=== PATIENT | male | born 1935 | race Caucasian/White ===

== ENCOUNTER → 2016-06-11 | Outpatient (REF) | payer MEDICARE, OTHER ==
[2016-06-11 17:31] LABS: BASO % 0.3 % (0.0-1.0); EOS # 0.3 K/mm3 (0.0-0.50); EOS % 5.9 % (0.0-3.0); LARGE UNSTAINED CELL # 0.1 K/mm3 (0.0-0.4); LARGE UNSTAINED CELL % 2.1 % (0.0-4.0); LYMPH # 1.5 K/mm3 (1.5-4.5); LYMPH % 25.8 % (24.0-44.0); MEAN CORPUSCULAR HGB CONC 33.7 g/dl (32.0-36.5); MEAN CORPUSCULAR VOLUME 91.8 fl (80.0-96.0); MONO # 0.4 K/mm3 (0.0-0.8); MONO % 7.4 % (0.0-5.0); NEUTROPHILS # 3.3 K/mm3 (1.8-7.7); NEUTROPHILS % 58.5 % (36.0-66.0); PLATELET COUNT, AUTOMATED 204 k/mm3 (150-450); RED CELL DISTRIBUTION WIDTH 12.6 % (11.5-14.5); WHITE BLOOD COUNT 5.6 K/mm3 (4.0-10.0)
[2016-06-11 18:38] LABS: CALCIUM LEVEL 9.5 MG/DL (8.8-10.2); CREATININE FOR GFR 1.46 MG/DL (0.70-1.30); GLOMERULAR FILTRATION RATE 49.5 (>35); POTASSIUM SERUM 4.5 MEQ/L (3.5-5.1)
== END | disposition home or self-care (01) ==
LOC: M LABDRWCV 16:37
PROVIDERS: ATTEND Internal Medicine Interventional Cardiology
DX: I25.810 Atherosclerosis of coronary artery bypass graft(s) without angina pectoris (principal); R94.31 Abnormal electrocardiogram [ECG] [EKG]

== ENCOUNTER → 2016-06-20 | Outpatient (REF) | payer MEDICARE, OTHER ==
[2016-06-20 18:03] LABS: CREATININE FOR GFR 1.67 MG/DL (0.70-1.30); GLOMERULAR FILTRATION RATE 42.4 (>35)
== END ==
LOC: M LABDRWCV 16:09
PROVIDERS: ATTEND Internal Medicine Interventional Cardiology
DX: R79.89 Other specified abnormal findings of blood chemistry (principal); I10 Essential (primary) hypertension; E11.9 Type 2 diabetes mellitus without complications; J45.909 Unspecified asthma, uncomplicated; E78.00 Pure hypercholesterolemia, unspecified

== ENCOUNTER → 2016-07-10 | Outpatient (REF) | payer MEDICARE, OTHER ==
[2016-07-10 16:52] LABS: MEAN CORPUSCULAR HEMOGLOBIN 31.5 pg (27.0-33.0); MEAN CORPUSCULAR HGB CONC 33.9 g/dl (32.0-36.5); MEAN CORPUSCULAR VOLUME 93.1 fl (80.0-96.0); RED CELL DISTRIBUTION WIDTH 12.8 % (11.5-14.5); WHITE BLOOD COUNT 7.4 K/mm3 (4.0-10.0)
[2016-07-10 17:12] LABS: ALBUMIN 3.9 GM/DL (3.2-5.2); ALBUMIN/GLOBULIN RATIO 1.26 (1.00-1.93); BILIRUBIN,TOTAL 0.3 MG/DL (0.2-1.0); CALCIUM LEVEL 9.3 MG/DL (8.8-10.2); CREATININE FOR GFR 1.63 MG/DL (0.70-1.30); GLOMERULAR FILTRATION RATE 43.6 (>35); POTASSIUM SERUM 4.5 MEQ/L (3.5-5.1)
== END ==
LOC: M SFHCCAPE 07:00
PROVIDERS: ATTEND Internal Medicine
DX: D64.9 Anemia, unspecified (principal); E11.9 Type 2 diabetes mellitus without complications; E78.00 Pure hypercholesterolemia, unspecified
CPT/HCPCS: 36415; 80053; 80061; 82043; 83036; 85027; G0463

== ENCOUNTER 2016-07-19 13:46 | Outpatient (RCR) | payer MEDICARE, OTHER | END 2016-07-23 | LOC: M CR 13:46 | PROVIDERS: ATTEND Internal Medicine Cardiovascular Disease | DX: Z51.89 Encounter for other specified aftercare (principal); I25.10 Atherosclerotic heart disease of native coronary artery without angina pectoris ==

== ENCOUNTER → 2016-08-23 | Outpatient (RCR) | payer MEDICARE, OTHER | LOC: M CR 07-24 10:02 | PROVIDERS: ATTEND Internal Medicine Cardiovascular Disease | DX: Z51.89 Encounter for other specified aftercare (principal); I25.10 Atherosclerotic heart disease of native coronary artery without angina pectoris ==

== ENCOUNTER 2016-09-17 21:03 | Emergency (ER) | payer MEDICARE, OTHER ==
[~2016-09-17] VITALS: Ht 182.9 cm; Wt 104.3 kg
[2016-09-17] MEDS ORDERED: CARV6.25 PO (21:14)
[2016-09-17] MEDS ORDERED: BRIM1OPD OU (21:14)
[2016-09-17] MEDS ORDERED: GLIM4TAB PO (21:14)
[2016-09-17] MEDS ORDERED: AMLO5TAB2 PO (21:14)
[2016-09-17] MEDS ORDERED: METF500T4 PO (21:14)
[2016-09-17] MEDS ORDERED: LATA5OPD OU (21:14)
[2016-09-17] MEDS ORDERED: LOSARTAN-HCTZ PO (21:14)
[2016-09-17] MEDS ORDERED: BYDU1INJ INJ (21:14)
[2016-09-17] MEDS ORDERED: ROSU20TA PO (21:14)
[2016-09-17] MEDS ORDERED: LIDOCAINE 1% MDV 20ML VIAL SC ONE (21:45)
[2016-09-17] MEDS ORDERED: TETANUS/DIPHTHERIA TOX ADSORB ADULT 0.5ML SYR/VIAL (90714) IM ONE (22:00)
[2016-09-17 22:14] VITALS: BP 144/90
== END 2016-09-17 22:40 | disposition home or self-care (01) ==
LOC: M ED 22:01
DX: S61.211A Laceration without foreign body of left index finger without damage to nail, initial encounter (principal); W31.2XXA Contact with powered woodworking and forming machines, initial encounter; Y92.099 Unspecified place in other non-institutional residence as the place of occurrence of the external cause; Y93.89 Activity, other specified; Y99.8 Other external cause status; E11.22 Type 2 diabetes mellitus with diabetic chronic kidney disease; I12.9 Hypertensive chronic kidney disease with stage 1 through stage 4 chronic kidney disease, or unspecified chronic kidney disease; J45.909 Unspecified asthma, uncomplicated; E78.9 Disorder of lipoprotein metabolism, unspecified; N18.9 Chronic kidney disease, unspecified; Z91.018 Allergy to other foods; Z79.899 Other long term (current) drug therapy; Z79.84 Long term (current) use of oral hypoglycemic drugs

== ENCOUNTER 2016-09-20 12:55 | Outpatient (RCR) | payer MEDICARE, OTHER ==
[~2016-09-20 12:55] MED LIST: AMLO5TAB2 PO; BRIM1OPD OU; BYDU1INJ INJ; CARV6.25 PO; GLIM4TAB PO; LATA5OPD OU; LOSARTAN-HCTZ PO; METF500T4 PO; ROSU20TA PO
== END 2016-09-22 ==
LOC: M CR 12:55
PROVIDERS: ATTEND Internal Medicine Cardiovascular Disease
DX: Z51.89 Encounter for other specified aftercare (principal); I25.10 Atherosclerotic heart disease of native coronary artery without angina pectoris

== ENCOUNTER 2016-10-02 10:00 | Outpatient (RCR) | payer MEDICARE, OTHER | END 2016-10-23 | LOC: M CR 10:00 | PROVIDERS: ATTEND Internal Medicine Cardiovascular Disease | DX: Z51.89 Encounter for other specified aftercare (principal); I25.10 Atherosclerotic heart disease of native coronary artery without angina pectoris ==

== ENCOUNTER → 2016-11-06 | Outpatient (REF) | payer MEDICARE, OTHER ==
[2016-11-06 19:07] LABS: ALBUMIN 3.8 GM/DL (3.2-5.2); ALBUMIN/GLOBULIN RATIO 1.19 (1.00-1.93); BILIRUBIN,TOTAL 0.3 MG/DL (0.2-1.0); CALCIUM LEVEL 9.1 MG/DL (8.8-10.2); CREATININE FOR GFR 1.52 MG/DL (0.70-1.30); GLOMERULAR FILTRATION RATE 47.2 (>35); POTASSIUM SERUM 4.3 MEQ/L (3.5-5.1)
[2016-11-06 19:47] LABS: MEAN CORPUSCULAR HEMOGLOBIN 31.1 pg (27.0-33.0); MEAN CORPUSCULAR HGB CONC 33.2 g/dl (32.0-36.5); MEAN CORPUSCULAR VOLUME 93.5 fl (80.0-96.0); RED CELL DISTRIBUTION WIDTH 13.1 % (11.5-14.5); WHITE BLOOD COUNT 6.2 K/mm3 (4.0-10.0)
== END ==
LOC: M SFHCCAPE 07:20
PROVIDERS: ATTEND Internal Medicine
DX: E11.9 Type 2 diabetes mellitus without complications (principal); N18.3 Chronic kidney disease, stage 3 (moderate); D64.9 Anemia, unspecified

== ENCOUNTER → 2017-01-01 | Outpatient (REF) | payer MEDICARE, OTHER ==
[2017-01-01 20:34] LABS: CREATININE FOR GFR 1.53 MG/DL (0.70-1.30); GLOMERULAR FILTRATION RATE 46.9 (>35)
== END ==
LOC: M LABDRWCV 17:57
PROVIDERS: ATTEND Otolaryngology
DX: H90.3 Sensorineural hearing loss, bilateral (principal)

== ENCOUNTER → 2017-12-30 | Outpatient (REF) | payer MEDICARE, OTHER ==
[2017-12-30 12:21] LABS: HEMATOCRIT 31.2 % (42.0-52.0); HEMOGLOBIN 10.4 g/dl (13.5-17.5); MEAN CORPUSCULAR HEMOGLOBIN 30.7 pg (27.0-33.0); MEAN CORPUSCULAR HGB CONC 33.3 g/dl (32.0-36.5); PLATELET COUNT, AUTOMATED 188 10^3/uL (150-450); RED BLOOD COUNT 3.39 10^6/uL (4.30-6.10); RED CELL DISTRIBUTION WIDTH 12.9 % (11.5-14.5); WHITE BLOOD COUNT 5.7 10^3/uL (4.0-10.0)
[2017-12-30 12:47] LABS: PTH INTACT 111.1 PG/ML (18.5-88.0)
[2017-12-30 12:58] LABS: ALBUMIN/GLOBULIN RATIO 1.14 (1.00-1.93); ALKALINE PHOSPHATASE 67 U/L (45-117); ALT/SGPT 24 U/L (12-78); ANION GAP 8 MEQ/L (8-16); AST/SGOT 21 U/L (7-37); BILIRUBIN,TOTAL 0.4 MG/DL (0.2-1.0); BLOOD UREA NITROGEN 25 MG/DL (7-18); CALCIUM LEVEL 8.9 MG/DL (8.8-10.2); CARBON DIOXIDE LEVEL 27 MEQ/L (21-32); CHLORIDE LEVEL 107 MEQ/L (98-107); CHOLESTEROL LEVEL 194 MG/DL (<200); CHOLESTEROL RISK RATIO 4.311 (<5); GLOMERULAR FILTRATION RATE 38.7 (>35); GLUCOSE, FASTING 151 MG/DL (70-100); HDL CHOLESTEROL 45 MG/DL (>40); LDL CHOLESTEROL 109.4 MG/DL (<100); MAGNESIUM LEVEL 2.4 MG/DL (1.8-2.4); NON-HDL-C 149 MG/DL; POTASSIUM SERUM 4.8 MEQ/L (3.5-5.1); SODIUM LEVEL 142 MEQ/L (136-145); TOTAL PROTEIN 7.5 GM/DL (6.4-8.2); TRIGLYCERIDES LEVEL 198 MG/DL (<150)
[2017-12-30 14:08] LABS: ESTIMATED AVERAGE GLUCOSE 180 MG/DL (60-110); HEMOGLOBIN A1c 7.9 %
[2017-12-31 22:53] LABS: MAU/CREAT RATIO 119.6 MCG/MG (0.0-30.0)
== END ==
LOC: M SFHCPLAZ 11:24
DX: I12.9 Hypertensive chronic kidney disease with stage 1 through stage 4 chronic kidney disease, or unspecified chronic kidney disease (principal); E11.22 Type 2 diabetes mellitus with diabetic chronic kidney disease; D64.9 Anemia, unspecified; N18.3 Chronic kidney disease, stage 3 (moderate); E78.00 Pure hypercholesterolemia, unspecified
CPT/HCPCS: 83735

== ENCOUNTER → 2018-06-01 | Outpatient (REF) | payer MEDICARE, OTHER ==
[~2018-06-01] MED LIST changes: -AMLO5TAB2 PO; +AMLO5TAB6 PO; -ROSU20TA PO; +ROSU20TA4 PO
[2018-06-01 16:57] LABS: HEMATOCRIT 31.8 % (42.0-52.0); HEMOGLOBIN 10.2 g/dl (13.5-17.5); MEAN CORPUSCULAR HEMOGLOBIN 30.1 pg (27.0-33.0); MEAN CORPUSCULAR HGB CONC 32.1 g/dl (32.0-36.5); MEAN CORPUSCULAR VOLUME 93.8 fl (80.0-96.0); PLATELET COUNT, AUTOMATED 206 10^3/uL (150-450); RED BLOOD COUNT 3.39 10^6/uL (4.30-6.10); WHITE BLOOD COUNT 7.6 10^3/uL (4.0-10.0)
[2018-06-01 17:05] LABS: BILIRUBIN,TOTAL 0.3 MG/DL (0.2-1.0); CALCIUM LEVEL 8.7 MG/DL (8.8-10.2); CHOLESTEROL RISK RATIO 4.173 (<5); CREATININE FOR GFR 1.62 MG/DL (0.70-1.30); GLOMERULAR FILTRATION RATE 43.6 (>35); MAGNESIUM LEVEL 2.2 MG/DL (1.8-2.4); POTASSIUM SERUM 4.5 MEQ/L (3.5-5.1); PTH INTACT 87.1 PG/ML (18.5-88.0); TOTAL PROTEIN 7.2 GM/DL (6.4-8.2)
[2018-06-01 17:56] LABS: HEMOGLOBIN A1c 8.1 %
[2018-06-01 17:59] LABS: MAU/CREAT RATIO 244.6 MCG/MG (0.0-30.0)
== END ==
LOC: M SFHCCAPE 10:40
PROVIDERS: ATTEND Physician Assistant
DX: D64.9 Anemia, unspecified (principal); I12.9 Hypertensive chronic kidney disease with stage 1 through stage 4 chronic kidney disease, or unspecified chronic kidney disease; E11.9 Type 2 diabetes mellitus without complications; E78.00 Pure hypercholesterolemia, unspecified; N18.3 Chronic kidney disease, stage 3 (moderate)

== ENCOUNTER → 2018-10-13 | Outpatient (REF) | payer MEDICARE, OTHER ==
[~2018-10-13] MED LIST changes: +LATA0.0013 OU; -LATA5OPD OU
[2018-10-13 17:18] LABS: ALBUMIN 3.8 GM/DL (3.2-5.2); BILIRUBIN,TOTAL 0.3 MG/DL (0.2-1.0); CALCIUM LEVEL 9.1 MG/DL (8.8-10.2); CHOLESTEROL RISK RATIO 4.333 (<5); CREATININE FOR GFR 1.59 MG/DL (0.70-1.30); GLOMERULAR FILTRATION RATE 44.6 (>35); POTASSIUM SERUM 4.3 MEQ/L (3.5-5.1); TOTAL PROTEIN 6.7 GM/DL (6.4-8.2)
[2018-10-13 17:24] LABS: PTH INTACT 74.9 PG/ML (18.5-88.0)
[2018-10-13 19:36] LABS: HEMOGLOBIN A1c 8.1 %
== END ==
LOC: M SFHCCAPE 07:47
PROVIDERS: ATTEND Internal Medicine
DX: E11.9 Type 2 diabetes mellitus without complications (principal); E78.00 Pure hypercholesterolemia, unspecified; N18.3 Chronic kidney disease, stage 3 (moderate)

== ENCOUNTER → 2019-03-11 | Outpatient (REF) | payer MEDICARE, OTHER ==
[~2019-03-11] MED LIST changes: -GLIM4TAB PO; +GLIM4TAB3 PO; +METF-791 PO; -METF500T4 PO; -ROSU20TA4 PO; +ROSU20TA5 PO
[2019-03-11 16:32] LABS: HEMATOCRIT 29.1 % (42.0-52.0); HEMOGLOBIN 9.6 g/dl (13.5-17.5); PLATELET COUNT, AUTOMATED 178 10^3/uL (150-450); WHITE BLOOD COUNT 5.9 10^3/uL (4.0-10.0)
[2019-03-11 16:43] LABS: ALBUMIN 3.6 GM/DL (3.2-5.2); BILIRUBIN,TOTAL 0.4 MG/DL (0.2-1.0); CALCIUM LEVEL 8.8 MG/DL (8.8-10.2); CHOLESTEROL RISK RATIO 3.541 (<5); CREATININE FOR GFR 1.63 MG/DL (0.70-1.30); GLOMERULAR FILTRATION RATE 43.3 (>35); POTASSIUM SERUM 4.2 MEQ/L (3.5-5.1); TOTAL PROTEIN 6.7 GM/DL (6.4-8.2)
[2019-03-11 16:51] LABS: HEMOGLOBIN A1c 8.3 %
[2019-03-11 17:21] LABS: MAU/CREAT RATIO 412.1 MCG/MG (0.0-30.0)
== END ==
LOC: M SFHCCAPE 07:29
PROVIDERS: ATTEND Internal Medicine
DX: D64.9 Anemia, unspecified (principal); E11.9 Type 2 diabetes mellitus without complications; N18.3 Chronic kidney disease, stage 3 (moderate); E78.00 Pure hypercholesterolemia, unspecified

== ENCOUNTER → 2019-07-26 | Outpatient (REF) | payer MEDICARE, OTHER ==
[~2019-07-26] MED LIST changes: -GLIM4TAB3 PO; +GLIM4TAB5 PO
[2019-07-26 18:14] LABS: HEMOGLOBIN 9.7 g/dl (13.5-17.5); MEAN CORPUSCULAR HEMOGLOBIN 30.3 pg (27.0-33.0); MEAN CORPUSCULAR HGB CONC 32.3 g/dl (32.0-36.5); MEAN CORPUSCULAR VOLUME 93.8 fl (80.0-96.0); PLATELET COUNT, AUTOMATED 159 10^3/uL (150-450); WHITE BLOOD COUNT 5.4 10^3/uL (4.0-10.0)
[2019-07-26 18:45] LABS: ALBUMIN 3.9 GM/DL (3.2-5.2); BILIRUBIN,TOTAL 0.7 MG/DL (0.2-1.0); CALCIUM LEVEL 9.2 MG/DL (8.8-10.2); CHOLESTEROL RISK RATIO 4.461 (<5); CREATININE FOR GFR 1.71 MG/DL (0.70-1.30); FOLATE 7.5 NG/ML; GLOMERULAR FILTRATION RATE 40.9 (>35); MAGNESIUM LEVEL 2.1 MG/DL (1.8-2.4); POTASSIUM SERUM 4.3 MEQ/L (3.5-5.1); PTH INTACT 89.4 PG/ML (18.5-88.0)
[2019-07-26 19:24] LABS: MAU/CREAT RATIO 418.3 MCG/MG (0.0-30.0)
[2019-07-26 19:27] LABS: HEMOGLOBIN A1c 8.5 %
== END ==
LOC: M SFHCCAPE 07:15
PROVIDERS: ATTEND Internal Medicine
DX: D64.9 Anemia, unspecified (principal); N18.3 Chronic kidney disease, stage 3 (moderate); E11.9 Type 2 diabetes mellitus without complications; E78.00 Pure hypercholesterolemia, unspecified; I12.9 Hypertensive chronic kidney disease with stage 1 through stage 4 chronic kidney disease, or unspecified chronic kidney disease

== ENCOUNTER → 2020-01-05 | Outpatient (REF) | payer MEDICARE, OTHER ==
[~2020-01-05] MED LIST changes: +AMLO1TAB24 PO; -AMLO5TAB6 PO; -METF-791 PO; +METF-838 PO
[2020-02-05 10:27] LABS: HEMATOCRIT 30.2 % (42.0-52.0); HEMOGLOBIN 9.7 g/dl (13.5-17.5); MEAN CORPUSCULAR HEMOGLOBIN 31.7 pg (27.0-33.0); MEAN CORPUSCULAR HGB CONC 32.1 g/dl (32.0-36.5); MEAN CORPUSCULAR VOLUME 98.7 fl (80.0-96.0); PLATELET COUNT, AUTOMATED 152 10^3/uL (150-450); RED BLOOD COUNT 3.06 10^6/uL (4.30-6.10); WHITE BLOOD COUNT 7.1 10^3/uL (4.0-10.0)
[2020-02-18 21:54] LABS: BILIRUBIN,TOTAL 0.3 MG/DL (0.2-1.0); CHOLESTEROL RISK RATIO 4.179 (<5); CREATININE FOR GFR 1.78 MG/DL (0.70-1.30); GLOMERULAR FILTRATION RATE 39.1 (>35); HEMOGLOBIN A1c 7.2 %; POTASSIUM SERUM 4.8 MEQ/L (3.5-5.1); TOTAL PROTEIN 6.9 GM/DL (6.4-8.2)
== END ==
LOC: M LABDRAWC 15:20
PROVIDERS: ATTEND Internal Medicine
DX: D64.9 Anemia, unspecified (principal); G47.30 Sleep apnea, unspecified; N18.3 Chronic kidney disease, stage 3 (moderate); E78.00 Pure hypercholesterolemia, unspecified; I25.10 Atherosclerotic heart disease of native coronary artery without angina pectoris; E11.21 Type 2 diabetes mellitus with diabetic nephropathy

== ENCOUNTER → 2020-08-24 | Outpatient (REF) | payer MEDICARE, OTHER ==
[2020-08-24 18:02] LABS: CALCIUM LEVEL 9.6 MG/DL (8.8-10.2); CREATININE FOR GFR 1.59 MG/DL (0.70-1.30); GLOMERULAR FILTRATION RATE 44.4 (>35); POTASSIUM SERUM 4.6 MEQ/L (3.5-5.1)
[2020-08-24 18:20] LABS: BASO % 0.5 % (0.0-1.0); EOS # 0.9 10^3/uL (0.0-0.5); EOS % 11.4 % (0.0-3.0); HEMATOCRIT 31.7 % (42.0-52.0); LYMPH # 1.6 10^3/uL (1.5-5.0); LYMPH % 20.7 % (24.0-44.0); MEAN CORPUSCULAR HEMOGLOBIN 30.4 pg (27.0-33.0); MEAN CORPUSCULAR HGB CONC 31.5 g/dl (32.0-36.5); MEAN CORPUSCULAR VOLUME 96.4 fl (80.0-96.0); MONO # 0.6 10^3/uL (0.0-0.8); MONO % 8.1 % (2.0-8.0); NEUTROPHILS # 4.6 10^3/uL (1.5-8.5); NEUTROPHILS % 58.9 % (36.0-66.0); PLATELET COUNT, AUTOMATED 183 10^3/uL (150-450); RED BLOOD COUNT 3.29 10^6/uL (4.30-6.10); WHITE BLOOD COUNT 7.8 10^3/uL (4.0-10.0)
== END ==
LOC: M LABDRWCV 16:07
PROVIDERS: ATTEND Internal Medicine Cardiovascular Disease
DX: I25.10 Atherosclerotic heart disease of native coronary artery without angina pectoris (principal); R94.39 Abnormal result of other cardiovascular function study

== ENCOUNTER → 2020-09-06 | Outpatient (REF) | payer MEDICARE, OTHER ==
[2020-09-07 01:47] LABS: HEMOGLOBIN A1c 7.4 %
== END ==
LOC: M SFHCPLAZ 14:32
PROVIDERS: ATTEND Internal Medicine
DX: E11.21 Type 2 diabetes mellitus with diabetic nephropathy (principal)
CPT/HCPCS: 36415; 83036; G0463

== ENCOUNTER → 2021-01-01 | Outpatient (REF) | payer MEDICARE, OTHER ==
[2021-01-01 15:22] LABS: BASO % 0.3 % (0.0-1.0); EOS # 0.5 10^3/uL (0.0-0.5); HEMATOCRIT 29.1 % (42.0-52.0); HEMOGLOBIN 9.4 g/dl (13.5-17.5); LYMPH # 1.5 10^3/uL (1.5-5.0); LYMPH % 23.1 % (24.0-44.0); MEAN CORPUSCULAR HEMOGLOBIN 30.9 pg (27.0-33.0); MEAN CORPUSCULAR HGB CONC 32.3 g/dl (32.0-36.5); MEAN CORPUSCULAR VOLUME 95.7 fl (80.0-96.0); MONO # 0.6 10^3/uL (0.0-0.8); MONO % 8.8 % (2.0-8.0); NEUTROPHILS % 60.5 % (36.0-66.0); PLATELET COUNT, AUTOMATED 181 10^3/uL (150-450); RED BLOOD COUNT 3.04 10^6/uL (4.30-6.10); WHITE BLOOD COUNT 6.6 10^3/uL (4.0-10.0)
[2021-01-01 15:43] LABS: HEMOGLOBIN A1c 7.3 %
[2021-01-01 15:56] LABS: ALBUMIN 3.9 GM/DL (3.2-5.2); BILIRUBIN,TOTAL 0.3 MG/DL (0.2-1.0); CALCIUM LEVEL 8.9 MG/DL (8.8-10.2); CHOLESTEROL RISK RATIO 3.953 (<5); CREATININE FOR GFR 1.77 MG/DL (0.70-1.30); GLOMERULAR FILTRATION RATE 39.2 (>35); POTASSIUM SERUM 4.6 MEQ/L (3.5-5.1); TOTAL PROTEIN 6.8 GM/DL (6.4-8.2)
[2021-01-01 16:02] LABS: PTH INTACT 89.9 PG/ML (18.5-88.0)
== END ==
LOC: M SFHCCAPE 08:40
PROVIDERS: ATTEND Internal Medicine
DX: D64.9 Anemia, unspecified (principal); N18.30 Chronic kidney disease, stage 3 unspecified; E11.21 Type 2 diabetes mellitus with diabetic nephropathy; I25.10 Atherosclerotic heart disease of native coronary artery without angina pectoris
CPT/HCPCS: 80053; 80061; 82043; 83036; 83735; 83970; 85025; G0463

== ENCOUNTER → 2021-02-06 | Outpatient (REF) | payer MEDICARE, OTHER ==
[2021-02-06 15:46] LABS: BASO % 0.3 % (0.0-1.0); EOS # 0.3 10^3/uL (0.0-0.5); EOS % 4.1 % (0.0-3.0); HEMATOCRIT 28.9 % (42.0-52.0); HEMOGLOBIN 9.5 g/dl (13.5-17.5); LYMPH # 1.3 10^3/uL (1.5-5.0); LYMPH % 21.1 % (24.0-44.0); MEAN CORPUSCULAR HEMOGLOBIN 31.7 pg (27.0-33.0); MEAN CORPUSCULAR HGB CONC 32.9 g/dl (32.0-36.5); MEAN CORPUSCULAR VOLUME 96.3 fl (80.0-96.0); MONO # 0.6 10^3/uL (0.0-0.8); NEUTROPHILS # 3.9 10^3/uL (1.5-8.5); NEUTROPHILS % 64.7 % (36.0-66.0); PLATELET COUNT, AUTOMATED 174 10^3/uL (150-450); WHITE BLOOD COUNT 6.1 10^3/uL (4.0-10.0)
[2021-02-06 16:16] LABS: ALBUMIN 3.6 GM/DL (3.2-5.2); BILIRUBIN,TOTAL 0.4 MG/DL (0.2-1.0); CREATININE FOR GFR 1.59 MG/DL (0.70-1.30); GLOMERULAR FILTRATION RATE 44.4 (>35); POTASSIUM SERUM 4.7 MEQ/L (3.5-5.1); TOTAL PROTEIN 6.8 GM/DL (6.4-8.2); URIC ACID 6.7 MG/DL (3.5-7.2)
[2021-02-08 16:09] LABS: Lyme Disease IgG/IgM Antibodie <0.91 ISR (0.00-0.90); Lyme Disease IgM Ab Quantitati <0.80 index (0.00-0.79)
== END ==
LOC: M SFHCCAPE 12:04
PROVIDERS: ATTEND Physician Assistant
DX: M25.472 Effusion, left ankle (principal); M25.572 Pain in left ankle and joints of left foot
CPT/HCPCS: 36415; 80053; 84550; 85025; 86617; G0463

== ENCOUNTER → 2021-02-12 | Outpatient (CLI) | payer MEDICARE, OTHER | LOC: M CLY 14:14 | PROVIDERS: ATTEND Physician Assistant | DX: M25.472 Effusion, left ankle (principal) ==

== ENCOUNTER → 2021-02-22 | Outpatient (REF) | payer MEDICARE, OTHER | LOC: M SFHCCAPE 13:07 | PROVIDERS: ATTEND Physician Assistant | DX: R19.7 Diarrhea, unspecified (principal) ==

== ENCOUNTER → 2021-02-23 | Outpatient (CLI) | payer MEDICARE, OTHER | LOC: M LABSMTC 10:11 | PROVIDERS: ATTEND Pediatrics | DX: Z20.822 Contact with and (suspected) exposure to COVID-19 (principal) | CPT/HCPCS: C9803; U0003 ==

== ENCOUNTER → 2021-08-09 | Outpatient (REF) | payer MEDICARE, OTHER ==
[2021-08-09 17:02] LABS: BASO % 0.4 % (0.0-1.0); EOS # 0.3 10^3/uL (0.0-0.5); EOS % 3.7 % (0.0-3.0); HEMATOCRIT 24.9 % (42.0-52.0); HEMOGLOBIN 7.6 g/dl (13.5-17.5); LYMPH # 0.9 10^3/uL (1.5-5.0); LYMPH % 11.5 % (24.0-44.0); MEAN CORPUSCULAR HGB CONC 30.5 g/dl (32.0-36.5); MEAN CORPUSCULAR VOLUME 98.4 fl (80.0-96.0); MONO # 0.7 10^3/uL (0.0-0.8); MONO % 9.5 % (2.0-8.0); NEUTROPHILS # 5.6 10^3/uL (1.5-8.5); NEUTROPHILS % 74.5 % (36.0-66.0); PLATELET COUNT, AUTOMATED 170 10^3/uL (150-450); RED BLOOD COUNT 2.53 10^6/uL (4.30-6.10); WHITE BLOOD COUNT 7.5 10^3/uL (4.0-10.0)
[2021-08-09 17:29] LABS: CREATININE FOR GFR 1.81 MG/DL (0.70-1.30); GLOMERULAR FILTRATION RATE 38.1 (>35); PERCENT SATURATION 9.6 % (19.7-50.0); POTASSIUM SERUM 4.5 MEQ/L (3.5-5.1)
[2021-08-09 18:41] LABS: HEMOGLOBIN A1c 6.3 %
== END ==
LOC: M SFHCCAPE 08:37
PROVIDERS: ATTEND Internal Medicine
DX: I12.9 Hypertensive chronic kidney disease with stage 1 through stage 4 chronic kidney disease, or unspecified chronic kidney disease (principal); D64.9 Anemia, unspecified; E11.21 Type 2 diabetes mellitus with diabetic nephropathy

== ENCOUNTER 2021-08-16 12:24 | Inpatient (IN) | payer MEDICARE, OTHER ==
[~2021-08-16] VITALS: Ht 182.9 cm; Wt 93.0 kg
[2021-08-16] VITALS (7 sets, daily range): BP systolic 112–181; BP diastolic 53–100; O2SAT 97
[2021-08-16] MEDS ORDERED: COMBIVENT RESPIMAT 100-20MCG INHALER 4GM INH STA (12:44)
[2021-08-16] MEDS ORDERED: methylPREDNISolone 125MG 2ML VIAL IV ONE (12:45)
[2021-08-16 13:05] LABS: VENOUS BASE EXCESS -5.5 (-2.0-2.0); VENOUS HCO3 22.3 MEQ/L (23.0-27.0); VENOUS PARTIAL PRESSURE CO2 55.1 mmHg (38.0-50.0); VENOUS PARTIAL PRESSURE O2 40.1 mmHg (30.0-50.0); VENOUS PH 7.225 UNITS (7.330-7.430); VENOUS STANDARD HCO3 19.4 MEQ/L
[2021-08-16 13:05] LABS: BASO % 0.3 % (0.0-1.0); EOS # 0.2 10^3/uL (0.0-0.5); EOS % 1.3 % (0.0-3.0); HEMATOCRIT 29.3 % (42.0-52.0); LYMPH # 2.7 10^3/uL (1.5-5.0); LYMPH % 20.8 % (24.0-44.0); MEAN CORPUSCULAR HEMOGLOBIN 29.4 pg (27.0-33.0); MEAN CORPUSCULAR HGB CONC 30.7 g/dl (32.0-36.5); MEAN CORPUSCULAR VOLUME 95.8 fl (80.0-96.0); MONO % 7.9 % (2.0-8.0); NEUTROPHILS # 8.9 10^3/uL (1.5-8.5); NEUTROPHILS % 69.2 % (36.0-66.0); PLATELET COUNT, AUTOMATED 263 10^3/uL (150-450); RED BLOOD COUNT 3.06 10^6/uL (4.30-6.10); WHITE BLOOD COUNT 12.8 10^3/uL (4.0-10.0)
[2021-08-16 13:33] LABS: ALBUMIN 4.1 GM/DL (3.2-5.2); BILIRUBIN,DIRECT 0.2 MG/DL (0.0-0.2); BILIRUBIN,TOTAL 0.6 MG/DL (0.2-1.0); CALCIUM LEVEL 9.3 MG/DL (8.8-10.2); CREATININE FOR GFR 2.24 MG/DL (0.70-1.30); GLOMERULAR FILTRATION RATE 29.8 (>35); POTASSIUM SERUM 4.7 MEQ/L (3.5-5.1); THYROID STIMULATING HORMONE 2.01 uIU/ML (0.358-3.740); THYROXINE (T4) 7.8 UG/DL (4.5-12.0); TOTAL PROTEIN 7.5 GM/DL (6.4-8.2)
[2021-08-16] MEDS ORDERED: FUROSEMIDE 40MG/4ML VIAL (J1940) IV ONE (13:45)
[2021-08-16] MEDS ORDERED: NS 1,000 ML IV SCH (14:45)
[2021-08-16] MEDS ORDERED: METF-723 PO (15:08)
[2021-08-16] MEDS ORDERED: GLIM2TAB29 PO (15:08)
[2021-08-16] MEDS ORDERED: ASPI81TA26 PO (15:19)
[2021-08-16] MEDS ORDERED: VITA100018 PO (15:19)
[2021-08-16] MEDS ORDERED: VASC1CAP2 PO (15:19)
[2021-08-16] MEDS ORDERED: CEFU50TA PO (15:19)
[2021-08-16] MEDS ORDERED: HYDR12.55 PO (15:19)
[2021-08-16] MEDS ORDERED: FERR325T3 PO (15:19)
[2021-08-16] MEDS ORDERED: VENTAER INH (15:19)
[2021-08-16] MEDS ORDERED: PRED10TA2 PO (15:19)
[2021-08-16] MEDS ORDERED: XALA0.007 OU (15:19)
[2021-08-16] MEDS ORDERED: NITR0.4S14 SL (15:19)
[2021-08-16] MEDS ORDERED: HOME MED LIST COMPLETE! XX SCH (15:20)
[2021-08-16] MEDS ORDERED: GLUCAGON INJ 1MG VIAL SC PRN (15:30)
[2021-08-16] MEDS ORDERED: GLUCOSE 4GM CHEW TABLET PO PRN (15:30)
[2021-08-16] MEDS ORDERED: DEXTROSE 50% 50 ML SYRINGE IV PRN (15:30)
[2021-08-16] MEDS ORDERED: NITROGLYCERIN 2% OINT 1 GM *U/D* PKT TOP ONE (16:45)
[2021-08-16] MEDS ORDERED: FUROSEMIDE 100MG/10ML VIAL (J1940) IV SCH (17:00)
[2021-08-16] MEDS: HumaLOG INSULIN (NovoLOG) PER UNIT SC SCH ×2 (17:59→21:00)
[2021-08-16] MEDS: **hydrALAZINE HCL** 25 MG TAB PO SCH (18:00)
[2021-08-16 20:28] LABS: CK-MB VALUE MASS 5.1 NG/ML (<3.6); MB/CK RELATIVE INDEX 2.76 (< OR =4)
[2021-08-16] MEDS: LEVALBUTEROL 1.25 MG/0.5 ML CONCENTRATE NEB INH SCH (20:30)
[2021-08-16] MEDS: ROSUVASTATIN 10 MG TAB (CRESTOR) PO SCH (21:30)
[2021-08-16] MEDS: ASPIRIN 81MG ENTERIC TABLET PO SCH (21:30)
[2021-08-16] MEDS: BRIMONIDINE 0.1% OPHTH SOLN 5 ML OU SCH (21:31)
[2021-08-16] MEDS: CARVedilol 6.25 MG TAB PO SCH (21:31)
[2021-08-17] VITALS (19 sets, daily range): BP systolic 125–174; BP diastolic 60–79
[2021-08-17] MEDS: LEVALBUTEROL 1.25 MG/0.5 ML CONCENTRATE NEB INH SCH ×4 (01:40→19:49)
[2021-08-17 05:37] LABS: HEMATOCRIT 23.6 % (42.0-52.0); HEMOGLOBIN 7.5 g/dl (13.5-17.5); LYMPH # 0.6 10^3/uL (1.5-5.0); LYMPH % 10.1 % (24.0-44.0); MEAN CORPUSCULAR HEMOGLOBIN 29.6 pg (27.0-33.0); MEAN CORPUSCULAR HGB CONC 31.8 g/dl (32.0-36.5); MEAN CORPUSCULAR VOLUME 93.3 fl (80.0-96.0); MONO # 0.2 10^3/uL (0.0-0.8); MONO % 3.3 % (2.0-8.0); NEUTROPHILS # 5.3 10^3/uL (1.5-8.5); NEUTROPHILS % 86.3 % (36.0-66.0); PLATELET COUNT, AUTOMATED 207 10^3/uL (150-450); RED BLOOD COUNT 2.53 10^6/uL (4.30-6.10); WHITE BLOOD COUNT 6.1 10^3/uL (4.0-10.0)
[2021-08-17 05:54] LABS: CALCIUM LEVEL 9.1 MG/DL (8.8-10.2); CREATININE FOR GFR 2.24 MG/DL (0.70-1.30); GLOMERULAR FILTRATION RATE 29.8 (>35); MAGNESIUM LEVEL 1.8 MG/DL (1.8-2.4); POTASSIUM SERUM 4.6 MEQ/L (3.5-5.1)
[2021-08-17 05:59] LABS: CK-MB VALUE MASS 4.7 NG/ML (<3.6); MB/CK RELATIVE INDEX 2.96 (< OR =4)
[2021-08-17] MEDS: **hydrALAZINE HCL** 25 MG TAB PO SCH ×4 (06:00→17:58)
[2021-08-17] MEDS: GLIMEPIRIDE 2 MG TAB PO SCH (08:18)
[2021-08-17] MEDS: CARVedilol 6.25 MG TAB PO SCH ×2 (08:19→20:41)
[2021-08-17] MEDS: HumaLOG INSULIN (NovoLOG) PER UNIT SC SCH ×4 (08:20→20:47)
[2021-08-17] MEDS: BRIMONIDINE 0.1% OPHTH SOLN 5 ML OU SCH ×2 (08:21→22:10)
[2021-08-17] MEDS ORDERED: predniSONE 10 MG TAB PO SCH (09:00)
[2021-08-17] MEDS: LATANOPROST 0.005% OPHTH SOLN 2.5 ML OU SCH (10:34)
[2021-08-17] MEDS ORDERED: ACETAMINOPHEN TAB 650MG DOSE (2X325MG) PO ONE (20:30)
[2021-08-17] MEDS: ASPIRIN 81MG ENTERIC TABLET PO SCH (20:42)
[2021-08-17] MEDS: ROSUVASTATIN 10 MG TAB (CRESTOR) PO SCH (20:42)
[2021-08-18] VITALS (11 sets, daily range): BP systolic 114–150; BP diastolic 56–77
[2021-08-18] MEDS: diphenhydrAMINE 25MG CAP PO ONE ×2 (00:14→01:00)
[2021-08-18] MEDS: LEVALBUTEROL 1.25 MG/0.5 ML CONCENTRATE NEB INH SCH ×4 (00:38→20:33)
[2021-08-18] MEDS: **hydrALAZINE HCL** 25 MG TAB PO SCH ×5 (05:23→23:58)
[2021-08-18 06:20] LABS: BASO % 0.1 % (0.0-1.0); EOS # 0.1 10^3/uL (0.0-0.5); EOS % 0.9 % (0.0-3.0); HEMATOCRIT 24.6 % (42.0-52.0); HEMOGLOBIN 7.8 g/dl (13.5-17.5); LYMPH # 1.6 10^3/uL (1.5-5.0); LYMPH % 18.9 % (24.0-44.0); MEAN CORPUSCULAR HEMOGLOBIN 29.5 pg (27.0-33.0); MEAN CORPUSCULAR HGB CONC 31.7 g/dl (32.0-36.5); MEAN CORPUSCULAR VOLUME 93.2 fl (80.0-96.0); MONO # 0.9 10^3/uL (0.0-0.8); MONO % 10.4 % (2.0-8.0); NEUTROPHILS # 5.9 10^3/uL (1.5-8.5); NEUTROPHILS % 69.2 % (36.0-66.0); PLATELET COUNT, AUTOMATED 221 10^3/uL (150-450); RED BLOOD COUNT 2.64 10^6/uL (4.30-6.10); WHITE BLOOD COUNT 8.5 10^3/uL (4.0-10.0)
[2021-08-18 06:45] LABS: CALCIUM LEVEL 9.2 MG/DL (8.8-10.2); CREATININE FOR GFR 1.79 MG/DL (0.70-1.30); GLOMERULAR FILTRATION RATE 38.6 (>35); MAGNESIUM LEVEL 1.9 MG/DL (1.8-2.4)
[2021-08-18] MEDS: HumaLOG INSULIN (NovoLOG) PER UNIT SC SCH ×4 (07:30→20:16)
[2021-08-18] MEDS: LATANOPROST 0.005% OPHTH SOLN 2.5 ML OU SCH (09:03)
[2021-08-18] MEDS: CARVedilol 6.25 MG TAB PO SCH ×2 (09:03→20:16)
[2021-08-18] MEDS: FUROSEMIDE 40MG/4ML VIAL (J1940) IV SCH ×2 (09:03→18:06)
[2021-08-18] MEDS: GLIMEPIRIDE 2 MG TAB PO SCH (09:03)
[2021-08-18] MEDS: BRIMONIDINE 0.1% OPHTH SOLN 5 ML OU SCH ×2 (10:05→20:57)
[2021-08-18] MEDS ORDERED: BISACODYL 10 MG SUPP PR ONE (12:00)
[2021-08-18] MEDS: ASPIRIN 81MG ENTERIC TABLET PO SCH (20:16)
[2021-08-18] MEDS: ROSUVASTATIN 10 MG TAB (CRESTOR) PO SCH (20:16)
[2021-08-19] VITALS (9 sets, daily range): BP systolic 116–154; BP diastolic 55–80
[2021-08-19] MEDS: LEVALBUTEROL 1.25 MG/0.5 ML CONCENTRATE NEB INH SCH ×3 (00:53→15:10)
[2021-08-19] MEDS: **hydrALAZINE HCL** 25 MG TAB PO SCH ×2 (05:22→12:00)
[2021-08-19 05:33] LABS: BASO % 0.3 % (0.0-1.0); EOS # 0.3 10^3/uL (0.0-0.5); EOS % 3.8 % (0.0-3.0); HEMATOCRIT 27.7 % (42.0-52.0); HEMOGLOBIN 8.7 g/dl (13.5-17.5); LYMPH # 1.5 10^3/uL (1.5-5.0); LYMPH % 20.7 % (24.0-44.0); MEAN CORPUSCULAR HEMOGLOBIN 29.2 pg (27.0-33.0); MEAN CORPUSCULAR HGB CONC 31.4 g/dl (32.0-36.5); MONO # 0.9 10^3/uL (0.0-0.8); MONO % 12.3 % (2.0-8.0); NEUTROPHILS # 4.5 10^3/uL (1.5-8.5); NEUTROPHILS % 62.5 % (36.0-66.0); PLATELET COUNT, AUTOMATED 225 10^3/uL (150-450); RED BLOOD COUNT 2.98 10^6/uL (4.30-6.10); WHITE BLOOD COUNT 7.1 10^3/uL (4.0-10.0)
[2021-08-19 05:52] LABS: CALCIUM LEVEL 8.8 MG/DL (8.8-10.2); CREATININE FOR GFR 1.71 MG/DL (0.70-1.30); GLOMERULAR FILTRATION RATE 40.7 (>35); MAGNESIUM LEVEL 1.8 MG/DL (1.8-2.4); POTASSIUM SERUM 3.7 MEQ/L (3.5-5.1)
[2021-08-19] MEDS: HumaLOG INSULIN (NovoLOG) PER UNIT SC SCH ×2 (07:30→12:24)
[2021-08-19] MEDS: GLIMEPIRIDE 2 MG TAB PO SCH (08:30)
[2021-08-19] MEDS: BRIMONIDINE 0.1% OPHTH SOLN 5 ML OU SCH (08:31)
[2021-08-19] MEDS: CARVedilol 6.25 MG TAB PO SCH (08:31)
[2021-08-19] MEDS ORDERED: LASI40TA9 PO (08:31)
[2021-08-19] MEDS ORDERED: LATANOPROST 0.005% OPHTH SOLN 2.5 ML OU SCH (21:00)
== END 2021-08-19 16:01 | disposition home or self-care (01) | DRG 291 ==
LOC: EDBD 12:24 → M ED 12:24 → M ED INP 15:28 → ENRESERV 16:10 → M ICU 17:41 → M PCU 08-17 17:38
PROVIDERS: ADMIT Internal Medicine Nephrology; ATTEND Internal Medicine Nephrology
PROC: 30233N1 Transfusion of Nonautologous Red Blood Cells into Peripheral Vein, Percutaneous Approach (ICD-10-PCS; principal; 2021-08-18)
DX: I13.0 Hypertensive heart and chronic kidney disease with heart failure and stage 1 through stage 4 chronic kidney disease, or unspecified chronic kidney disease (principal); I50.23 Acute on chronic systolic (congestive) heart failure; J81.0 Acute pulmonary edema; J96.01 Acute respiratory failure with hypoxia; J96.02 Acute respiratory failure with hypercapnia; N18.32 Chronic kidney disease, stage 3b; I25.119 Atherosclerotic heart disease of native coronary artery with unspecified angina pectoris; I16.0 Hypertensive urgency; E11.22 Type 2 diabetes mellitus with diabetic chronic kidney disease; D50.9 Iron deficiency anemia, unspecified; J45.909 Unspecified asthma, uncomplicated; G47.33 Obstructive sleep apnea (adult) (pediatric); H40.9 Unspecified glaucoma; E78.00 Pure hypercholesterolemia, unspecified; G43.909 Migraine, unspecified, not intractable, without status migrainosus; I65.23 Occlusion and stenosis of bilateral carotid arteries; I25.2 Old myocardial infarction; Z95.5 Presence of coronary angioplasty implant and graft; Z85.820 Personal history of malignant melanoma of skin; Z85.828 Personal history of other malignant neoplasm of skin; Z87.891 Personal history of nicotine dependence; Z79.82 Long term (current) use of aspirin; Z79.84 Long term (current) use of oral hypoglycemic drugs; Z79.899 Other long term (current) drug therapy

== ENCOUNTER → 2021-10-03 | Outpatient (REF) | payer MEDICARE, OTHER ==
[~2021-10-03] MED LIST changes: +ASPI81TA26 PO; +CEFU50TA PO; +FERR325T3 PO; +GLIM2TAB29 PO; +HYDR12.55 PO; +LASI40TA9 PO; +METF-723 PO; +NITR0.4S14 SL; +PRED10TA2 PO; +VASC1CAP2 PO; +VENTAER INH; +VITA100018 PO; +XALA0.007 OU
[2021-10-03 17:30] LABS: BASO % 0.5 % (0.0-1.0); EOS # 0.3 10^3/uL (0.0-0.5); EOS % 5.4 % (0.0-3.0); HEMATOCRIT 29.5 % (42.0-52.0); HEMOGLOBIN 9.6 g/dl (13.5-17.5); LYMPH # 1.5 10^3/uL (1.5-5.0); LYMPH % 25.8 % (24.0-44.0); MEAN CORPUSCULAR HEMOGLOBIN 30.3 pg (27.0-33.0); MEAN CORPUSCULAR HGB CONC 32.5 g/dl (32.0-36.5); MEAN CORPUSCULAR VOLUME 93.1 fl (80.0-96.0); MONO # 0.6 10^3/uL (0.0-0.8); MONO % 10.8 % (2.0-8.0); NEUTROPHILS # 3.3 10^3/uL (1.5-8.5); NEUTROPHILS % 57.2 % (36.0-66.0); PLATELET COUNT, AUTOMATED 164 10^3/uL (150-450); RED BLOOD COUNT 3.17 10^6/uL (4.30-6.10); WHITE BLOOD COUNT 5.7 10^3/uL (4.0-10.0)
[2021-10-03 17:53] LABS: CALCIUM LEVEL 9.1 MG/DL (8.8-10.2); CREATININE FOR GFR 2.03 MG/DL (0.70-1.30); GLOMERULAR FILTRATION RATE 33.4 (>35); POTASSIUM SERUM 4.6 MEQ/L (3.5-5.1)
== END ==
LOC: M LABDRWCV 16:03
PROVIDERS: ATTEND Nurse Practitioner Adult Health
DX: I25.10 Atherosclerotic heart disease of native coronary artery without angina pectoris (principal); E78.00 Pure hypercholesterolemia, unspecified; I11.0 Hypertensive heart disease with heart failure; I50.32 Chronic diastolic (congestive) heart failure

== ENCOUNTER → 2021-10-03 | Outpatient (REF) | payer MEDICARE, OTHER ==
[2021-10-03 17:21] LABS: BASO % 0.5 % (0.0-1.0); EOS # 0.3 10^3/uL (0.0-0.5); EOS % 5.7 % (0.0-3.0); HEMATOCRIT 29.9 % (42.0-52.0); HEMOGLOBIN 9.7 g/dl (13.5-17.5); LYMPH # 1.5 10^3/uL (1.5-5.0); LYMPH % 26.9 % (24.0-44.0); MEAN CORPUSCULAR HEMOGLOBIN 30.4 pg (27.0-33.0); MEAN CORPUSCULAR HGB CONC 32.4 g/dl (32.0-36.5); MEAN CORPUSCULAR VOLUME 93.7 fl (80.0-96.0); MONO # 0.5 10^3/uL (0.0-0.8); MONO % 9.5 % (2.0-8.0); NEUTROPHILS # 3.2 10^3/uL (1.5-8.5); NEUTROPHILS % 57.2 % (36.0-66.0); PLATELET COUNT, AUTOMATED 162 10^3/uL (150-450); RED BLOOD COUNT 3.19 10^6/uL (4.30-6.10); WHITE BLOOD COUNT 5.7 10^3/uL (4.0-10.0)
== END ==
LOC: M SFHCCAPE 08:24
PROVIDERS: ATTEND Internal Medicine
DX: D64.9 Anemia, unspecified (principal); I12.9 Hypertensive chronic kidney disease with stage 1 through stage 4 chronic kidney disease, or unspecified chronic kidney disease; N18.30 Chronic kidney disease, stage 3 unspecified

== ENCOUNTER → 2021-10-31 | Outpatient (REF) | payer MEDICARE, OTHER ==
[2021-10-31 16:37] LABS: CALCIUM LEVEL 8.9 MG/DL (8.8-10.2); CREATININE FOR GFR 1.77 MG/DL (0.70-1.30); GLOMERULAR FILTRATION RATE 39.1 (>35); MAGNESIUM LEVEL 1.8 MG/DL (1.8-2.4); POTASSIUM SERUM 4.3 MEQ/L (3.5-5.1)
[2021-10-31 16:54] LABS: PTH INTACT 100.5 PG/ML (18.5-88.0)
== END ==
LOC: M SFHCCAPE 09:04
PROVIDERS: ATTEND Internal Medicine
DX: D64.9 Anemia, unspecified (principal); N18.32 Chronic kidney disease, stage 3b

== ENCOUNTER → 2021-11-05 | Outpatient (REF) | payer MEDICARE, OTHER ==
[2021-11-05 16:31] LABS: BASO % 0.3 % (0.0-1.0); EOS # 0.4 10^3/uL (0.0-0.5); EOS % 5.8 % (0.0-3.0); HEMATOCRIT 27.3 % (42.0-52.0); HEMOGLOBIN 8.6 g/dl (13.5-17.5); LYMPH # 1.7 10^3/uL (1.5-5.0); LYMPH % 26.6 % (24.0-44.0); MEAN CORPUSCULAR HEMOGLOBIN 30.5 pg (27.0-33.0); MEAN CORPUSCULAR HGB CONC 31.5 g/dl (32.0-36.5); MEAN CORPUSCULAR VOLUME 96.8 fl (80.0-96.0); MONO # 0.6 10^3/uL (0.0-0.8); NEUTROPHILS # 3.6 10^3/uL (1.5-8.5); PLATELET COUNT, AUTOMATED 155 10^3/uL (150-450); RED BLOOD COUNT 2.82 10^6/uL (4.30-6.10); WHITE BLOOD COUNT 6.2 10^3/uL (4.0-10.0)
== END ==
LOC: M SFHCCAPE 08:32
PROVIDERS: ATTEND Internal Medicine
DX: D64.9 Anemia, unspecified (principal)

== ENCOUNTER → 2022-01-07 | Outpatient (CLI) | payer MEDICARE, OTHER | LOC: M PLAIMG 15:48 | PROVIDERS: ATTEND Orthopaedic Surgery | DX: M43.12 Spondylolisthesis, cervical region (principal) ==

== ENCOUNTER → 2022-01-18 | Outpatient (CLI) | payer MEDICARE, OTHER ==
[2022-01-18 13:00] LABS: HEMATOCRIT 27.5 % (42.0-52.0); MEAN CORPUSCULAR HEMOGLOBIN 32.4 pg (27.0-33.0); MEAN CORPUSCULAR HGB CONC 32.7 g/dl (32.0-36.5); MEAN CORPUSCULAR VOLUME 98.9 fl (80.0-96.0); PLATELET COUNT, AUTOMATED 163 10^3/uL (150-450); RED BLOOD COUNT 2.78 10^6/uL (4.30-6.10); WHITE BLOOD COUNT 6.1 10^3/uL (4.0-10.0)
[2022-01-18 13:39] LABS: ALBUMIN 4.1 GM/DL (3.2-5.2); BILIRUBIN,TOTAL 0.4 MG/DL (0.2-1.0); CALCIUM LEVEL 9.8 MG/DL (8.8-10.2); CHOLESTEROL RISK RATIO 3.883 (<5); CREATININE FOR GFR 2.34 MG/DL (0.70-1.30); FREE T4 0.87 NG/DL (0.76-1.46); GLOMERULAR FILTRATION RATE 28.3 (>35); PERCENT SATURATION 16.9 % (19.7-50.0); POTASSIUM SERUM 4.4 MEQ/L (3.5-5.1); THYROID STIMULATING HORMONE 1.92 uIU/ML (0.358-3.740); TOTAL PROTEIN 7.3 GM/DL (6.4-8.2)
[2022-01-18 13:52] LABS: HEMOGLOBIN A1c 6.4 %
== END ==
LOC: M PLALAB 11:04
PROVIDERS: ATTEND Internal Medicine Hematology
DX: D64.9 Anemia, unspecified (principal); E11.21 Type 2 diabetes mellitus with diabetic nephropathy

== ENCOUNTER → 2022-01-30 | Outpatient (CLI) | payer MEDICARE, OTHER ==
[2022-01-30 14:13] LABS: ALBUMIN 3.9 GM/DL (3.2-5.2); CALCIUM LEVEL 9.2 MG/DL (8.8-10.2); CREATININE FOR GFR 2.05 MG/DL (0.70-1.30); PHOSPHORUS LEVEL 2.8 MG/DL (2.5-4.9); POTASSIUM SERUM 4.4 MEQ/L (3.5-5.1)
[2022-01-30 14:35] LABS: CREATININE, URINE 48.5 MG/DL; MAU/CREAT RATIO 315.4 MCG/MG (0.0-30.0)
== END ==
LOC: M PLALAB 11:30
PROVIDERS: ATTEND Internal Medicine Hematology
DX: N18.32 Chronic kidney disease, stage 3b (principal)

== ENCOUNTER → 2022-03-20 | Outpatient (CLI) | payer MEDICARE, OTHER | LOC: M RAD 09:07 | PROVIDERS: ATTEND Internal Medicine Nephrology | DX: N18.32 Chronic kidney disease, stage 3b (principal); I70.1 Atherosclerosis of renal artery ==

== ENCOUNTER → 2022-04-04 | Outpatient (REF) | payer MEDICARE, OTHER ==
[2022-04-04 18:11] LABS: BASO % 0.6 % (0.0-1.0); EOS # 0.4 10^3/uL (0.0-0.5); HEMATOCRIT 24.9 % (42.0-52.0); HEMOGLOBIN 7.8 g/dl (13.5-17.5); LYMPH # 1.1 10^3/uL (1.5-5.0); MEAN CORPUSCULAR HEMOGLOBIN 31.2 pg (27.0-33.0); MEAN CORPUSCULAR HGB CONC 31.3 g/dl (32.0-36.5); MEAN CORPUSCULAR VOLUME 99.6 fl (80.0-96.0); MONO # 0.5 10^3/uL (0.0-0.8); MONO % 7.6 % (2.0-8.0); NEUTROPHILS # 4.9 10^3/uL (1.5-8.5); NEUTROPHILS % 70.2 % (36.0-66.0); PLATELET COUNT, AUTOMATED 222 10^3/uL (150-450)
[2022-04-04 18:52] LABS: CALCIUM LEVEL 9.6 MG/DL (8.8-10.2); CREATININE FOR GFR 1.98 MG/DL (0.70-1.30); GLOMERULAR FILTRATION RATE 34.3 (>35); POTASSIUM SERUM 4.6 MEQ/L (3.5-5.1)
== END ==
LOC: M LABDRAWC 17:43 → M LABDRWCV 17:43
PROVIDERS: ATTEND Nurse Practitioner Adult Health
DX: D64.9 Anemia, unspecified (principal); I25.10 Atherosclerotic heart disease of native coronary artery without angina pectoris; R53.83 Other fatigue; I13.0 Hypertensive heart and chronic kidney disease with heart failure and stage 1 through stage 4 chronic kidney disease, or unspecified chronic kidney disease

== ENCOUNTER → 2022-04-10 | Outpatient (REF) | payer MEDICARE, OTHER ==
[2022-04-10 18:26] LABS: BASO % 0.3 % (0.0-1.0); EOS # 0.3 10^3/uL (0.0-0.5); EOS % 4.2 % (0.0-3.0); HEMATOCRIT 23.6 % (42.0-52.0); HEMOGLOBIN 7.3 g/dl (13.5-17.5); LYMPH # 1.2 10^3/uL (1.5-5.0); LYMPH % 16.7 % (24.0-44.0); MEAN CORPUSCULAR HEMOGLOBIN 30.9 pg (27.0-33.0); MEAN CORPUSCULAR HGB CONC 30.9 g/dl (32.0-36.5); MONO # 0.6 10^3/uL (0.0-0.8); NEUTROPHILS # 4.9 10^3/uL (1.5-8.5); NEUTROPHILS % 69.2 % (36.0-66.0); PLATELET COUNT, AUTOMATED 198 10^3/uL (150-450); RED BLOOD COUNT 2.36 10^6/uL (4.30-6.10); WHITE BLOOD COUNT 7.1 10^3/uL (4.0-10.0)
[2022-04-10 19:40] LABS: CALCIUM LEVEL 9.4 MG/DL (8.3-10.6); CREATININE FOR GFR 2.12 MG/DL (0.70-1.30); GLOMERULAR FILTRATION RATE 31.7 (>35); POTASSIUM SERUM 4.6 MMOL/L (3.5-5.1)
== END ==
LOC: M LAB REF 17:03 → M LABDRWCV 17:03
PROVIDERS: ATTEND Nurse Practitioner Adult Health
DX: D64.9 Anemia, unspecified (principal); I25.10 Atherosclerotic heart disease of native coronary artery without angina pectoris; R53.83 Other fatigue

== ENCOUNTER → 2022-04-23 | Outpatient (REF) | payer MEDICARE, OTHER ==
[2022-04-23 18:38] LABS: CREATININE, URINE 112.7 MG/DL; MAU/CREAT RATIO 241.3 MCG/MG (0.0-30.0)
[2022-04-23 18:47] LABS: BASO % 0.5 % (0.0-1.0); EOS # 0.4 10^3/uL (0.0-0.5); EOS % 6.9 % (0.0-3.0); HEMATOCRIT 25.2 % (42.0-52.0); HEMOGLOBIN 7.6 g/dl (13.5-17.5); LYMPH # 1.1 10^3/uL (1.5-5.0); LYMPH % 17.9 % (24.0-44.0); MEAN CORPUSCULAR HEMOGLOBIN 30.5 pg (27.0-33.0); MEAN CORPUSCULAR HGB CONC 30.2 g/dl (32.0-36.5); MEAN CORPUSCULAR VOLUME 101.2 fl (80.0-96.0); MONO # 0.5 10^3/uL (0.0-0.8); MONO % 7.6 % (2.0-8.0); NEUTROPHILS # 4.1 10^3/uL (1.5-8.5); NEUTROPHILS % 66.6 % (36.0-66.0); PLATELET COUNT, AUTOMATED 236 10^3/uL (150-450); RED BLOOD COUNT 2.49 10^6/uL (4.30-6.10); WHITE BLOOD COUNT 6.1 10^3/uL (4.0-10.0)
[2022-04-23 19:00] LABS: POTASSIUM SERUM 4.5 MMOL/L (3.5-5.1)
[2022-04-23 19:01] LABS: ALBUMIN 3.6 G/DL (3.2-5.2)
[2022-04-23 19:05] LABS: CALCIUM LEVEL 8.9 MG/DL (8.3-10.6)
[2022-04-23 19:07] LABS: BILIRUBIN,TOTAL 0.5 MG/DL (0.3-1.2); CREATININE FOR GFR 1.91 MG/DL (0.70-1.30); GLOMERULAR FILTRATION RATE 35.7 (>35); PERCENT SATURATION 13.8 % (19.7-50.0)
[2022-04-23 19:08] LABS: CHOLESTEROL RISK RATIO 4.45 (<5); HDL CHOLESTEROL 33.9 MG/DL (>40); LDL CHOLESTEROL 89.7 MG/DL (<100); TOTAL PROTEIN 6.6 G/DL (5.7-8.2)
[2022-04-23 19:14] LABS: THYROID STIMULATING HORMONE 1.391 uIU/ML (0.55-4.78)
== END ==
LOC: M SFHCPLAZ 11:26
PROVIDERS: ATTEND Internal Medicine Hematology
DX: E11.21 Type 2 diabetes mellitus with diabetic nephropathy (principal)

== ENCOUNTER → 2022-04-24 | Outpatient (CLI) | payer MEDICARE, OTHER | LOC: M LAB 13:02 | PROVIDERS: ATTEND Internal Medicine Hematology | DX: E11.22 Type 2 diabetes mellitus with diabetic chronic kidney disease (principal) ==

== ENCOUNTER 2022-04-25 11:15 | Outpatient (CLI) | payer MEDICARE, OTHER ==
[~2022-04-25] VITALS: Ht 180.3 cm; Wt 88.2 kg
[2022-04-25 11:20] VITALS: BP 144/63
[2022-04-25 12:45] VITALS: BP 133/64
[2022-04-25 13:05] VITALS: BP 112/57
[2022-04-25 14:00] VITALS: BP 113/58
[2022-04-25 14:45] VITALS: BP 142/72
== END 2022-04-25 14:45 | disposition home or self-care (01) ==
LOC: M INFU 11:15
PROVIDERS: ATTEND Internal Medicine Hematology
DX: D64.9 Anemia, unspecified (principal)
CPT/HCPCS: 36430; 36592; 86850; 86900; 86901; 86920; P9016

== ENCOUNTER 2022-04-30 11:30 | Outpatient (CLI) | payer MEDICARE, OTHER ==
[~2022-04-30] VITALS: Ht 180.3 cm; Wt 88.2 kg
[2022-04-30 11:30] VITALS: BP 141/62
[~2022-04-30 11:30] MED LIST changes: +ALBUTEROL SULFATE 2.5MG/0.5ML INH NEB SOLN INH PRN; +EPINEPHrine INJ 1 MG/ML 1ML AMP IM PRN; +FERRIC CARBOXYMALTOSE INJ 750 MG in NS 250 ML (>50kg) IV ONE; +NS 1,000 ML IV SCH; +diphenhydrAMINE 50MG/ML VIAL IV PRN; +methylPREDNISolone 125MG 2ML VIAL IV PRN
[2022-04-30] MEDS ORDERED: FERRIC CARBOXYMALTOSE INJ 750 MG in NS 250 ML (>50kg) IV ONE ×3 (11:50)
[2022-04-30 12:30] VITALS: BP 138/68
[2022-04-30 13:40] VITALS: BP 125/56
== END 2022-04-30 13:40 | disposition home or self-care (01) ==
LOC: M INFU 11:30
PROVIDERS: ATTEND Internal Medicine Hematology
DX: D64.9 Anemia, unspecified (principal)
CPT/HCPCS: 83550; 96365; J1439

== ENCOUNTER → 2022-04-30 | Outpatient (REF) | payer MEDICARE, OTHER ==
[2022-04-30 18:58] LABS: PERCENT SATURATION 131.9 % (19.7-50.0)
== END ==
LOC: M LAB REF 16:49
PROVIDERS: ATTEND Internal Medicine Nephrology
DX: D50.9 Iron deficiency anemia, unspecified (principal)

== ENCOUNTER 2022-05-07 14:58 | Outpatient (CLI) | payer MEDICARE, OTHER ==
[~2022-05-07] VITALS: Ht 182.9 cm; Wt 90.8 kg
[2022-05-07 14:15] VITALS: BP 134/61
[~2022-05-07 14:58] MED LIST changes: -FERRIC CARBOXYMALTOSE INJ 750 MG in NS 250 ML (>50kg) IV ONE; -NS 1,000 ML IV SCH
[2022-05-07] MEDS ORDERED: FERRIC CARBOXYMALTOSE INJ 750 MG in NS 250 ML (>50kg) IV ONE ×3 (15:15)
[2022-05-07] MEDS ORDERED: NS 1,000 ML IV SCH (15:15)
[2022-05-07 15:45] VITALS: BP 127/59
== END 2022-05-07 15:45 | disposition home or self-care (01) ==
LOC: M INFU 14:58
PROVIDERS: ATTEND Internal Medicine Hematology
DX: D64.9 Anemia, unspecified (principal)
CPT/HCPCS: 96365; G0463; J1439

== ENCOUNTER → 2022-06-10 | Outpatient (CLI) | payer MEDICARE, OTHER ==
[~2022-06-10] MED LIST changes: -ALBUTEROL SULFATE 2.5MG/0.5ML INH NEB SOLN INH PRN; -EPINEPHrine INJ 1 MG/ML 1ML AMP IM PRN; -diphenhydrAMINE 50MG/ML VIAL IV PRN; -methylPREDNISolone 125MG 2ML VIAL IV PRN
== END ==
LOC: M PLARAD 14:06
PROVIDERS: ATTEND Internal Medicine Hematology
DX: C43.72 Malignant melanoma of left lower limb, including hip (principal)
CPT/HCPCS: 78816; A9552

== ENCOUNTER → 2022-06-17 | Outpatient (CLI) | payer MEDICARE, OTHER ==
[2022-06-17 13:42] LABS: BASO % 0.5 % (0.0-1.0); EOS # 0.3 10^3/uL (0.0-0.5); EOS % 4.6 % (0.0-3.0); HEMATOCRIT 32.8 % (42.0-52.0); HEMOGLOBIN 10.4 g/dl (13.5-17.5); LYMPH # 1.8 10^3/uL (1.5-5.0); MEAN CORPUSCULAR HEMOGLOBIN 31.4 pg (27.0-33.0); MEAN CORPUSCULAR HGB CONC 31.7 g/dl (32.0-36.5); MEAN CORPUSCULAR VOLUME 99.1 fl (80.0-96.0); MONO # 0.6 10^3/uL (0.0-0.8); MONO % 9.7 % (2.0-8.0); NEUTROPHILS # 3.6 10^3/uL (1.5-8.5); PLATELET COUNT, AUTOMATED 168 10^3/uL (150-450); RED BLOOD COUNT 3.31 10^6/uL (4.30-6.10); WHITE BLOOD COUNT 6.3 10^3/uL (4.0-10.0)
[2022-06-17 13:54] LABS: INR 0.95; PROTHROMBIN TIME 12.9 SECONDS (12.5-14.5)
[2022-06-17 13:55] LABS: PARTIAL THROMBOPLASTIN TIME 28.9 SECONDS (24.8-34.2)
[2022-06-17 14:12] LABS: MAGNESIUM LEVEL 2.2 MG/DL (1.8-2.4)
[2022-06-17 14:13] LABS: ALBUMIN 3.9 G/DL (3.2-5.2); BILIRUBIN,TOTAL 0.3 MG/DL (0.3-1.2); CALCIUM LEVEL 9.6 MG/DL (8.3-10.6); CREATININE FOR GFR 1.71 MG/DL (0.70-1.30); GLOMERULAR FILTRATION RATE 40.6 (>35); POTASSIUM SERUM 4.9 MMOL/L (3.5-5.1); TOTAL PROTEIN 7.1 G/DL (5.7-8.2)
== END ==
LOC: M PLALAB 11:44
PROVIDERS: ATTEND Family Medicine
DX: N18.32 Chronic kidney disease, stage 3b (principal); D50.9 Iron deficiency anemia, unspecified

== ENCOUNTER → 2022-07-18 | Outpatient (CLI) | payer MEDICARE, OTHER ==
[~2022-07-18] MED LIST changes: +ALBU2.5V10 INH; +ALBU8.5H PO; +BUDE10.2 INH; +CIDA500T2 PO; +COQ-100C5 PO; +FLON1SPR; +ICOS1CAP PO; +JARD1TAB PO; +LOSA50TA5 PO; +NORV5TAB PO; +ROSU10TA6 PO; +TRUL0.5I SC
== END ==
LOC: M LABSMTC 11:27
PROVIDERS: ATTEND Anesthesiology
DX: Z01.812 Encounter for preprocedural laboratory examination (principal); Z11.52 Encounter for screening for COVID-19

== ENCOUNTER 2022-07-23 08:19 | Day surgery (SDC) | payer MEDICARE, OTHER ==
[~2022-07-23] VITALS: Ht 180.3 cm; Wt 83.9 kg
[~2022-07-23 08:19] MED LIST changes: +NS 1,000 ML IV ONE
[2022-07-23] MEDS ORDERED: GLYCOPYRROLATE INJ 0.2 MG/ML 2 ML VIAL As Ordered ONE (09:09)
[2022-07-23] MEDS ORDERED: propofoL 200 MG/20 ML VIAL As Ordered ONE ×2 (09:09→09:18)
[2022-07-23] MEDS ORDERED: LIDOCAINE 2% 100MG/5ML SDV (FOR ANES.) As Ordered ONE (09:09)
[2022-07-23 09:55] VITALS: BP 134/72
== END 2022-07-23 10:07 | disposition home or self-care (01) ==
LOC: M OPP 08:19
PROVIDERS: ATTEND Internal Medicine Gastroenterology
DX: K64.8 Other hemorrhoids (principal); K44.9 Diaphragmatic hernia without obstruction or gangrene; D50.9 Iron deficiency anemia, unspecified; Z80.0 Family history of malignant neoplasm of digestive organs; I25.2 Old myocardial infarction; E11.9 Type 2 diabetes mellitus without complications; G47.33 Obstructive sleep apnea (adult) (pediatric); I25.810 Atherosclerosis of coronary artery bypass graft(s) without angina pectoris; E78.00 Pure hypercholesterolemia, unspecified; G43.909 Migraine, unspecified, not intractable, without status migrainosus; I51.9 Heart disease, unspecified; Z79.02 Long term (current) use of antithrombotics/antiplatelets; Z79.51 Long term (current) use of inhaled steroids; Z79.82 Long term (current) use of aspirin; Z79.84 Long term (current) use of oral hypoglycemic drugs; Z79.899 Other long term (current) drug therapy; Z91.018 Allergy to other foods; Z99.89 Dependence on other enabling machines and devices; Z87.891 Personal history of nicotine dependence

== ENCOUNTER → 2022-07-29 | Outpatient (CLI) | payer MEDICARE, OTHER ==
[~2022-07-29] MED LIST changes: -NS 1,000 ML IV ONE
[2022-07-29 17:43] LABS: HEMATOCRIT 32.7 % (42.0-52.0); HEMOGLOBIN 10.4 g/dl (13.5-17.5); MEAN CORPUSCULAR HEMOGLOBIN 31.3 pg (27.0-33.0); MEAN CORPUSCULAR HGB CONC 31.8 g/dl (32.0-36.5); MEAN CORPUSCULAR VOLUME 98.5 fl (80.0-96.0); PLATELET COUNT, AUTOMATED 182 10^3/uL (150-450); RED BLOOD COUNT 3.32 10^6/uL (4.30-6.10); WHITE BLOOD COUNT 7.7 10^3/uL (4.0-10.0)
[2022-07-29 18:08] LABS: HEMOGLOBIN A1c 7.3 % (4.0-6.0)
[2022-07-29 18:11] LABS: ALBUMIN 3.6 G/DL (3.2-5.2); BILIRUBIN,TOTAL 0.4 MG/DL (0.3-1.2); CALCIUM LEVEL 9.3 MG/DL (8.3-10.6); CHOLESTEROL RISK RATIO 4.04 (<5); CREATININE FOR GFR 1.55 MG/DL (0.70-1.30); FERRITIN 568.7 NG/ML (10.5-307.3); GLOMERULAR FILTRATION RATE 45.5 (>35); HDL CHOLESTEROL 41.5 MG/DL (>40); LDL CHOLESTEROL 91.5 MG/DL (<100); PERCENT SATURATION 17.9 % (19.7-50.0); POTASSIUM SERUM 4.2 MMOL/L (3.5-5.1); THYROID STIMULATING HORMONE 1.467 uIU/ML (0.55-4.78); TOTAL 25(OH) VITAMIN D 15.3 NG/ML (20.0-100.0)
[2022-07-29 18:12] LABS: FOLATE 9.41 NG/ML (>5.4)
[2022-07-29 18:38] LABS: CREATININE, URINE 87.3 MG/DL
[2022-07-29 18:52] LABS: MAU/CREAT RATIO 487.9 MCG/MG (0.0-30.0)
== END ==
LOC: M PLALAB 14:47
PROVIDERS: ATTEND Internal Medicine Hematology
DX: N40.1 Benign prostatic hyperplasia with lower urinary tract symptoms (principal); E78.00 Pure hypercholesterolemia, unspecified; E11.21 Type 2 diabetes mellitus with diabetic nephropathy; Z79.899 Other long term (current) drug therapy

== ENCOUNTER 2022-08-08 09:10 | Outpatient (CLI) | payer MEDICARE, OTHER ==
[~2022-08-08] VITALS: Ht 182.9 cm; Wt 84.0 kg
[~2022-08-08 09:10] MED LIST changes: +ALBUTEROL SULFATE 2.5MG/0.5ML INH NEB SOLN INH PRN; +EPINEPHrine INJ 1 MG/ML 1ML AMP IM PRN; +diphenhydrAMINE 50MG/ML VIAL IV PRN; +methylPREDNISolone 125MG 2ML VIAL IV PRN
[2022-08-08 09:15] VITALS: BP 138/65
[2022-08-08] MEDS ORDERED: FERRIC CARBOXYMALTOSE INJ 750 MG in NS 250 ML (>50kg) IV ONE ×3 (09:30)
[2022-08-08] MEDS ORDERED: NS 1,000 ML IV SCH (09:30)
[2022-08-08 10:50] VITALS: BP 129/61
== END 2022-08-08 10:50 | disposition home or self-care (01) ==
LOC: M INFU 09:10
PROVIDERS: ATTEND Internal Medicine Hematology
DX: D50.9 Iron deficiency anemia, unspecified (principal); Z91.010 Allergy to peanuts
CPT/HCPCS: 96365; J1439

== ENCOUNTER → 2022-09-17 | Outpatient (CLI) | payer MEDICARE, OTHER ==
[~2022-09-17] MED LIST changes: -ALBUTEROL SULFATE 2.5MG/0.5ML INH NEB SOLN INH PRN; +E-Z-PAQUE 96% w/w SUSP 176GM BTL As Ordered ONE; -EPINEPHrine INJ 1 MG/ML 1ML AMP IM PRN; -diphenhydrAMINE 50MG/ML VIAL IV PRN; -methylPREDNISolone 125MG 2ML VIAL IV PRN
== END ==
LOC: M RAD 10:17
PROVIDERS: ATTEND Physician Assistant Medical
DX: D50.9 Iron deficiency anemia, unspecified (principal)

== ENCOUNTER → 2022-10-01 | Outpatient (CLI) | payer MEDICARE, OTHER ==
[~2022-10-01] MED LIST changes: -E-Z-PAQUE 96% w/w SUSP 176GM BTL As Ordered ONE
[2022-10-01 15:04] LABS: HEMATOCRIT 30.4 % (42.0-52.0); HEMOGLOBIN 9.6 g/dl (13.5-17.5); MEAN CORPUSCULAR HEMOGLOBIN 32.3 pg (27.0-33.0); MEAN CORPUSCULAR HGB CONC 31.6 g/dl (32.0-36.5); MEAN CORPUSCULAR VOLUME 102.4 fl (80.0-96.0); PLATELET COUNT, AUTOMATED 157 10^3/uL (150-450); RED BLOOD COUNT 2.97 10^6/uL (4.30-6.10); WHITE BLOOD COUNT 6.7 10^3/uL (4.0-10.0)
[2022-10-01 15:34] LABS: FERRITIN 613.8 NG/ML (10.5-307.3); PERCENT SATURATION 23.9 % (19.7-50.0)
== END ==
LOC: M PLALAB 10:49
PROVIDERS: ATTEND Internal Medicine Hematology
DX: D64.9 Anemia, unspecified (principal)

== ENCOUNTER → 2022-12-04 | Outpatient (REF) | payer MEDICARE, OTHER ==
[~2022-12-04] MED LIST changes: -ROSU20TA5 PO; +ROSU20TA61 PO
[2022-12-04 17:40] LABS: CREATININE FOR GFR 1.74 MG/DL (0.70-1.30); GLOMERULAR FILTRATION RATE 39.8 (>35); POTASSIUM SERUM 4.4 MMOL/L (3.5-5.1)
== END ==
LOC: M SFHCCAPE 07:24
PROVIDERS: ATTEND Physician Assistant
DX: Z87.898 Personal history of other specified conditions (principal); Z12.5 Encounter for screening for malignant neoplasm of prostate; E11.9 Type 2 diabetes mellitus without complications
CPT/HCPCS: 80048; 83036; G0103

== ENCOUNTER → 2023-02-04 | Outpatient (CLI) | payer MEDICARE, OTHER | LOC: M PLAIMG 13:10 | PROVIDERS: ATTEND Physician Assistant Medical | DX: R93.3 Abnormal findings on diagnostic imaging of other parts of digestive tract (principal) ==

== ENCOUNTER → 2023-04-14 | Outpatient (CLI) | payer MEDICARE, OTHER ==
[2023-04-14 14:42] LABS: HEMATOCRIT 32.7 % (42.0-52.0); HEMOGLOBIN 10.5 g/dl (13.5-17.5); MEAN CORPUSCULAR HEMOGLOBIN 32.1 pg (27.0-33.0); MEAN CORPUSCULAR HGB CONC 32.1 g/dl (32.0-36.5); PLATELET COUNT, AUTOMATED 170 10^3/uL (150-450); RED BLOOD COUNT 3.27 10^6/uL (4.30-6.10); WHITE BLOOD COUNT 6.7 10^3/uL (4.0-10.0)
[2023-04-14 14:57] LABS: HEMOGLOBIN A1c 6.2 % (4.0-6.0)
[2023-04-14 15:03] LABS: CREATININE, URINE 112.1 MG/DL
[2023-04-14 15:04] LABS: MAU/CREAT RATIO 160.5 MCG/MG (0.0-30.0)
[2023-04-14 15:05] LABS: C REACTIVE PROTEIN QUANTITATIV < 0.40 MG/DL (<1.0)
[2023-04-14 15:10] LABS: ALBUMIN 3.9 G/DL (3.2-5.2); ALKALINE PHOSPHATASE 67 U/L (46-116); ALT/SGPT 24 U/L (7.0-40); AST/SGOT 34 U/L (<34); BILIRUBIN,TOTAL 0.4 MG/DL (0.3-1.2); BLOOD UREA NITROGEN 31 MG/DL (9-23); CALCIUM LEVEL 9.1 MG/DL (8.3-10.6); CARBON DIOXIDE LEVEL 29 MMOL/L (20-31); CHLORIDE LEVEL 104 MMOL/L (98-107); CHOLESTEROL LEVEL 182 MG/DL (<200); CHOLESTEROL RISK RATIO 4.46 (<5); FREE T4 1.12 NG/DL (0.89-1.76); GLOMERULAR FILTRATION RATE 35.9 (>35); GLUCOSE, FASTING 123 MG/DL (74-106); HDL CHOLESTEROL 40.8 MG/DL (>40); NON-HDL-C 141.2 MG/DL; POTASSIUM SERUM 4.7 MMOL/L (3.5-5.1); SODIUM LEVEL 140 MMOL/L (136-145); THYROID STIMULATING HORMONE 1.572 uIU/ML (0.55-4.78); TOTAL 25(OH) VITAMIN D 57.9 NG/ML (20.0-100.0); TRIGLYCERIDES LEVEL 176 MG/DL (<150)
[2023-04-14 15:12] LABS: VITAMIN B12 LEVEL > 2000 PG/ML (211-911)
== END ==
LOC: M PLALAB 11:11
PROVIDERS: ATTEND Internal Medicine Hematology
DX: E11.21 Type 2 diabetes mellitus with diabetic nephropathy (principal); Z79.899 Other long term (current) drug therapy

== ENCOUNTER → 2023-04-14 | Outpatient (CLI) | payer MEDICARE, OTHER | LOC: M PLAIMG 10:02 | PROVIDERS: ATTEND Internal Medicine Pulmonary Disease | DX: R91.8 Other nonspecific abnormal finding of lung field (principal); J91.8 Pleural effusion in other conditions classified elsewhere ==

== ENCOUNTER → 2023-04-24 | Outpatient (REF) | payer MEDICARE, OTHER | LOC: M SFHCCAPE 07:53 | PROVIDERS: ATTEND Physician Assistant | DX: R97.20 Elevated prostate specific antigen [PSA] (principal) ==

== ENCOUNTER → 2023-07-17 | Outpatient (CLI) | payer MEDICARE, OTHER | LOC: M PLAIMG 14:40 | PROVIDERS: ATTEND Physician Assistant Medical | DX: R05.3 Chronic cough (principal) ==

== ENCOUNTER → 2023-07-21 | Outpatient (REF) | payer MEDICARE, OTHER | LOC: M SFHCCAPE 10:53 | PROVIDERS: ATTEND Physician Assistant Medical | DX: R30.0 Dysuria (principal) ==

== ENCOUNTER → 2023-07-29 | Outpatient (CLI) | payer MEDICARE, OTHER ==
[2023-07-29 17:50] LABS: ALBUMIN 3.6 G/DL (3.2-5.2); BILIRUBIN,TOTAL 0.6 MG/DL (0.3-1.2); CALCIUM LEVEL 9.4 MG/DL (8.3-10.6); CREATININE FOR GFR 2.37 MG/DL (0.70-1.30); GLOMERULAR FILTRATION RATE 27.8 (>35); POTASSIUM SERUM 4.6 MMOL/L (3.5-5.1); TOTAL PROTEIN 6.8 G/DL (5.7-8.2)
== END ==
LOC: M PLALAB 14:48
PROVIDERS: ATTEND Physician Assistant Medical
DX: R06.09 Other forms of dyspnea (principal); I50.42 Chronic combined systolic (congestive) and diastolic (congestive) heart failure

== ENCOUNTER → 2023-07-31 | Outpatient (REF) | payer MEDICARE, OTHER ==
[2023-07-31 18:43] LABS: CREATININE FOR GFR 2.28 MG/DL (0.70-1.30); GLOMERULAR FILTRATION RATE 29.1 (>35); POTASSIUM SERUM 4.7 MMOL/L (3.5-5.1)
== END ==
LOC: M SFHCCAPE 14:02
PROVIDERS: ATTEND Physician Assistant Medical
DX: B37.41 Candidal cystitis and urethritis (principal); R06.09 Other forms of dyspnea; I50.42 Chronic combined systolic (congestive) and diastolic (congestive) heart failure; Z79.899 Other long term (current) drug therapy

== ENCOUNTER → 2023-08-04 | Outpatient (REF) | payer MEDICARE, OTHER ==
[2023-08-04 18:27] LABS: ALBUMIN 3.3 G/DL (3.2-5.2); BILIRUBIN,TOTAL 0.3 MG/DL (0.3-1.2); CREATININE FOR GFR 2.27 MG/DL (0.70-1.30); GLOMERULAR FILTRATION RATE 29.2 (>35); POTASSIUM SERUM 4.4 MMOL/L (3.5-5.1); TOTAL PROTEIN 6.6 G/DL (5.7-8.2)
== END ==
LOC: M SFHCCAPE 13:41
PROVIDERS: ATTEND Physician Assistant Medical
DX: I50.42 Chronic combined systolic (congestive) and diastolic (congestive) heart failure (principal)

== ENCOUNTER → 2023-08-14 | Outpatient (CLI) | payer MEDICARE, OTHER ==
[2023-08-14 16:02] LABS: BASO % 0.3 % (0.0-1.0); EOS # 0.2 10^3/uL (0.0-0.5); EOS % 2.4 % (0.0-3.0); HEMATOCRIT 25.7 % (42.0-52.0); HEMOGLOBIN 8.1 g/dl (13.5-17.5); LYMPH % 12.2 % (24.0-44.0); MEAN CORPUSCULAR HEMOGLOBIN 31.4 pg (27.0-33.0); MEAN CORPUSCULAR HGB CONC 31.5 g/dl (32.0-36.5); MEAN CORPUSCULAR VOLUME 99.6 fl (80.0-96.0); MONO # 0.6 10^3/uL (0.0-0.8); MONO % 7.6 % (2.0-8.0); NEUTROPHILS # 6.1 10^3/uL (1.5-8.5); NEUTROPHILS % 77.1 % (36.0-66.0); PLATELET COUNT, AUTOMATED 221 10^3/uL (150-450); RED BLOOD COUNT 2.58 10^6/uL (4.30-6.10); WHITE BLOOD COUNT 7.9 10^3/uL (4.0-10.0)
[2023-08-14 16:26] LABS: C REACTIVE PROTEIN QUANTITATIV 8.6 MG/DL (<1.0)
== END ==
LOC: M PLALAB 13:33
PROVIDERS: ATTEND Internal Medicine Hematology
DX: J90 Pleural effusion, not elsewhere classified (principal); R91.8 Other nonspecific abnormal finding of lung field; I25.10 Atherosclerotic heart disease of native coronary artery without angina pectoris; J45.909 Unspecified asthma, uncomplicated; R06.02 Shortness of breath

== ENCOUNTER 2023-08-15 08:15 | Outpatient (CLI) | payer MEDICARE, OTHER ==
[~2023-08-15] VITALS: Ht 180.3 cm; Wt 84.1 kg
[2023-08-15 08:35] VITALS: BP 133/62; O2SAT 93
== END 2023-08-15 13:10 ==
LOC: M INFU 08:15
PROVIDERS: ATTEND Internal Medicine Hematology
DX: D64.9 Anemia, unspecified (principal)

== ENCOUNTER 2023-08-16 11:15 | Outpatient (CLI) | payer MEDICARE, OTHER ==
[~2023-08-16] VITALS: Ht 180.3 cm; Wt 83.6 kg
[2023-08-16 11:47] VITALS: BP 120/61; TEMP 98.1; O2SAT 98
[2023-08-16 12:45] VITALS: BP 120/61; TEMP 98.7; O2SAT 98
[2023-08-16 13:00] VITALS: BP 107/55; TEMP 98.6; O2SAT 93
[2023-08-16 13:45] VITALS: BP 107/54; TEMP 98.6; O2SAT 96
[2023-08-16 14:27] VITALS: BP 106/53; TEMP 98.6; O2SAT 92
[2023-08-16 15:23] VITALS: BP 107/52; TEMP 98.4; O2SAT 93
== END 2023-08-16 15:38 | disposition home or self-care (01) ==
LOC: M OPCLI4PV 11:15 → M MSPAV 11:20 → M OPCLI4PV 15:38
PROVIDERS: ATTEND Internal Medicine Hematology
DX: D64.9 Anemia, unspecified (principal)
CPT/HCPCS: 36430; P9016

== ENCOUNTER → 2023-08-20 | Outpatient (CLI) | payer MEDICARE, OTHER ==
[2023-08-20 15:25] LABS: BASO % 0.4 % (0.0-1.0); EOS # 0.7 10^3/uL (0.0-0.5); EOS % 8.8 % (0.0-3.0); HEMATOCRIT 28.3 % (42.0-52.0); HEMOGLOBIN 8.9 g/dl (13.5-17.5); LYMPH # 1.3 10^3/uL (1.5-5.0); LYMPH % 14.8 % (24.0-44.0); MEAN CORPUSCULAR HEMOGLOBIN 30.6 pg (27.0-33.0); MEAN CORPUSCULAR HGB CONC 31.4 g/dl (32.0-36.5); MEAN CORPUSCULAR VOLUME 97.3 fl (80.0-96.0); MONO # 0.7 10^3/uL (0.0-0.8); MONO % 8.5 % (2.0-8.0); NEUTROPHILS # 5.7 10^3/uL (1.5-8.5); NEUTROPHILS % 67.1 % (36.0-66.0); PLATELET COUNT, AUTOMATED 207 10^3/uL (150-450); RED BLOOD COUNT 2.91 10^6/uL (4.30-6.10); WHITE BLOOD COUNT 8.5 10^3/uL (4.0-10.0)
== END ==
LOC: M PLALAB 12:40
PROVIDERS: ATTEND Internal Medicine Hematology
DX: D64.9 Anemia, unspecified (principal)

== ENCOUNTER → 2023-08-27 | Outpatient (CLI) | payer MEDICARE, OTHER ==
[2023-08-27 14:22] LABS: BASO % 0.3 % (0.0-1.0); EOS # 0.5 10^3/uL (0.0-0.5); EOS % 6.7 % (0.0-3.0); HEMATOCRIT 26.7 % (42.0-52.0); HEMOGLOBIN 8.2 g/dl (13.5-17.5); LYMPH # 1.3 10^3/uL (1.5-5.0); LYMPH % 19.3 % (24.0-44.0); MEAN CORPUSCULAR HEMOGLOBIN 30.3 pg (27.0-33.0); MEAN CORPUSCULAR HGB CONC 30.7 g/dl (32.0-36.5); MEAN CORPUSCULAR VOLUME 98.5 fl (80.0-96.0); MONO # 0.6 10^3/uL (0.0-0.8); MONO % 8.8 % (2.0-8.0); NEUTROPHILS # 4.3 10^3/uL (1.5-8.5); NEUTROPHILS % 64.5 % (36.0-66.0); PLATELET COUNT, AUTOMATED 202 10^3/uL (150-450); RED BLOOD COUNT 2.71 10^6/uL (4.30-6.10); WHITE BLOOD COUNT 6.7 10^3/uL (4.0-10.0)
[2023-08-27 14:51] LABS: CALCIUM LEVEL 9.1 MG/DL (8.3-10.6); CREATININE FOR GFR 2.15 MG/DL (0.70-1.30); GLOMERULAR FILTRATION RATE 31.1 (>35); POTASSIUM SERUM 5.2 MMOL/L (3.5-5.1)
== END ==
LOC: M PLALAB 10:23
PROVIDERS: ATTEND Internal Medicine Hematology
DX: N18.32 Chronic kidney disease, stage 3b (principal)

== ENCOUNTER → 2023-09-03 | Outpatient (CLI) | payer MEDICARE, OTHER ==
[2023-09-03 17:56] LABS: BASO % 0.5 % (0.0-1.0); EOS # 0.6 10^3/uL (0.0-0.5); HEMATOCRIT 27.2 % (42.0-52.0); HEMOGLOBIN 8.5 g/dl (13.5-17.5); LYMPH # 1.8 10^3/uL (1.5-5.0); MEAN CORPUSCULAR HEMOGLOBIN 30.2 pg (27.0-33.0); MEAN CORPUSCULAR HGB CONC 31.3 g/dl (32.0-36.5); MEAN CORPUSCULAR VOLUME 96.8 fl (80.0-96.0); MONO # 0.6 10^3/uL (0.0-0.8); MONO % 9.4 % (2.0-8.0); NEUTROPHILS # 3.3 10^3/uL (1.5-8.5); NEUTROPHILS % 51.9 % (36.0-66.0); PLATELET COUNT, AUTOMATED 172 10^3/uL (150-450); RED BLOOD COUNT 2.81 10^6/uL (4.30-6.10); WHITE BLOOD COUNT 6.3 10^3/uL (4.0-10.0)
[2023-09-03 18:12] LABS: ALBUMIN 3.5 G/DL (3.2-5.2); CALCIUM LEVEL 9.6 MG/DL (8.3-10.6); CREATININE FOR GFR 1.85 MG/DL (0.70-1.30); PHOSPHORUS LEVEL 3.9 MG/DL (2.4-5.1); POTASSIUM SERUM 4.6 MMOL/L (3.5-5.1)
[2023-09-03 18:17] LABS: FERRITIN 513.8 NG/ML (10.5-307.3)
== END ==
LOC: M PLALAB 14:39
PROVIDERS: ATTEND Internal Medicine Hematology
DX: D64.9 Anemia, unspecified (principal)

== ENCOUNTER → 2023-09-10 | Outpatient (CLI) | payer MEDICARE, OTHER | LOC: M PLAIMG 10:33 | PROVIDERS: ATTEND Internal Medicine Hematology | DX: I25.10 Atherosclerotic heart disease of native coronary artery without angina pectoris (principal) ==

== ENCOUNTER 2023-09-19 12:57 | Outpatient (CLI) | payer MEDICARE, OTHER ==
[~2023-09-19 12:57] MED LIST changes: +ALBUTEROL SULFATE 2.5MG/0.5ML INH NEB SOLN INH PRN; +EPINEPHrine INJ 1 MG/ML 1ML AMP IM PRN; +NS 1,000 ML IV SCH; +diphenhydrAMINE 50MG/ML VIAL IV PRN; +methylPREDNISolone 125MG 2ML VIAL IV PRN
[2023-09-19 13:14] VITALS: BP 120/57; O2SAT 99
[2023-09-19] MEDS: IRON SUCROSE 200 MG in NS 100 ML IV ONE (13:24)
[2023-09-19 14:45] VITALS: BP 124/60; O2SAT 97
== END 2023-09-19 14:45 ==
LOC: M INFU 12:57
PROVIDERS: ATTEND Internal Medicine Hematology
DX: D64.9 Anemia, unspecified (principal)
CPT/HCPCS: 96365; J1756

== ENCOUNTER 2023-09-26 13:00 | Outpatient (CLI) | payer MEDICARE, OTHER ==
[~2023-09-26] VITALS: Ht 180.3 cm; Wt 83.9 kg
[~2023-09-26 13:00] MED LIST changes: -ROSU10TA6 PO; +ROSU10TA61 PO
[2023-09-26 13:15] VITALS: BP 122/57; O2SAT 96
[2023-09-26] MEDS: IRON SUCROSE 200 MG in NS 100 ML IV ONE (13:19)
[2023-09-26 14:10] VITALS: BP 99/55; O2SAT 94
== END 2023-09-26 14:30 ==
LOC: M INFU 13:00
PROVIDERS: ATTEND Internal Medicine Hematology
DX: D64.9 Anemia, unspecified (principal)
CPT/HCPCS: 96365; J1756

== ENCOUNTER → 2023-10-01 | Outpatient (REF) | payer MEDICARE, OTHER ==
[~2023-10-01] MED LIST changes: -ALBUTEROL SULFATE 2.5MG/0.5ML INH NEB SOLN INH PRN; -EPINEPHrine INJ 1 MG/ML 1ML AMP IM PRN; -NS 1,000 ML IV SCH; -diphenhydrAMINE 50MG/ML VIAL IV PRN; -methylPREDNISolone 125MG 2ML VIAL IV PRN
[2023-10-01 17:32] LABS: BASO % 0.4 % (0.0-1.0); EOS # 0.3 10^3/uL (0.0-0.5); EOS % 4.4 % (0.0-3.0); HEMOGLOBIN 8.1 g/dl (13.5-17.5); LYMPH # 1.2 10^3/uL (1.5-5.0); LYMPH % 17.1 % (24.0-44.0); MEAN CORPUSCULAR HEMOGLOBIN 30.5 pg (27.0-33.0); MEAN CORPUSCULAR HGB CONC 31.2 g/dl (32.0-36.5); MEAN CORPUSCULAR VOLUME 97.7 fl (80.0-96.0); MONO # 0.7 10^3/uL (0.0-0.8); NEUTROPHILS # 4.6 10^3/uL (1.5-8.5); NEUTROPHILS % 67.7 % (36.0-66.0); PLATELET COUNT, AUTOMATED 176 10^3/uL (150-450); RED BLOOD COUNT 2.66 10^6/uL (4.30-6.10); WHITE BLOOD COUNT 6.8 10^3/uL (4.0-10.0)
[2023-10-01 17:56] LABS: CREATININE FOR GFR 2.24 MG/DL (0.70-1.30); GLOMERULAR FILTRATION RATE 29.7 (>35); POTASSIUM SERUM 4.8 MMOL/L (3.5-5.1)
== END ==
LOC: M SFHCCLAY 14:10
PROVIDERS: ATTEND Physician Assistant Medical
DX: R05.3 Chronic cough (principal); D50.9 Iron deficiency anemia, unspecified

== ENCOUNTER → 2023-10-01 | Outpatient (CLI) | payer MEDICARE, OTHER | LOC: M CLY 14:22 | PROVIDERS: ATTEND Physician Assistant Medical | DX: J18.9 Pneumonia, unspecified organism (principal) ==

== ENCOUNTER 2023-10-03 13:05 | Outpatient (CLI) | payer MEDICARE, OTHER ==
[~2023-10-03] VITALS: Ht 180.3 cm; Wt 83.9 kg
[2023-10-03 13:05] VITALS: BP 115/56; O2SAT 94
[~2023-10-03 13:05] MED LIST changes: +ALBUTEROL SULFATE 2.5MG/0.5ML INH NEB SOLN INH PRN; +EPINEPHrine INJ 1 MG/ML 1ML AMP IM PRN; +NS 1,000 ML IV SCH; +diphenhydrAMINE 50MG/ML VIAL IV PRN; +methylPREDNISolone 125MG 2ML VIAL IV PRN
[2023-10-03] MEDS: IRON SUCROSE 200 MG in NS 100 ML IV ONE (14:14)
[2023-10-03 15:17] VITALS: BP 124/63; O2SAT 96
== END 2023-10-03 15:20 | disposition home or self-care (01) ==
LOC: M INFU 13:05
PROVIDERS: ATTEND Internal Medicine Hematology
DX: D64.9 Anemia, unspecified (principal); Z91.018 Allergy to other foods; I12.9 Hypertensive chronic kidney disease with stage 1 through stage 4 chronic kidney disease, or unspecified chronic kidney disease
CPT/HCPCS: 96365; J1756

== ENCOUNTER → 2023-10-09 | Outpatient (CLI) | payer MEDICARE, OTHER ==
[~2023-10-09] MED LIST changes: -ALBUTEROL SULFATE 2.5MG/0.5ML INH NEB SOLN INH PRN; -EPINEPHrine INJ 1 MG/ML 1ML AMP IM PRN; -NS 1,000 ML IV SCH; -diphenhydrAMINE 50MG/ML VIAL IV PRN; -methylPREDNISolone 125MG 2ML VIAL IV PRN
[2023-10-09 16:19] LABS: BASO % 0.4 % (0.0-1.0); EOS # 0.2 10^3/uL (0.0-0.5); HEMATOCRIT 26.6 % (42.0-52.0); LYMPH # 1.3 10^3/uL (1.5-5.0); LYMPH % 18.8 % (24.0-44.0); MEAN CORPUSCULAR HEMOGLOBIN 29.1 pg (27.0-33.0); MEAN CORPUSCULAR HGB CONC 30.1 g/dl (32.0-36.5); MEAN CORPUSCULAR VOLUME 96.7 fl (80.0-96.0); MONO # 0.7 10^3/uL (0.0-0.8); MONO % 9.2 % (2.0-8.0); NEUTROPHILS # 4.8 10^3/uL (1.5-8.5); NEUTROPHILS % 68.2 % (36.0-66.0); PLATELET COUNT, AUTOMATED 183 10^3/uL (150-450); RED BLOOD COUNT 2.75 10^6/uL (4.30-6.10); WHITE BLOOD COUNT 7.1 10^3/uL (4.0-10.0)
== END ==
LOC: M PLALAB 12:52
PROVIDERS: ATTEND Internal Medicine Hematology
DX: D64.9 Anemia, unspecified (principal)

== ENCOUNTER 2023-10-17 11:45 | Outpatient (CLI) | payer MEDICARE, OTHER ==
[~2023-10-17] VITALS: Ht 180.3 cm; Wt 84.5 kg
[2023-10-17 11:40] VITALS: BP 115/57; O2SAT 96
[~2023-10-17 11:45] MED LIST changes: +ALBUTEROL SULFATE 2.5MG/0.5ML INH NEB SOLN INH PRN; +EPINEPHrine INJ 1 MG/ML 1ML AMP IM PRN; +NS 1,000 ML IV SCH; +diphenhydrAMINE 50MG/ML VIAL IV PRN; +methylPREDNISolone 125MG 2ML VIAL IV PRN
[2023-10-17] MEDS: IRON SUCROSE 200 MG in NS 100 ML IV ONE (11:57)
[2023-10-17 13:00] VITALS: BP 118/64; O2SAT 96
== END 2023-10-17 13:00 | disposition home or self-care (01) ==
LOC: M INFU 11:45
PROVIDERS: ATTEND Internal Medicine Hematology
DX: D50.9 Iron deficiency anemia, unspecified (principal)
CPT/HCPCS: 96365; J1756

== ENCOUNTER 2023-10-24 15:30 | Outpatient (CLI) | payer MEDICARE, OTHER ==
[~2023-10-24] VITALS: Ht 180.3 cm; Wt 84.0 kg
[2023-10-24 15:30] VITALS: BP 123/58; O2SAT 95
[2023-10-24] MEDS: IRON SUCROSE 200 MG in NS 100 ML IV ONE (15:46)
[2023-10-24 17:00] VITALS: BP 122/58; O2SAT 97
== END 2023-10-24 17:00 | disposition home or self-care (01) ==
LOC: M INFU 15:30
PROVIDERS: ATTEND Internal Medicine Hematology
DX: D50.9 Iron deficiency anemia, unspecified (principal); Z91.018 Allergy to other foods
CPT/HCPCS: 96365; J1756

== ENCOUNTER → 2023-10-27 | Outpatient (CLI) | payer MEDICARE, OTHER ==
[~2023-10-27] MED LIST changes: -ALBUTEROL SULFATE 2.5MG/0.5ML INH NEB SOLN INH PRN; -EPINEPHrine INJ 1 MG/ML 1ML AMP IM PRN; -NS 1,000 ML IV SCH; -diphenhydrAMINE 50MG/ML VIAL IV PRN; -methylPREDNISolone 125MG 2ML VIAL IV PRN
[2023-10-27 16:01] LABS: PROSTATIC SPECIFIC AG MONITOR 7.11 NG/ML (< 4.00)
== END ==
LOC: M PLALAB 13:16
PROVIDERS: ATTEND Physician Assistant
DX: R97.20 Elevated prostate specific antigen [PSA] (principal); D64.9 Anemia, unspecified; R05.3 Chronic cough; I50.42 Chronic combined systolic (congestive) and diastolic (congestive) heart failure

== ENCOUNTER → 2023-10-27 | Outpatient (CLI) | payer MEDICARE, OTHER | LOC: M PLALAB 13:18 | PROVIDERS: ATTEND Physician Assistant Medical | DX: R05.3 Chronic cough (principal); I50.42 Chronic combined systolic (congestive) and diastolic (congestive) heart failure ==

== ENCOUNTER 2023-10-31 12:30 | Outpatient (CLI) | payer MEDICARE, OTHER ==
[~2023-10-31 12:30] MED LIST changes: +ALBUTEROL SULFATE 2.5MG/0.5ML INH NEB SOLN INH PRN; +EPINEPHrine INJ 1 MG/ML 1ML AMP IM PRN; +NS 1,000 ML IV SCH; +diphenhydrAMINE 50MG/ML VIAL IV PRN; +methylPREDNISolone 125MG 2ML VIAL IV PRN
[2023-10-31] MEDS: IRON SUCROSE 200 MG in NS 100 ML IV ONE (13:11)
== END 2023-10-31 13:00 ==
LOC: M INFU 12:30
PROVIDERS: ATTEND Internal Medicine Hematology
DX: Z53.9 Procedure and treatment not carried out, unspecified reason (principal)

== ENCOUNTER → 2023-11-24 | Outpatient (REF) | payer MEDICARE, OTHER ==
[~2023-11-24] MED LIST changes: -ALBUTEROL SULFATE 2.5MG/0.5ML INH NEB SOLN INH PRN; -EPINEPHrine INJ 1 MG/ML 1ML AMP IM PRN; -NS 1,000 ML IV SCH; -diphenhydrAMINE 50MG/ML VIAL IV PRN; -methylPREDNISolone 125MG 2ML VIAL IV PRN
[2023-11-24 19:19] LABS: PERCENT SATURATION 27.8 % (19.7-50.0)
== END ==
LOC: M LAB REF 17:14
PROVIDERS: ATTEND Internal Medicine Nephrology
DX: D50.9 Iron deficiency anemia, unspecified (principal)

== ENCOUNTER → 2023-12-01 | Outpatient (CLI) | payer MEDICARE, OTHER ==
[~2023-12-01] MED LIST changes: +SYMB16INH
[2023-12-01 17:36] LABS: ALBUMIN 3.7 G/DL (3.2-5.2); ALKALINE PHOSPHATASE 80 U/L (46-116); ALT/SGPT 35 U/L (7.0-40); AST/SGOT 32 U/L (<34); BILIRUBIN,TOTAL 0.7 MG/DL (0.3-1.2); BLOOD UREA NITROGEN 53 MG/DL (9-23); CALCIUM LEVEL 8.7 MG/DL (8.3-10.6); CARBON DIOXIDE LEVEL 26 MMOL/L (20-31); CHLORIDE LEVEL 104 MMOL/L (98-107); CHOLESTEROL LEVEL 153 MG/DL (<200); CHOLESTEROL RISK RATIO 3.91 (<5); CREATININE FOR GFR 2.46 MG/DL (0.70-1.30); GLOMERULAR FILTRATION RATE 26.6 (>35); GLUCOSE, FASTING 259 MG/DL (74-106); HDL CHOLESTEROL 39.1 MG/DL (>40); IRON (FE) 24 UG/DL (65-175); LDL CHOLESTEROL 91.9 MG/DL (<100); NON-HDL-C 113.9 MG/DL; POTASSIUM SERUM 5.4 MMOL/L (3.5-5.1); SODIUM LEVEL 134 MMOL/L (136-145); TOTAL PROTEIN 6.7 G/DL (5.7-8.2); TRIGLYCERIDES LEVEL 110 MG/DL (<150)
[2023-12-01 17:37] LABS: BASO % 0.5 % (0.0-1.0); EOS # 0.2 10^3/uL (0.0-0.5); EOS % 2.8 % (0.0-3.0); HEMATOCRIT 25.8 % (42.0-52.0); LYMPH # 1.3 10^3/uL (1.5-5.0); LYMPH % 19.7 % (24.0-44.0); MEAN CORPUSCULAR HEMOGLOBIN 30.9 pg (27.0-33.0); MEAN CORPUSCULAR VOLUME 99.6 fl (80.0-96.0); MONO # 0.7 10^3/uL (0.0-0.8); MONO % 11.1 % (2.0-8.0); NEUTROPHILS # 4.2 10^3/uL (1.5-8.5); NEUTROPHILS % 65.6 % (36.0-66.0); PLATELET COUNT, AUTOMATED 129 10^3/uL (150-450); RED BLOOD COUNT 2.59 10^6/uL (4.30-6.10); WHITE BLOOD COUNT 6.5 10^3/uL (4.0-10.0)
[2023-12-01 17:38] LABS: THYROID STIMULATING HORMONE 2.228 uIU/ML (0.55-4.78); TOTAL 25(OH) VITAMIN D 64.6 NG/ML (20.0-100.0)
[2023-12-01 17:40] LABS: VITAMIN B12 LEVEL > 2000 PG/ML (211-911)
[2023-12-01 17:46] LABS: HEMOGLOBIN A1c 6.8 % (4.0-6.0)
[2023-12-01 18:02] LABS: CREATININE, URINE 93.6 MG/DL; MAU/CREAT RATIO 134.6 MCG/MG (0.0-30.0)
== END ==
LOC: M PLALAB 14:25
PROVIDERS: ATTEND Internal Medicine Hematology
DX: D64.9 Anemia, unspecified (principal); E78.00 Pure hypercholesterolemia, unspecified

== ENCOUNTER 2023-12-02 21:32 | Inpatient (IN) | payer MEDICARE, OTHER ==
[~2023-12-02] VITALS: Ht 180.3 cm; Wt 82.9 kg
[~2023-12-02 21:32] MED LIST changes: -SYMB16INH
[2023-12-02 22:25] LABS: BASO % 0.1 % (0.0-1.0); EOS # 0.1 10^3/uL (0.0-0.5); EOS % 0.6 % (0.0-3.0); HEMATOCRIT 24.5 % (42.0-52.0); HEMOGLOBIN 7.8 g/dl (13.5-17.5); LYMPH # 0.7 10^3/uL (1.5-5.0); LYMPH % 9.5 % (24.0-44.0); MEAN CORPUSCULAR HEMOGLOBIN 31.3 pg (27.0-33.0); MEAN CORPUSCULAR HGB CONC 31.8 g/dl (32.0-36.5); MEAN CORPUSCULAR VOLUME 98.4 fl (80.0-96.0); MONO # 0.7 10^3/uL (0.0-0.8); MONO % 9.4 % (2.0-8.0); NEUTROPHILS # 6.2 10^3/uL (1.5-8.5); NEUTROPHILS % 80.1 % (36.0-66.0); PLATELET COUNT, AUTOMATED 124 10^3/uL (150-450); RED BLOOD COUNT 2.49 10^6/uL (4.30-6.10); WHITE BLOOD COUNT 7.8 10^3/uL (4.0-10.0)
[2023-12-02 22:35] LABS: VENOUS HCO3 21.6 MMOL/L (23.0-27.0); VENOUS O2 SATURATION 93.8 % (60.0-80.0); VENOUS PARTIAL PRESSURE CO2 36.9 mmHg (38.0-50.0); VENOUS PH 7.386 UNITS (7.330-7.430); VENOUS STANDARD HCO3 21.9 MMOL/L; VENOUS TOTAL CO2 22.8 MMOL/L (24.0-28.0)
[2023-12-02] MEDS: IPRATROPIUM 0.5MG/ALBUTEROL 2.5MG INH SOL UD 3ML (DUONEB) NEB ONE (22:46)
[2023-12-02 22:49] LABS: CK-MB VALUE MASS 3.4 NG/ML (<3.6)
[2023-12-02 22:51] LABS: ALBUMIN 3.5 G/DL (3.2-5.2); BILIRUBIN,DIRECT 0.2 MG/DL (<0.4); BILIRUBIN,TOTAL 0.7 MG/DL (0.3-1.2); CALCIUM LEVEL 9.4 MG/DL (8.3-10.6); CREATININE FOR GFR 2.27 MG/DL (0.70-1.30); GLOMERULAR FILTRATION RATE 29.2 (>35); MB/CK RELATIVE INDEX 3.4 (< OR =4); POTASSIUM SERUM 4.5 MMOL/L (3.5-5.1); TOTAL PROTEIN 6.7 G/DL (5.7-8.2)
[2023-12-02] MEDS: methylPREDNISolone 125MG 2ML VIAL IV ONE (23:17)
[2023-12-02] MEDS ORDERED: SYMB16INH (23:31)
[2023-12-03] VITALS (16 sets, daily range): BP systolic 111–140; BP diastolic 55–63; TEMP 97.2–99.1; O2SAT 89–100
[2023-12-03 00:11] LABS: CK-MB VALUE MASS 2.6 NG/ML (<3.6); MB/CK RELATIVE INDEX 2.76 (< OR =4)
[2023-12-03 01:23] LABS: CK-MB VALUE MASS 4.1 NG/ML (<3.6)
[2023-12-03 01:28] LABS: MB/CK RELATIVE INDEX 4.27 (< OR =4)
[2023-12-03] MEDS ORDERED: GLUCOSE 4 GM CHEW PO PRN (03:40)
[2023-12-03] MEDS ORDERED: ALBUTEROL SULFATE 2.5MG/0.5ML INH NEB SOLN NEB PRN (03:40)
[2023-12-03] MEDS ORDERED: GLUCAGON INJ 1MG VIAL SC PRN (03:40)
[2023-12-03] MEDS ORDERED: ACETAMINOPHEN TAB 650MG DOSE (2X325MG) PO PRN (03:40)
[2023-12-03] MEDS ORDERED: DEXTROSE 50% 50ML SYRINGE IV PRN (03:40)
[2023-12-03] MEDS: FUROSEMIDE 40MG/4ML VIAL IV ONE (04:18)
[2023-12-03] MEDS: cefTRIAXone SOD 1 GM in D5W MINI-BAG PLUS 50 ML IV ONE (04:18)
[2023-12-03] MEDS ORDERED: LOSA100T8 PO (04:30)
[2023-12-03] MEDS ORDERED: FURO40TA2 PO (04:30)
[2023-12-03] MEDS ORDERED: JARD1TAB3 PO (04:30)
[2023-12-03] MEDS ORDERED: ERGO500029 PO (04:30)
[2023-12-03] MEDS ORDERED: FLOM0.4C39 PO (04:30)
[2023-12-03] MEDS ORDERED: CO Q1CAP2 PO (04:30)
[2023-12-03] MEDS ORDERED: RETA1000 SC (04:30)
[2023-12-03] MEDS ORDERED: TIRZ2.5P SC (04:30)
[2023-12-03] MEDS ORDERED: POLY150C5 PO (04:30)
[2023-12-03] MEDS ORDERED: BUDE10.32 INH (04:30)
[2023-12-03] MEDS ORDERED: ROSU40TA63 PO (04:30)
[2023-12-03] MEDS ORDERED: GLUC1TAB58 PO (04:30)
[2023-12-03] MEDS ORDERED: HOME MED LIST COMPLETE! XX SCH (04:35)
[2023-12-03] MEDS ORDERED: FLUTICASONE PROP 0.05% NASAL SPRAY 16 GM (FLONASE) PRN (07:10)
[2023-12-03 07:22] LABS: PROCALCITONIN 1.29 ng/ml
[2023-12-03 07:30] LABS: HEMATOCRIT 25.3 % (42.0-52.0); MEAN CORPUSCULAR HEMOGLOBIN 31.4 pg (27.0-33.0); MEAN CORPUSCULAR HGB CONC 31.6 g/dl (32.0-36.5); MEAN CORPUSCULAR VOLUME 99.2 fl (80.0-96.0); PLATELET COUNT, AUTOMATED 132 10^3/uL (150-450); RED BLOOD COUNT 2.55 10^6/uL (4.30-6.10); WHITE BLOOD COUNT 4.9 10^3/uL (4.0-10.0)
[2023-12-03 07:34] LABS: CALCIUM LEVEL 9.5 MG/DL (8.3-10.6); CREATININE FOR GFR 2.23 MG/DL (0.70-1.30); GLOMERULAR FILTRATION RATE 29.8 (>35); PERCENT SATURATION 9.2 % (19.7-50.0); POTASSIUM SERUM 4.8 MMOL/L (3.5-5.1)
[2023-12-03] MEDS ORDERED: IPRATROPIUM 0.5MG/ALBUTEROL 2.5MG INH SOL UD 3ML (DUONEB) NEB SCH (08:00)
[2023-12-03] MEDS: CARVedilol 6.25 MG TAB PO SCH (08:45)
[2023-12-03] MEDS: DOCUSATE SODIUM 100MG CAPSULE PO SCH (08:46)
[2023-12-03] MEDS: TAMSULOSIN 0.4 MG CAP PO SCH (08:46)
[2023-12-03] MEDS: CYANOCOBALAMIN 500 MCG TAB PO SCH (08:46)
[2023-12-03] MEDS: PANTOPRAZOLE 40MG TAB (PROTONIX) PO SCH (08:46)
[2023-12-03] MEDS: FUROSEMIDE 40MG/4ML VIAL IV SCH (08:47)
[2023-12-03] MEDS: HEPARIN SOD (PORCINE) 5000UNITS/ML 1ML VIAL/SYRINGE SC SCH (08:47)
[2023-12-03] MEDS: amLODIPine 5 MG TAB PO SCH (08:47)
[2023-12-03] MEDS: INSULIN LISPRO (NovoLOG) PER UNIT SC SCH ×2 (08:48→22:25)
[2023-12-03] MEDS: BRIMONIDINE 0.1% OPHTH SOLN 5ML OU SCH (08:48)
[2023-12-03] MEDS: IPRATROPIUM 0.5MG/ALBUTEROL 2.5MG INH SOL UD 3ML (DUONEB) NEB SCH (11:25)
[2023-12-03] MEDS: LATANOPROST 0.005% OPHTH SOLN 2.5 ML OU SCH (21:24)
[2023-12-03] MEDS: ROSUVASTATIN 10 MG TAB (CRESTOR) PO SCH (21:24)
[2023-12-03] MEDS: methylPREDNISolone 40MG 1ML VIAL IV SCH (21:24)
[2023-12-03] MEDS: ASPIRIN 81MG ENTERIC TABLET PO SCH (21:24)
[2023-12-04] VITALS (16 sets, daily range): BP systolic 103–122; BP diastolic 53–58; TEMP 97.4–98.2; O2SAT 88–100
[2023-12-04] MEDS: BENZONATATE 100MG CAPSULE PO SCH (00:05)
[2023-12-04] MEDS: cefTRIAXone SOD 1 GM in D5W MINI-BAG PLUS 50 ML IV SCH (05:33)
[2023-12-04 05:36] LABS: HEMATOCRIT 21.4 % (42.0-52.0); MEAN CORPUSCULAR HEMOGLOBIN 31.5 pg (27.0-33.0); MEAN CORPUSCULAR HGB CONC 32.2 g/dl (32.0-36.5); MEAN CORPUSCULAR VOLUME 97.7 fl (80.0-96.0); PLATELET COUNT, AUTOMATED 143 10^3/uL (150-450); RED BLOOD COUNT 2.19 10^6/uL (4.30-6.10); WHITE BLOOD COUNT 7.9 10^3/uL (4.0-10.0)
[2023-12-04 05:55] LABS: HEMOGLOBIN 6.9 g/dl (13.5-17.5)
[2023-12-04 06:01] LABS: ALBUMIN 3.1 G/DL (3.2-5.2); BILIRUBIN,TOTAL 0.4 MG/DL (0.3-1.2); CALCIUM LEVEL 9.2 MG/DL (8.3-10.6); CREATININE FOR GFR 2.51 MG/DL (0.70-1.30); POTASSIUM SERUM 4.5 MMOL/L (3.5-5.1)
[2023-12-04] MEDS: DARBEPOETIN 40MCG/0.4ML *NON-DIALYSIS* SYRINGE SQ ONE (15:08)
[2023-12-05] VITALS (10 sets, daily range): BP systolic 109–113; BP diastolic 53–57; TEMP 97–98.2; O2SAT 90–95
[2023-12-05 06:56] LABS: HEMATOCRIT 26.4 % (42.0-52.0); HEMOGLOBIN 8.3 g/dl (13.5-17.5); MEAN CORPUSCULAR HEMOGLOBIN 30.5 pg (27.0-33.0); MEAN CORPUSCULAR HGB CONC 31.4 g/dl (32.0-36.5); MEAN CORPUSCULAR VOLUME 97.1 fl (80.0-96.0); PLATELET COUNT, AUTOMATED 152 10^3/uL (150-450); RED BLOOD COUNT 2.72 10^6/uL (4.30-6.10); WHITE BLOOD COUNT 7.3 10^3/uL (4.0-10.0)
[2023-12-06 05:21] VITALS: BP 108/55; TEMP 97.5; O2SAT 89
[2023-12-06 06:44] LABS: BASO % 0.2 % (0.0-1.0); EOS # 0.2 10^3/uL (0.0-0.5); HEMATOCRIT 28.8 % (42.0-52.0); HEMOGLOBIN 9.6 g/dl (13.5-17.5); LYMPH # 1.1 10^3/uL (1.5-5.0); LYMPH % 15.9 % (24.0-44.0); MEAN CORPUSCULAR HEMOGLOBIN 31.3 pg (27.0-33.0); MEAN CORPUSCULAR HGB CONC 33.3 g/dl (32.0-36.5); MEAN CORPUSCULAR VOLUME 93.8 fl (80.0-96.0); MONO # 0.7 10^3/uL (0.0-0.8); MONO % 10.8 % (2.0-8.0); NEUTROPHILS # 4.6 10^3/uL (1.5-8.5); NEUTROPHILS % 69.3 % (36.0-66.0); PLATELET COUNT, AUTOMATED 143 10^3/uL (150-450); RED BLOOD COUNT 3.07 10^6/uL (4.30-6.10); WHITE BLOOD COUNT 6.6 10^3/uL (4.0-10.0)
[2023-12-06 07:19] LABS: CALCIUM LEVEL 8.6 MG/DL (8.3-10.6); CREATININE FOR GFR 2.27 MG/DL (0.70-1.30); GLOMERULAR FILTRATION RATE 29.2 (>35); POTASSIUM SERUM 3.8 MMOL/L (3.5-5.1)
[2023-12-06] MEDS: FUROSEMIDE 40 MG TAB PO SCH (08:24)
[2023-12-06 12:00] VITALS: BP 115/57; TEMP 97.9; O2SAT 95
[2023-12-06 20:01] VITALS: BP 110/57; TEMP 98.1; O2SAT 90
[2023-12-07 04:26] VITALS: BP 113/51; TEMP 97.3; O2SAT 98
[2023-12-07 08:00] LABS: HEMATOCRIT 31.3 % (42.0-52.0); HEMOGLOBIN 10.1 g/dl (13.5-17.5); MEAN CORPUSCULAR HEMOGLOBIN 30.1 pg (27.0-33.0); MEAN CORPUSCULAR HGB CONC 32.3 g/dl (32.0-36.5); MEAN CORPUSCULAR VOLUME 93.4 fl (80.0-96.0); PLATELET COUNT, AUTOMATED 173 10^3/uL (150-450); RED BLOOD COUNT 3.35 10^6/uL (4.30-6.10); WHITE BLOOD COUNT 5.8 10^3/uL (4.0-10.0)
[2023-12-07] MEDS: FUROSEMIDE 40 MG TAB PO SCH (08:28)
[2023-12-07 08:33] LABS: CALCIUM LEVEL 8.9 MG/DL (8.3-10.6); CREATININE FOR GFR 2.16 MG/DL (0.70-1.30); GLOMERULAR FILTRATION RATE 30.9 (>35); POTASSIUM SERUM 3.8 MMOL/L (3.5-5.1)
[2023-12-07 12:07] VITALS: BP 112/52; TEMP 97.7; O2SAT 96
[2023-12-07 19:58] VITALS: BP 112/54; TEMP 98.8; O2SAT 94
[2023-12-08 04:02] VITALS: BP 113/53; TEMP 97.3; O2SAT 96
[2023-12-08 08:43] VITALS: BP 115/55
[2023-12-08 08:58] LABS: HEMATOCRIT 32.5 % (42.0-52.0); HEMOGLOBIN 10.5 g/dl (13.5-17.5); MEAN CORPUSCULAR HEMOGLOBIN 30.6 pg (27.0-33.0); MEAN CORPUSCULAR HGB CONC 32.3 g/dl (32.0-36.5); MEAN CORPUSCULAR VOLUME 94.8 fl (80.0-96.0); PLATELET COUNT, AUTOMATED 185 10^3/uL (150-450); RED BLOOD COUNT 3.43 10^6/uL (4.30-6.10); WHITE BLOOD COUNT 6.9 10^3/uL (4.0-10.0)
[2023-12-08 09:16] LABS: CALCIUM LEVEL 9.1 MG/DL (8.3-10.6); CREATININE FOR GFR 1.96 MG/DL (0.70-1.30); GLOMERULAR FILTRATION RATE 34.6 (>35); POTASSIUM SERUM 3.8 MMOL/L (3.5-5.1)
[2023-12-08] MEDS ORDERED: FURO40TA2 PO (13:03)
== END 2023-12-08 15:05 | disposition home or self-care (01) | DRG 291 ==
LOC: M ED 21:32 → M ED INP 12-03 03:39 → M PCU 12-03 05:35 → M MS5PR 12-04 15:15
PROVIDERS: ADMIT Internal Medicine; ATTEND Internal Medicine
PROC: 30233N1 Transfusion of Nonautologous Red Blood Cells into Peripheral Vein, Percutaneous Approach (ICD-10-PCS; principal; 2023-12-04)
DX: I13.0 Hypertensive heart and chronic kidney disease with heart failure and stage 1 through stage 4 chronic kidney disease, or unspecified chronic kidney disease (principal); I50.23 Acute on chronic systolic (congestive) heart failure; J44.1 Chronic obstructive pulmonary disease with (acute) exacerbation; N18.4 Chronic kidney disease, stage 4 (severe); I25.118 Atherosclerotic heart disease of native coronary artery with other forms of angina pectoris; I25.2 Old myocardial infarction; E11.22 Type 2 diabetes mellitus with diabetic chronic kidney disease; E11.65 Type 2 diabetes mellitus with hyperglycemia; D64.9 Anemia, unspecified; H40.9 Unspecified glaucoma; K59.00 Constipation, unspecified; E78.00 Pure hypercholesterolemia, unspecified; J45.909 Unspecified asthma, uncomplicated; G47.33 Obstructive sleep apnea (adult) (pediatric); E61.1 Iron deficiency; Z85.820 Personal history of malignant melanoma of skin; Z85.828 Personal history of other malignant neoplasm of skin; Z95.5 Presence of coronary angioplasty implant and graft; G43.909 Migraine, unspecified, not intractable, without status migrainosus; Z98.41 Cataract extraction status, right eye; Z98.42 Cataract extraction status, left eye; Z79.82 Long term (current) use of aspirin; Z79.84 Long term (current) use of oral hypoglycemic drugs; Z87.891 Personal history of nicotine dependence; Z79.899 Other long term (current) drug therapy; Z91.018 Allergy to other foods

== ENCOUNTER → 2023-12-17 | Outpatient (CLI) | payer MEDICARE, OTHER ==
[~2023-12-17] MED LIST changes: +BUDE10.32 INH; +CO Q1CAP2 PO; +ERGO500029 PO; +FLOM0.4C39 PO; +FURO40TA2 PO; +GLUC1TAB58 PO; +JARD1TAB3 PO; +LOSA100T8 PO; +POLY150C5 PO; +RETA1000 SC; +ROSU40TA63 PO; +SYMB16INH; +TIRZ2.5P SC
[2023-12-17 18:16] LABS: BASO % 0.4 % (0.0-1.0); EOS # 0.4 10^3/uL (0.0-0.5); EOS % 4.8 % (0.0-3.0); HEMATOCRIT 33.1 % (42.0-52.0); HEMOGLOBIN 10.4 g/dl (13.5-17.5); LYMPH # 1.7 10^3/uL (1.5-5.0); LYMPH % 23.2 % (24.0-44.0); MEAN CORPUSCULAR HEMOGLOBIN 30.3 pg (27.0-33.0); MEAN CORPUSCULAR HGB CONC 31.4 g/dl (32.0-36.5); MEAN CORPUSCULAR VOLUME 96.5 fl (80.0-96.0); MONO # 0.7 10^3/uL (0.0-0.8); NEUTROPHILS # 4.4 10^3/uL (1.5-8.5); NEUTROPHILS % 61.2 % (36.0-66.0); PLATELET COUNT, AUTOMATED 201 10^3/uL (150-450); RED BLOOD COUNT 3.43 10^6/uL (4.30-6.10); WHITE BLOOD COUNT 7.3 10^3/uL (4.0-10.0)
== END ==
LOC: M PLALAB 14:28
PROVIDERS: ATTEND Internal Medicine Hematology
DX: R97.20 Elevated prostate specific antigen [PSA] (principal); E87.5 Hyperkalemia

== ENCOUNTER 2023-12-18 13:40 | Outpatient (CLI) | payer MEDICARE, OTHER ==
[~2023-12-18] VITALS: Ht 180.3 cm; Wt 83.0 kg
[~2023-12-18 13:40] MED LIST changes: +ALBUTEROL SULFATE 2.5MG/0.5ML INH NEB SOLN INH PRN; +EPINEPHrine INJ 1 MG/ML 1ML AMP IM PRN; +NS 1,000 ML IV SCH; +diphenhydrAMINE 50MG/ML VIAL IV PRN; +methylPREDNISolone 125MG 2ML VIAL IV PRN
[2023-12-18] MEDS: IRON SUCROSE 300 MG in NS 250 ML IV ONE (14:11)
[2023-12-18 14:35] VITALS: BP 121/58; O2SAT 98
[2023-12-18 15:45] VITALS: BP 127/61; O2SAT 96
== END 2023-12-18 15:50 ==
LOC: M INFU 13:40
PROVIDERS: ATTEND Internal Medicine Hematology
DX: D50.9 Iron deficiency anemia, unspecified (principal); Z91.010 Allergy to peanuts
CPT/HCPCS: 96365; J1756

== ENCOUNTER 2023-12-25 12:30 | Outpatient (CLI) | payer MEDICARE, OTHER ==
[~2023-12-25] VITALS: Ht 180.3 cm; Wt 81.4 kg
[2023-12-25 12:50] VITALS: BP 111/56; O2SAT 98
[2023-12-25] MEDS: IRON SUCROSE 300 MG in NS 250 ML IV ONE (13:35)
[2023-12-25 15:35] VITALS: BP 115/59; O2SAT 100
== END 2023-12-25 15:45 ==
LOC: M INFU 12:30
PROVIDERS: ATTEND Internal Medicine Hematology
DX: D50.9 Iron deficiency anemia, unspecified (principal); Z91.010 Allergy to peanuts
CPT/HCPCS: 96365; 96366; J1756

== ENCOUNTER → 2023-12-31 | Outpatient (REF) | payer MEDICARE, OTHER ==
[~2023-12-31] MED LIST changes: -ALBUTEROL SULFATE 2.5MG/0.5ML INH NEB SOLN INH PRN; -EPINEPHrine INJ 1 MG/ML 1ML AMP IM PRN; -NS 1,000 ML IV SCH; -diphenhydrAMINE 50MG/ML VIAL IV PRN; -methylPREDNISolone 125MG 2ML VIAL IV PRN
[2023-12-31 18:52] LABS: BASO % 0.6 % (0.0-1.0); EOS # 0.3 10^3/uL (0.0-0.5); EOS % 5.8 % (0.0-3.0); HEMATOCRIT 31.8 % (42.0-52.0); HEMOGLOBIN 10.1 g/dl (13.5-17.5); LYMPH # 1.7 10^3/uL (1.5-5.0); LYMPH % 33.8 % (24.0-44.0); MEAN CORPUSCULAR HEMOGLOBIN 30.8 pg (27.0-33.0); MEAN CORPUSCULAR HGB CONC 31.8 g/dl (32.0-36.5); MONO # 0.7 10^3/uL (0.0-0.8); MONO % 12.8 % (2.0-8.0); NEUTROPHILS # 2.4 10^3/uL (1.5-8.5); NEUTROPHILS % 46.8 % (36.0-66.0); PLATELET COUNT, AUTOMATED 152 10^3/uL (150-450); RED BLOOD COUNT 3.28 10^6/uL (4.30-6.10); WHITE BLOOD COUNT 5.2 10^3/uL (4.0-10.0)
[2023-12-31 19:09] LABS: C REACTIVE PROTEIN QUANTITATIV 0.6 MG/DL (<1.0)
[2023-12-31 19:11] LABS: ALBUMIN 3.6 G/DL (3.2-5.2); BILIRUBIN,TOTAL 0.4 MG/DL (0.3-1.2); CALCIUM LEVEL 8.8 MG/DL (8.3-10.6); CHOLESTEROL RISK RATIO 4.89 (<5); CREATININE FOR GFR 1.81 MG/DL (0.70-1.30); GLOMERULAR FILTRATION RATE 37.9 (>35); HDL CHOLESTEROL 36.8 MG/DL (>40); LDL CHOLESTEROL 105.6 MG/DL (<100); NON-HDL-C 143.2 MG/DL; POTASSIUM SERUM 4.2 MMOL/L (3.5-5.1); TOTAL PROTEIN 6.8 G/DL (5.7-8.2)
== END ==
LOC: M SFHCPLAZ 08:25
PROVIDERS: ATTEND Internal Medicine Hematology
DX: D64.9 Anemia, unspecified (principal); I25.10 Atherosclerotic heart disease of native coronary artery without angina pectoris

== ENCOUNTER 2024-01-01 14:16 | Outpatient (CLI) | payer MEDICARE, OTHER ==
[~2024-01-01] VITALS: Ht 180.3 cm; Wt 80.5 kg
[2024-01-01 13:35] VITALS: BP 119/58; O2SAT 97
[2024-01-01] MEDS: IRON SUCROSE 300 MG in NS 250 ML IV ONE (13:49)
[~2024-01-01 14:16] MED LIST changes: +ALBUTEROL SULFATE 2.5MG/0.5ML INH NEB SOLN INH PRN; +EPINEPHrine INJ 1 MG/ML 1ML AMP IM PRN; +diphenhydrAMINE 50MG/ML VIAL IV PRN; +methylPREDNISolone 125MG 2ML VIAL IV PRN
[2024-01-01] MEDS: NS 1,000 ML IV SCH (14:23)
[2024-01-01 15:28] VITALS: BP 113/58; O2SAT 98
== END 2024-01-01 15:29 ==
LOC: M INFU 14:16
PROVIDERS: ATTEND Internal Medicine Hematology
DX: D50.9 Iron deficiency anemia, unspecified (principal); Z91.010 Allergy to peanuts
CPT/HCPCS: 96365; 96366; J1756

== ENCOUNTER 2024-01-20 12:55 | Outpatient (CLI) | payer MEDICARE, OTHER ==
[~2024-01-20] VITALS: Ht 182.9 cm; Wt 87.0 kg
[2024-01-20 12:45] VITALS: BP 119/58; O2SAT 95
[~2024-01-20 12:55] MED LIST changes: +NS 1,000 ML IV SCH
[2024-01-20] MEDS: IRON SUCROSE 300 MG in NS 250 ML IV ONE (13:24)
[2024-01-20 15:05] VITALS: BP 110/58; O2SAT 98
== END 2024-01-20 15:00 ==
LOC: M INFU 12:55
PROVIDERS: ATTEND Internal Medicine Hematology
DX: D50.9 Iron deficiency anemia, unspecified (principal); Z91.048 Other nonmedicinal substance allergy status
CPT/HCPCS: 96365; 96366; J1756

== ENCOUNTER 2024-02-05 11:22 | Outpatient (CLI) | payer MEDICARE, OTHER ==
[~2024-02-05] VITALS: Ht 180.3 cm; Wt 83.2 kg
[~2024-02-05 11:22] MED LIST changes: +IRON SUCROSE 300 MG in NS 250 ML IV ONE; -ROSU40TA63 PO; +ROSU40TA81 PO
[2024-02-05 11:30] VITALS: BP 117/56; O2SAT 96
[2024-02-05] MEDS: IRON SUCROSE 300 MG in NS 250 ML OVER 90 MIN. IV ONE (11:48)
[2024-02-05 13:30] VITALS: BP 128/58; O2SAT 97
== END 2024-02-05 13:30 ==
LOC: M INFU 11:22
PROVIDERS: ATTEND Internal Medicine Hematology
DX: D50.9 Iron deficiency anemia, unspecified (principal); Z91.010 Allergy to peanuts
CPT/HCPCS: 96365; 96366; J1756

== ENCOUNTER → 2024-04-01 | Outpatient (REF) | payer MEDICARE, OTHER ==
[~2024-04-01] MED LIST changes: -ALBUTEROL SULFATE 2.5MG/0.5ML INH NEB SOLN INH PRN; -EPINEPHrine INJ 1 MG/ML 1ML AMP IM PRN; -IRON SUCROSE 300 MG in NS 250 ML IV ONE; -NS 1,000 ML IV SCH; -ROSU20TA61 PO; +ROSU20TA86 PO; -diphenhydrAMINE 50MG/ML VIAL IV PRN; -methylPREDNISolone 125MG 2ML VIAL IV PRN
[2024-04-01 17:38] LABS: EOS % 0.1 % (0.0-3.0); HEMATOCRIT 27.8 % (42.0-52.0); LYMPH # 1.2 10^3/uL (1.5-5.0); LYMPH % 14.2 % (24.0-44.0); MEAN CORPUSCULAR HEMOGLOBIN 33.2 pg (27.0-33.0); MEAN CORPUSCULAR HGB CONC 32.4 g/dl (32.0-36.5); MEAN CORPUSCULAR VOLUME 102.6 fl (80.0-96.0); MONO # 0.6 10^3/uL (0.0-0.8); MONO % 6.5 % (2.0-8.0); NEUTROPHILS # 6.7 10^3/uL (1.5-8.5); NEUTROPHILS % 78.7 % (36.0-66.0); PLATELET COUNT, AUTOMATED 170 10^3/uL (150-450); RED BLOOD COUNT 2.71 10^6/uL (4.30-6.10); WHITE BLOOD COUNT 8.5 10^3/uL (4.0-10.0)
[2024-04-01 18:08] LABS: C REACTIVE PROTEIN QUANTITATIV 1.2 MG/DL (<1.0); CREATININE, URINE 61.6 MG/DL; MAU/CREAT RATIO 311.6 MCG/MG (0.0-30.0)
[2024-04-01 18:09] LABS: ALBUMIN 3.6 G/DL (3.2-5.2); BILIRUBIN,TOTAL 0.5 MG/DL (0.3-1.2); CREATININE FOR GFR 1.82 MG/DL (0.70-1.30); GLOMERULAR FILTRATION RATE 37.6 (>35); POTASSIUM SERUM 4.2 MMOL/L (3.5-5.1); TOTAL PROTEIN 6.6 G/DL (5.7-8.2)
[2024-04-01 18:11] LABS: FREE T4 1.27 NG/DL (0.89-1.76); THYROID STIMULATING HORMONE 1.162 uIU/ML (0.55-4.78)
== END ==
LOC: M SFHCPLAZ 08:06
PROVIDERS: ATTEND Internal Medicine Hematology
DX: E11.9 Type 2 diabetes mellitus without complications (principal); D64.9 Anemia, unspecified

== ENCOUNTER 2024-04-19 14:20 | Outpatient (CLI) | payer MEDICARE, OTHER ==
[~2024-04-19] VITALS: Ht 182.9 cm; Wt 84.1 kg
[~2024-04-19 14:20] MED LIST changes: +ALBUTEROL SULFATE 2.5MG/0.5ML INH NEB SOLN INH PRN; +EPINEPHrine INJ 1 MG/ML 1ML AMP IM PRN; +NS 1,000 ML IV SCH; +diphenhydrAMINE 50MG/ML VIAL IV PRN; +methylPREDNISolone 125MG 2ML VIAL IV PRN
[2024-04-19] MEDS: IRON SUCROSE 300 MG in NS 250 ML IV ONE (14:50)
[2024-04-19 16:23] VITALS: BP 122/58; O2SAT 96
== END 2024-04-19 16:30 ==
LOC: M INFU 14:20
PROVIDERS: ATTEND Internal Medicine Hematology
DX: D64.9 Anemia, unspecified (principal); Z91.010 Allergy to peanuts
CPT/HCPCS: 96365; 96366; J1756

== ENCOUNTER 2024-04-26 13:30 | Outpatient (CLI) | payer MEDICARE, OTHER ==
[~2024-04-26] VITALS: Ht 165.1 cm; Wt 84.0 kg
[2024-04-26 13:30] VITALS: BP 162/72; O2SAT 94
[2024-04-26] MEDS: IRON SUCROSE 300 MG in NS 250 ML OVER 90 MIN. IV ONE (14:10)
[2024-04-26 15:54] VITALS: BP 145/67; O2SAT 99
== END 2024-04-26 15:55 ==
LOC: M INFU 13:30
PROVIDERS: ATTEND Internal Medicine Hematology
DX: D64.9 Anemia, unspecified (principal); Z91.010 Allergy to peanuts
CPT/HCPCS: 96365; 96366; J1756

== ENCOUNTER 2024-05-05 12:50 | Outpatient (CLI) | payer MEDICARE, OTHER ==
[2024-05-03] MEDS: IRON SUCROSE 300 MG in NS 250 ML IV ONE (13:20)
[~2024-05-05] VITALS: Ht 182.9 cm; Wt 86.3 kg
[2024-05-05 12:50] VITALS: BP 130/68; O2SAT 97
[2024-05-05] MEDS: IRON SUCROSE 300 MG in NS 250 ML IV ONE (13:21)
[2024-05-05] MEDS: NS 1,000 ML IV SCH (13:21)
[2024-05-05 15:00] VITALS: BP 111/53; O2SAT 95
== END 2024-05-05 15:00 ==
LOC: M INFU 12:50
PROVIDERS: ATTEND Internal Medicine Hematology
DX: D64.9 Anemia, unspecified (principal); Z91.010 Allergy to peanuts
CPT/HCPCS: 96365; 96366; J1756

== ENCOUNTER 2024-05-13 14:17 | Outpatient (CLI) | payer MEDICARE, OTHER ==
[2024-05-13 14:17] VITALS: BP 121/57; O2SAT 97
[~2024-05-13 14:17] MED LIST changes: +NS (Normal Saline) 0.9% 1,000 ML IV SCH; -NS 1,000 ML IV SCH
[2024-05-13] MEDS: IRON SUCROSE 300 MG in NS 250 ML IV ONE (14:23)
[2024-05-13 15:59] VITALS: BP 130/62; O2SAT 99
== END 2024-05-13 16:00 | disposition home or self-care (01) ==
LOC: M INFU 14:17
PROVIDERS: ATTEND Internal Medicine Hematology
DX: D64.9 Anemia, unspecified (principal); Z91.018 Allergy to other foods
CPT/HCPCS: 96365; 96366; J1756

== ENCOUNTER → 2024-05-31 | Outpatient (CLI) | payer MEDICARE, OTHER ==
[~2024-05-31] MED LIST changes: -ALBUTEROL SULFATE 2.5MG/0.5ML INH NEB SOLN INH PRN; -EPINEPHrine INJ 1 MG/ML 1ML AMP IM PRN; -NS (Normal Saline) 0.9% 1,000 ML IV SCH; -diphenhydrAMINE 50MG/ML VIAL IV PRN; -methylPREDNISolone 125MG 2ML VIAL IV PRN
[2024-05-31 18:38] LABS: BASO % 0.2 % (0.0-1.0); EOS # 0.3 10^3/uL (0.0-0.5); EOS % 3.1 % (0.0-3.0); HEMATOCRIT 31.6 % (42.0-52.0); LYMPH # 1.4 10^3/uL (1.5-5.0); LYMPH % 16.5 % (24.0-44.0); MEAN CORPUSCULAR HEMOGLOBIN 33.1 pg (27.0-33.0); MEAN CORPUSCULAR HGB CONC 31.6 g/dl (32.0-36.5); MEAN CORPUSCULAR VOLUME 104.6 fl (80.0-96.0); MONO # 0.8 10^3/uL (0.0-0.8); NEUTROPHILS # 5.7 10^3/uL (1.5-8.5); PLATELET COUNT, AUTOMATED 145 10^3/uL (150-450); RED BLOOD COUNT 3.02 10^6/uL (4.30-6.10); WHITE BLOOD COUNT 8.2 10^3/uL (4.0-10.0)
== END ==
LOC: M PLALAB 14:08
PROVIDERS: ATTEND Internal Medicine Hematology
DX: D64.9 Anemia, unspecified (principal)

== ENCOUNTER → 2024-06-04 | Outpatient (CLI) | payer MEDICARE, OTHER ==
[~2024-06-04] MED LIST changes: +PROHANCE 279.3MG/ML 15ML VIAL ONE
== END ==
LOC: M PLAIMG 10:56
PROVIDERS: ATTEND Physician Assistant
DX: R97.20 Elevated prostate specific antigen [PSA] (principal)
CPT/HCPCS: 72197; A9576

== ENCOUNTER → 2024-06-10 | Outpatient (REF) | payer MEDICARE, OTHER ==
[~2024-06-10] MED LIST changes: -PROHANCE 279.3MG/ML 15ML VIAL ONE
[2024-06-10 18:29] LABS: PERCENT SATURATION 38.1 % (19.7-50.0)
== END ==
LOC: M LAB REF 17:06
PROVIDERS: ATTEND Internal Medicine Nephrology
DX: D50.9 Iron deficiency anemia, unspecified (principal)

== ENCOUNTER → 2024-07-07 | Outpatient (CLI) | payer MEDICARE, OTHER ==
[2024-07-07 15:06] LABS: BASO % 0.4 % (0.0-1.0); EOS # 0.2 10^3/uL (0.0-0.5); EOS % 4.3 % (0.0-3.0); HEMATOCRIT 32.5 % (42.0-52.0); HEMOGLOBIN 10.4 g/dl (13.5-17.5); LYMPH # 1.4 10^3/uL (1.5-5.0); LYMPH % 26.4 % (24.0-44.0); MEAN CORPUSCULAR HEMOGLOBIN 32.6 pg (27.0-33.0); MEAN CORPUSCULAR VOLUME 101.9 fl (80.0-96.0); MONO # 0.6 10^3/uL (0.0-0.8); MONO % 12.1 % (2.0-8.0); NEUTROPHILS # 2.9 10^3/uL (1.5-8.5); NEUTROPHILS % 56.2 % (36.0-66.0); PLATELET COUNT, AUTOMATED 177 10^3/uL (150-450); RED BLOOD COUNT 3.19 10^6/uL (4.30-6.10); WHITE BLOOD COUNT 5.1 10^3/uL (4.0-10.0)
== END ==
LOC: M PLALAB 12:48
PROVIDERS: ATTEND Internal Medicine Hematology
DX: D64.9 Anemia, unspecified (principal)

== ENCOUNTER → 2024-07-15 | Outpatient (CLI) | payer MEDICARE, OTHER ==
[2024-07-15 16:07] LABS: IRON (FE) 100 UG/DL (65-175)
[2024-07-15 16:08] LABS: PERCENT SATURATION 35.5 % (19.7-50.0); TOTAL IRON BINDING CAPACITY 282 UG/DL (250-425)
[2024-07-15 16:09] LABS: FOLATE > 24.00 NG/ML (>5.4)
[2024-07-15 16:26] LABS: VITAMIN B12 LEVEL > 2000 PG/ML (211-911)
== END ==
LOC: M PLALAB 11:40
PROVIDERS: ATTEND Internal Medicine Hematology
DX: D64.9 Anemia, unspecified (principal)

== ENCOUNTER → 2024-07-28 | Outpatient (CLI) | payer MEDICARE, OTHER | LOC: M PLAIMG 14:03 | PROVIDERS: ATTEND Physician Assistant Medical | DX: D50.9 Iron deficiency anemia, unspecified (principal); D53.1 Other megaloblastic anemias, not elsewhere classified; D64.9 Anemia, unspecified; Z28.39 Other underimmunization status ==

== ENCOUNTER → 2024-07-28 | Outpatient (CLI) | payer MEDICARE, OTHER ==
[2024-07-28 19:08] LABS: BASO % 0.5 % (0.0-1.0); EOS # 0.2 10^3/uL (0.0-0.5); HEMATOCRIT 31.8 % (42.0-52.0); HEMOGLOBIN 10.4 g/dl (13.5-17.5); LYMPH # 1.8 10^3/uL (1.5-5.0); LYMPH % 29.2 % (24.0-44.0); MEAN CORPUSCULAR HGB CONC 32.7 g/dl (32.0-36.5); MONO # 0.8 10^3/uL (0.0-0.8); MONO % 12.6 % (2.0-8.0); NEUTROPHILS # 3.4 10^3/uL (1.5-8.5); NEUTROPHILS % 54.4 % (36.0-66.0); PLATELET COUNT, AUTOMATED 155 10^3/uL (150-450); RED BLOOD COUNT 3.15 10^6/uL (4.30-6.10); WHITE BLOOD COUNT 6.3 10^3/uL (4.0-10.0)
== END ==
LOC: M PLALAB 14:19
PROVIDERS: ATTEND Student in an Organized Health Care Education/Training Program
DX: D53.1 Other megaloblastic anemias, not elsewhere classified (principal); Z28.39 Other underimmunization status; D64.9 Anemia, unspecified

== ENCOUNTER → 2024-09-02 | Outpatient (CLI) | payer MEDICARE, OTHER | LOC: M PLAIMG 13:50 → M PLALAB 13:50 | PROVIDERS: ATTEND Physician Assistant Medical | DX: J90 Pleural effusion, not elsewhere classified (principal) ==

== ENCOUNTER → 2024-11-30 | Outpatient (CLI) | payer MEDICARE, OTHER ==
[~2024-11-30] MED LIST changes: -BRIM1OPD OU; +BRIM5DRO25 OU; -FLOM0.4C39 PO; +HYDR-3490; +LIDOCAINE 1% MDV 20 ML VIAL SC SCH; +METF-1113 PO; -METF-723 PO; +MIDAZOLAM INJ 2 MG/2 ML VIAL IV PRN; +NS (Normal Saline) 0.9% 1,000 ML IV SCH; +TAMS-18 PO
[2024-11-30 09:19] VITALS: TEMP 98.1
[2024-11-30 10:21] LABS: BASO # 0.0 10^3/uL (0.0-0.2); BASO % 0.4 % (0.0-1.0); EOS # 0.3 10^3/uL (0.0-0.5); EOS % 3.2 % (0.0-3.0); LYMPH # 0.9 10^3/uL (1.5-5.0); LYMPH % 11.0 % (24.0-44.0); MONO # 0.8 10^3/uL (0.0-0.8); MONO % 10.2 % (2.0-8.0); NEUTROPHILS # 5.8 10^3/uL (1.5-8.5); NEUTROPHILS % 74.6 % (36.0-66.0); PLATELET COUNT, AUTOMATED 134 10^3/uL (150-450)
[2024-11-30 10:55] VITALS: BP 139/60; O2SAT 95
== END ==
LOC: M IRPRO 09:10
PROVIDERS: ATTEND Internal Medicine Medical Oncology
DX: D53.9 Nutritional anemia, unspecified (principal); D69.6 Thrombocytopenia, unspecified

== ENCOUNTER → 2025-01-10 | Outpatient (REF) | payer MEDICARE, OTHER ==
[~2025-01-10] MED LIST changes: +AMLO1TAB24; -LIDOCAINE 1% MDV 20 ML VIAL SC SCH; -MIDAZOLAM INJ 2 MG/2 ML VIAL IV PRN; -NS (Normal Saline) 0.9% 1,000 ML IV SCH
[2025-01-10 18:36] LABS: ALT/SGPT 36 U/L (7.0-40); AST/SGOT 38 U/L (<34); CALCIUM LEVEL 9.1 MG/DL (8.3-10.6); CARBON DIOXIDE LEVEL 29 MMOL/L (20-31); CHLORIDE LEVEL 101 MMOL/L (98-107); CREATININE FOR GFR 1.91 MG/DL (0.70-1.30); GLOMERULAR FILTRATION RATE 33.3 (>35); POTASSIUM SERUM 4.5 MMOL/L (3.5-5.1); SODIUM LEVEL 139 MMOL/L (136-145)
[2025-01-10 19:42] LABS: BASO # 0.0 10^3/uL (0.0-0.2); BASO % 0.3 % (0.0-1.0); EOS # 0.3 10^3/uL (0.0-0.5); EOS % 4.6 % (0.0-3.0); LYMPH # 1.2 10^3/uL (1.5-5.0); LYMPH % 16.6 % (24.0-44.0); MONO # 0.7 10^3/uL (0.0-0.8); MONO % 9.3 % (2.0-8.0); NEUTROPHILS # 5.0 10^3/uL (1.5-8.5); NEUTROPHILS % 68.9 % (36.0-66.0); PLATELET COUNT, AUTOMATED 145 10^3/uL (150-450)
[2025-01-11 08:38] LABS: IRON (FE) 84 UG/DL (65-175); PERCENT SATURATION 30.2 % (19.7-50.0)
[2025-01-11 08:46] LABS: VITAMIN B12 LEVEL > 2000 PG/ML (211-911)
== END ==
LOC: M LABDRWCV 17:34
PROVIDERS: ATTEND Internal Medicine Medical Oncology
DX: D64.9 Anemia, unspecified (principal)

== ENCOUNTER 2025-01-24 09:54 | Inpatient (IN) | payer MEDICARE, OTHER ==
[~2025-01-24] VITALS: Ht 180.3 cm; Wt 94.0 kg
[~2025-01-24 09:54] MED LIST changes: -AMLO1TAB24
[2025-01-24 11:07] LABS: VENOUS BASE EXCESS -0.1 (-2.0-2.0); VENOUS HCO3 25.8 MMOL/L (23.0-27.0); VENOUS O2 SATURATION 61.8 % (60.0-80.0); VENOUS PARTIAL PRESSURE CO2 47.9 mmHg (38.0-50.0); VENOUS PARTIAL PRESSURE O2 36.0 mmHg (30.0-50.0); VENOUS PH 7.349 UNITS (7.330-7.430); VENOUS STANDARD HCO3 23.7 MMOL/L; VENOUS TOTAL CO2 27.3 MMOL/L (24.0-28.0)
[2025-01-24 11:13] LABS: BASO # 0.0 10^3/uL (0.0-0.2); BASO % 0.2 % (0.0-1.0); EOS # 0.0 10^3/uL (0.0-0.5); EOS % 0.5 % (0.0-3.0); LYMPH # 0.6 10^3/uL (1.5-5.0); LYMPH % 7.3 % (24.0-44.0); MONO # 0.8 10^3/uL (0.0-0.8); MONO % 8.9 % (2.0-8.0); NEUTROPHILS # 7.1 10^3/uL (1.5-8.5); NEUTROPHILS % 82.7 % (36.0-66.0); PLATELET COUNT, AUTOMATED 150 10^3/uL (150-450)
[2025-01-24 11:40] LABS: CK-MB VALUE MASS 3.8 NG/ML (<3.6)
[2025-01-24 11:42] LABS: ALT/SGPT 26.0 U/L (7.0-40); AST/SGOT 33.0 U/L (<34); CALCIUM LEVEL 8.8 MG/DL (8.3-10.6); CARBON DIOXIDE LEVEL 28.0 MMOL/L (20-31); CHLORIDE LEVEL 103.0 MMOL/L (98-107); CREATININE FOR GFR 1.87 MG/DL (0.70-1.30); GLOMERULAR FILTRATION RATE 34.2 (>35); POTASSIUM SERUM 5.2 MMOL/L (3.5-5.1); SODIUM LEVEL 142.0 MMOL/L (136-145)
[2025-01-24 11:43] LABS: THYROXINE (T4) 7.7 UG/DL (4.5-10.9)
[2025-01-24 11:45] LABS: CPK CREATINE PHOSPHOKINASE 144.0 U/L (46-171); MB/CK RELATIVE INDEX 2.63 (< OR =4)
[2025-01-24] MEDS ORDERED: FERR1TAB8 PO (11:48)
[2025-01-24] MEDS ORDERED: GLIM2TAB29 PO (11:48)
[2025-01-24] MEDS ORDERED: BUDE0.5S6 NEB (11:48)
[2025-01-24] MEDS ORDERED: INSULANT INJ (11:48)
[2025-01-24] MEDS ORDERED: ERGO125013 PO (11:48)
[2025-01-24] MEDS ORDERED: METO1TAB32 PO (11:48)
[2025-01-24] MEDS ORDERED: LOSA50TA28 PO (11:48)
[2025-01-24] MEDS ORDERED: HOME MED LIST COMPLETE! XX SCH (11:50)
[2025-01-24 12:46] LABS: INR 0.99
[2025-01-24 12:52] LABS: CK-MB VALUE MASS 4.7 NG/ML (<3.6)
[2025-01-24 12:54] LABS: CPK CREATINE PHOSPHOKINASE 116.0 U/L (46-171); MB/CK RELATIVE INDEX 4.05 (< OR =4)
[2025-01-24] MEDS: AZITHROMYCIN 250 MG TABLET PO ONE (12:54)
[2025-01-24] MEDS: cefTRIAXone SOD 1 GM in DEXTROSE 5% (D5W) ADV/MINI-BAG 50 ML IV ONE (12:54)
[2025-01-24] MEDS ORDERED: GLUCAGON INJ 1 MG VIAL SC PRN (15:10)
[2025-01-24] MEDS ORDERED: FLUTICASONE PROPIONATE 0.05% NASAL SPRAY 16 GM PRN (15:10)
[2025-01-24] MEDS ORDERED: ALBUTEROL SULFATE 2.5 MG/0.5 ML INH CONCENTRATE NEB SOLN INH PRN (15:10)
[2025-01-24] MEDS ORDERED: GLUCOSE 4 GM CHEW PO PRN (15:10)
[2025-01-24] MEDS ORDERED: DEXTROSE 50% 50 ML SYRINGE IV PRN (15:10)
[2025-01-24] MEDS: FUROSEMIDE 40 MG/4 ML VIAL IV SCH (15:42)
[2025-01-24] MEDS: INSULIN LISPRO (NovoLOG) PER UNIT SC SCH ×2 (18:24→20:37)
[2025-01-24] MEDS: SYMBICORT 160/4.5MCG INHALER 6GM INH SCH (19:43)
[2025-01-24 20:00] VITALS: BP 122/69; TEMP 97.5; O2SAT 94
[2025-01-24] MEDS: TAMSULOSIN 0.4 MG CAP PO SCH (20:51)
[2025-01-24] MEDS: METOPROLOL TART 12.5 MG PER 1/2 TAB PO SCH (20:51)
[2025-01-24] MEDS: APIXABAN 2.5 MG TAB PO SCH (20:51)
[2025-01-24] MEDS: BRIMONIDINE 0.1% OPHTH SOLN 5 ML OU SCH (20:52)
[2025-01-24] MEDS: LATANOPROST 0.005% OPHTH SOLN 2.5 ML OU SCH (20:52)
[2025-01-24] MEDS ORDERED: METOPROLOL SUCC *XL* 12.5 MG PER 1/2 TAB PO SCH (21:00)
[2025-01-25] VITALS (9 sets, daily range): BP systolic 101–118; BP diastolic 58–68; TEMP 97.7–98.2; O2SAT 80–95
[2025-01-25] MEDS: ACETAMINOPHEN 325 MG TAB PO PRN (06:05)
[2025-01-25 07:03] LABS: PLATELET COUNT, AUTOMATED 139 10^3/uL (150-450)
[2025-01-25 07:37] LABS: C REACTIVE PROTEIN QUANTITATIV 6.51 MG/DL (<1.0)
[2025-01-25 07:38] LABS: ALT/SGPT 24.0 U/L (7.0-40); AST/SGOT 21.0 U/L (<34); CALCIUM LEVEL 9.0 MG/DL (8.3-10.6); CARBON DIOXIDE LEVEL 26.0 MMOL/L (20-31); CHLORIDE LEVEL 105.0 MMOL/L (98-107); CREATININE FOR GFR 2.03 MG/DL (0.70-1.30); GLOMERULAR FILTRATION RATE 31.0 (>35); MAGNESIUM LEVEL 2.3 MG/DL (1.8-2.4); POTASSIUM SERUM 4.7 MMOL/L (3.5-5.1); SODIUM LEVEL 142.0 MMOL/L (136-145)
[2025-01-25] MEDS ORDERED: IPRATROPIUM 0.5 MG/ALBUTEROL 2.5 MG INH SOL UD 3 ML NEB PRN (08:10)
[2025-01-25] MEDS: FERROUS SULFATE 325 MG TAB PO SCH (08:19)
[2025-01-25] MEDS: CYANOCOBALAMIN 500 MCG TAB PO SCH (08:19)
[2025-01-25] MEDS: ROSUVASTATIN 10 MG TAB PO SCH (08:19)
[2025-01-25] MEDS: IPRATROPIUM 0.5 MG/ALBUTEROL 2.5 MG INH SOL UD 3 ML NEB SCH (13:15)
[2025-01-25] MEDS: FUROSEMIDE 40 MG/4 ML VIAL IV SCH (16:55)
[2025-01-25] MEDS: METOPROLOL TART 12.5 MG PER 1/2 TAB PO SCH (20:58)
[2025-01-26 04:00] VITALS: BP 109/67; TEMP 98.1; O2SAT 94
[2025-01-26] MEDS: FUROSEMIDE 80 MG TAB PO SCH (08:18)
[2025-01-26] MEDS: METOPROLOL SUCC. 50 MG *XL* TAB PO SCH (08:19)
[2025-01-26 08:39] LABS: PLATELET COUNT, AUTOMATED 150 10^3/uL (150-450)
[2025-01-26 09:03] LABS: CALCIUM LEVEL 9.3 MG/DL (8.3-10.6); CARBON DIOXIDE LEVEL 27.0 MMOL/L (20-31); CHLORIDE LEVEL 102.0 MMOL/L (98-107); CREATININE FOR GFR 2.33 MG/DL (0.70-1.30); GLOMERULAR FILTRATION RATE 26.2 (>35); POTASSIUM SERUM 4.6 MMOL/L (3.5-5.1); SODIUM LEVEL 142.0 MMOL/L (136-145)
[2025-01-26 11:45] VITALS: BP 104/58; TEMP 97.9; O2SAT 94
[2025-01-26 13:00] VITALS: O2SAT 94
[2025-01-26] MEDS: FUROSEMIDE 100 MG/10 ML VIAL IV ONE (14:33)
[2025-01-26 19:47] VITALS: BP 102/52; TEMP 98.1; O2SAT 92
[2025-01-27 04:10] VITALS: BP 108/60; TEMP 98.1; O2SAT 94
[2025-01-27 06:26] LABS: PLATELET COUNT, AUTOMATED 158 10^3/uL (150-450)
[2025-01-27 06:29] VITALS: BP 108/66; TEMP 97.2; O2SAT 93
[2025-01-27 06:53] LABS: CALCIUM LEVEL 9.0 MG/DL (8.3-10.6); CARBON DIOXIDE LEVEL 27.0 MMOL/L (20-31); CHLORIDE LEVEL 103.0 MMOL/L (98-107); CREATININE FOR GFR 2.5 MG/DL (0.70-1.30); GLOMERULAR FILTRATION RATE 24.1 (>35); MAGNESIUM LEVEL 2.4 MG/DL (1.8-2.4); POTASSIUM SERUM 4.3 MMOL/L (3.5-5.1); SODIUM LEVEL 143.0 MMOL/L (136-145)
[2025-01-27 09:02] LABS: KETONE, URINE AUTO RFX NEGATIVE (NEGATIVE); LEUKOCYTE ESTERASE UR AUTO RFX NEGATIVE (NEGATIVE); MUCUS, URINE RFX SMALL (NEGATIVE); NITRITE, URINE AUTO RFX NEGATIVE (NEGATIVE); RBC, URINE AUTO RFX TNTC /HPF (0-3); SQUAM EPITHELIAL CELL UR AURFX 0 /HPF (0-6); WBC, URINE AUTO RFX 3 /HPF (0-3)
[2025-01-27] MEDS: METOPROLOL SUCC. 25 MG *XL* TAB PO SCH (09:04)
[2025-01-27 11:00] VITALS: BP 122/72; TEMP 97.9; O2SAT 92
[2025-01-27] MEDS: CHLOROTHIAZIDE 500 MG VIAL IV ONE (11:22)
[2025-01-27] MEDS: FUROSEMIDE injection 100 MG, VIAL 2 BAG 13MM ADAPTER 1 EACH in NS 100 ML IV SCH (11:30)
[2025-01-27 16:08] VITALS: O2SAT 96
[2025-01-27 20:22] VITALS: BP 111/48; TEMP 98.2; O2SAT 92
[2025-01-27 23:56] VITALS: BP 138/73; TEMP 98.2; O2SAT 95
[2025-01-28] VITALS (11 sets, daily range): BP systolic 98–118; BP diastolic 48–64; TEMP 97.5–98.1; O2SAT 91–98
[2025-01-28] MEDS ORDERED: LIDOCAINE 2% 5 ML JELLY UROJET TOP PRN (00:20)
[2025-01-28] MEDS ORDERED: ETOMIDATE 20 MG/10 ML VIAL As Ordered ONE (09:01)
[2025-01-28] MEDS ORDERED: ONDANSETRON 4MG 2ML VIAL As Ordered ONE (09:13)
[2025-01-28] MEDS ORDERED: HYDROMORPHONE HCL 0.5 MG/0.5 ML SYRINGE IV PRN (10:30)
[2025-01-28] MEDS ORDERED: DEXTROSE 50% 50 ML SYRINGE IV PRN (10:40)
[2025-01-28] MEDS ORDERED: GLUCOSE 4 GM CHEW PO PRN (10:40)
[2025-01-28] MEDS ORDERED: GLUCAGON INJ 1 MG VIAL SC PRN (10:40)
[2025-01-28] MEDS: INSULIN LISPRO (NovoLOG) PER UNIT SC PRN (10:52)
[2025-01-28] MEDS: ceFAZolin SODIUM 2 GM in DEXTROSE 5% (D5W) ADV/MINI-BAG 50 ML IV ONE (11:00)
[2025-01-28 11:30] LABS: BASO # 0.0 10^3/uL (0.0-0.2); BASO % 0.3 % (0.0-1.0); EOS # 0.1 10^3/uL (0.0-0.5); EOS % 1.6 % (0.0-3.0); LYMPH # 0.7 10^3/uL (1.5-5.0); LYMPH % 11.0 % (24.0-44.0); MONO # 0.5 10^3/uL (0.0-0.8); MONO % 7.8 % (2.0-8.0); NEUTROPHILS # 4.9 10^3/uL (1.5-8.5); NEUTROPHILS % 78.8 % (36.0-66.0); PLATELET COUNT, AUTOMATED 158 10^3/uL (150-450)
[2025-01-28] MEDS: CIPROFLOXACIN 500 MG TABLET PO SCH (11:45)
[2025-01-28 11:53] LABS: CALCIUM LEVEL 9.1 MG/DL (8.3-10.6); CARBON DIOXIDE LEVEL 29.0 MMOL/L (20-31); CHLORIDE LEVEL 99.0 MMOL/L (98-107); CREATININE FOR GFR 2.43 MG/DL (0.70-1.30); GLOMERULAR FILTRATION RATE 24.9 (>35); POTASSIUM SERUM 3.8 MMOL/L (3.5-5.1); SODIUM LEVEL 142.0 MMOL/L (136-145)
[2025-01-28] MEDS: CHLOROTHIAZIDE 500 MG VIAL IV ONE (14:08)
[2025-01-28] MEDS: POTASSIUM CHLORIDE 10MEQ SR TABLET PO SCH (15:16)
[2025-01-28] MEDS ORDERED: CIPROFLOXACIN 500 MG TABLET PO SCH (18:00)
[2025-01-29 04:19] VITALS: BP 106/54; TEMP 97.2; O2SAT 95
[2025-01-29 06:39] LABS: BASO # 0.0 10^3/uL (0.0-0.2); BASO % 0.4 % (0.0-1.0); EOS # 0.3 10^3/uL (0.0-0.5); EOS % 3.2 % (0.0-3.0); LYMPH # 0.8 10^3/uL (1.5-5.0); LYMPH % 10.7 % (24.0-44.0); MONO # 0.9 10^3/uL (0.0-0.8); MONO % 11.5 % (2.0-8.0); NEUTROPHILS # 5.8 10^3/uL (1.5-8.5); NEUTROPHILS % 73.8 % (36.0-66.0); PLATELET COUNT, AUTOMATED 162 10^3/uL (150-450)
[2025-01-29 07:07] LABS: CALCIUM LEVEL 8.7 MG/DL (8.3-10.6); CARBON DIOXIDE LEVEL 30.0 MMOL/L (20-31); CHLORIDE LEVEL 98.0 MMOL/L (98-107); CREATININE FOR GFR 2.9 MG/DL (0.70-1.30); GLOMERULAR FILTRATION RATE 20.2 (>35); POTASSIUM SERUM 4.2 MMOL/L (3.5-5.1); SODIUM LEVEL 139.0 MMOL/L (136-145)
[2025-01-29 08:18] VITALS: BP 104/51; TEMP 98.2; O2SAT 95
[2025-01-29] MEDS: LanTUS (INSULIN GLARGINE INJ) 1 UNITS/0.01 ML SC SCH (08:33)
[2025-01-29 09:46] VITALS: O2SAT 93
[2025-01-29 10:23] VITALS: O2SAT 96
[2025-01-29 12:15] VITALS: TEMP 97.7; O2SAT 95
[2025-01-29 18:17] LABS: PLATELET COUNT, AUTOMATED 179 10^3/uL (150-450)
[2025-01-29 20:26] VITALS: BP 100/52; TEMP 98.1; O2SAT 91
[2025-01-30] VITALS (8 sets, daily range): BP systolic 87–117; BP diastolic 50–55; TEMP 97.9–98.2; O2SAT 94–97
[2025-01-30 06:43] LABS: BASO # 0.0 10^3/uL (0.0-0.2); BASO % 0.3 % (0.0-1.0); EOS # 0.2 10^3/uL (0.0-0.5); EOS % 2.3 % (0.0-3.0); LYMPH # 1.0 10^3/uL (1.5-5.0); LYMPH % 12.9 % (24.0-44.0); MONO # 0.9 10^3/uL (0.0-0.8); MONO % 12.0 % (2.0-8.0); NEUTROPHILS # 5.3 10^3/uL (1.5-8.5); NEUTROPHILS % 72.1 % (36.0-66.0); PLATELET COUNT, AUTOMATED 159 10^3/uL (150-450)
[2025-01-30 07:19] LABS: CALCIUM LEVEL 8.1 MG/DL (8.3-10.6); CARBON DIOXIDE LEVEL 30.0 MMOL/L (20-31); CHLORIDE LEVEL 96.0 MMOL/L (98-107); CREATININE FOR GFR 3.56 MG/DL (0.70-1.30); GLOMERULAR FILTRATION RATE 15.8 (>35); POTASSIUM SERUM 4.3 MMOL/L (3.5-5.1); SODIUM LEVEL 137.0 MMOL/L (136-145)
[2025-01-30] MEDS: LanTUS (INSULIN GLARGINE INJ) 1 UNITS/0.01 ML SC SCH (08:57)
[2025-01-30] MEDS: FUROSEMIDE injection 100 MG, VIAL 2 BAG 13MM ADAPTER 1 EACH in NS 100 ML IV SCH (13:26)
[2025-01-31 00:11] VITALS: BP 103/51; TEMP 98.1; O2SAT 95
[2025-01-31 00:55] VITALS: BP 108/57; TEMP 98.1; O2SAT 94
[2025-01-31 01:55] VITALS: BP 108/56; TEMP 97.9; O2SAT 96
[2025-01-31 04:17] VITALS: BP 119/61; TEMP 97.9; O2SAT 95
[2025-01-31 06:56] LABS: BASO # 0.0 10^3/uL (0.0-0.2); BASO % 0.4 % (0.0-1.0); EOS # 0.2 10^3/uL (0.0-0.5); EOS % 2.9 % (0.0-3.0); LYMPH # 1.3 10^3/uL (1.5-5.0); LYMPH % 16.1 % (24.0-44.0); MONO # 0.8 10^3/uL (0.0-0.8); MONO % 9.8 % (2.0-8.0); NEUTROPHILS # 5.6 10^3/uL (1.5-8.5); NEUTROPHILS % 70.4 % (36.0-66.0); PLATELET COUNT, AUTOMATED 178 10^3/uL (150-450)
[2025-01-31 07:18] LABS: CALCIUM LEVEL 8.4 MG/DL (8.3-10.6); CARBON DIOXIDE LEVEL 29.0 MMOL/L (20-31); CHLORIDE LEVEL 97.0 MMOL/L (98-107); CREATININE FOR GFR 3.59 MG/DL (0.70-1.30); GLOMERULAR FILTRATION RATE 15.6 (>35); POTASSIUM SERUM 4.5 MMOL/L (3.5-5.1); SODIUM LEVEL 137.0 MMOL/L (136-145)
[2025-01-31] MEDS: FUROSEMIDE 80 MG TAB PO SCH (11:27)
[2025-01-31 11:40] LABS: IRON (FE) 26.0 UG/DL (65-175); PERCENT SATURATION 11.5 % (19.7-50.0)
[2025-01-31 12:00] VITALS: BP 107/55; TEMP 97.8; O2SAT 97
[2025-01-31 20:18] VITALS: BP 109/52; TEMP 98.1; O2SAT 95
[2025-02-01 03:48] VITALS: BP 102/60; TEMP 97.5; O2SAT 98
[2025-02-01 06:28] LABS: BASO # 0.0 10^3/uL (0.0-0.2); BASO % 0.3 % (0.0-1.0); EOS # 0.3 10^3/uL (0.0-0.5); EOS % 3.7 % (0.0-3.0); LYMPH # 1.1 10^3/uL (1.5-5.0); LYMPH % 15.1 % (24.0-44.0); MONO # 0.8 10^3/uL (0.0-0.8); MONO % 10.8 % (2.0-8.0); NEUTROPHILS # 4.9 10^3/uL (1.5-8.5); NEUTROPHILS % 69.5 % (36.0-66.0); PLATELET COUNT, AUTOMATED 157 10^3/uL (150-450)
[2025-02-01 06:57] LABS: CALCIUM LEVEL 8.2 MG/DL (8.3-10.6); CARBON DIOXIDE LEVEL 30.0 MMOL/L (20-31); CHLORIDE LEVEL 98.0 MMOL/L (98-107); CREATININE FOR GFR 3.33 MG/DL (0.70-1.30); GLOMERULAR FILTRATION RATE 17.1 (>35); POTASSIUM SERUM 4.5 MMOL/L (3.5-5.1); SODIUM LEVEL 138.0 MMOL/L (136-145)
[2025-02-01] MEDS: FERRIC CARBOXYMALTOSE INJ 750 MG, VIAL MATE ADAPTER 1 EACH in NS 100 ML IV ONE (08:29)
[2025-02-01 08:33] VITALS: BP 111/60
[2025-02-01 12:00] VITALS: BP 116/62; TEMP 97.7; O2SAT 96
[2025-02-01] MEDS: DARBEPOETIN 100 MCG/0.5 ML *NON-DIALYSIS* SYRINGE SC SCH (12:19)
[2025-02-01] MEDS ORDERED: CIPR500T39 PO (12:20)
[2025-02-01] MEDS ORDERED: FURO80TA2 PO (12:20)
[2025-02-01] MEDS ORDERED: METO1TAB32 PO (12:30)
[2025-02-01] MEDS ORDERED: ELIQ5TAB PO (12:31)
[2025-02-01] MEDS ORDERED: INSULANT INJ (12:35)
== END 2025-02-01 15:57 | disposition home health service (06) | DRG 987 ==
LOC: M ED 09:54 → M ED INP 09:55 → M MS5PR 15:55 → M MSPAV 01-25 05:46 → OBSVTOIN 01-25 08:14
PROVIDERS: ADMIT Student in an Organized Health Care Education/Training Program; ATTEND Student in an Organized Health Care Education/Training Program
PROC: B246ZZZ Ultrasonography of Right and Left Heart (ICD-10-PCS; 2025-01-25)
PROC: 0VT08ZZ Resection of Prostate, Via Natural or Artificial Opening Endoscopic (ICD-10-PCS; principal; 2025-01-28 09:10)
DX: I13.0 Hypertensive heart and chronic kidney disease with heart failure and stage 1 through stage 4 chronic kidney disease, or unspecified chronic kidney disease (principal); I50.43 Acute on chronic combined systolic (congestive) and diastolic (congestive) heart failure; J96.01 Acute respiratory failure with hypoxia; N25.81 Secondary hyperparathyroidism of renal origin; D62 Acute posthemorrhagic anemia; N17.9 Acute kidney failure, unspecified; I25.10 Atherosclerotic heart disease of native coronary artery without angina pectoris; J44.9 Chronic obstructive pulmonary disease, unspecified; N18.32 Chronic kidney disease, stage 3b; E11.22 Type 2 diabetes mellitus with diabetic chronic kidney disease; N40.1 Benign prostatic hyperplasia with lower urinary tract symptoms; E78.5 Hyperlipidemia, unspecified; H40.9 Unspecified glaucoma; D50.9 Iron deficiency anemia, unspecified; I48.91 Unspecified atrial fibrillation; E11.51 Type 2 diabetes mellitus with diabetic peripheral angiopathy without gangrene; E87.5 Hyperkalemia; D69.6 Thrombocytopenia, unspecified; I34.0 Nonrheumatic mitral (valve) insufficiency; I27.20 Pulmonary hypertension, unspecified; R31.0 Gross hematuria; N32.0 Bladder-neck obstruction; D63.1 Anemia in chronic kidney disease; Z95.820 Peripheral vascular angioplasty status with implants and grafts; Z95.828 Presence of other vascular implants and grafts; Z95.1 Presence of aortocoronary bypass graft; Z87.891 Personal history of nicotine dependence; Z79.84 Long term (current) use of oral hypoglycemic drugs; Z79.82 Long term (current) use of aspirin; Z79.899 Other long term (current) drug therapy; Z91.018 Allergy to other foods; Z91.030 Bee allergy status

== ENCOUNTER → 2025-02-09 | Outpatient (CLI) | payer MEDICARE, OTHER ==
[~2025-02-09] MED LIST changes: +BUDE0.5S6 NEB; +CIPR500T39 PO; +ELIQ5TAB PO; +ERGO125013 PO; +FERR1TAB8 PO; +FURO80TA2 PO; +INSULANT INJ; +LOSA50TA28 PO; -METF-1113 PO; +METF-1201 PO; +METO1TAB32 PO
[2025-02-09 15:26] LABS: PLATELET COUNT, AUTOMATED 263 10^3/uL (150-450)
[2025-02-09 15:29] LABS: ALT/SGPT 55 U/L (7.0-40); AST/SGOT 50 U/L (<34); CALCIUM LEVEL 9.2 MG/DL (8.3-10.6); CARBON DIOXIDE LEVEL 31 MMOL/L (20-31); CHLORIDE LEVEL 96 MMOL/L (98-107); CHOLESTEROL LEVEL 180 MG/DL (<200); CHOLESTEROL RISK RATIO 3.93 (<5); CREATININE FOR GFR 2.28 MG/DL (0.70-1.30); GLOMERULAR FILTRATION RATE 26.9 (>35); LDL CHOLESTEROL 102.4 MG/DL (<100); NON-HDL-C 134.2 MG/DL; POTASSIUM SERUM 3.6 MMOL/L (3.5-5.1); SODIUM LEVEL 138 MMOL/L (136-145); TRIGLYCERIDES LEVEL 159 MG/DL (<150)
[2025-02-09 15:31] LABS: TOTAL 25(OH) VITAMIN D 31.7 NG/ML (20.0-100.0)
[2025-02-09 15:36] LABS: VITAMIN B12 LEVEL > 2000 PG/ML (211-911)
[2025-02-09 15:54] LABS: ESTIMATED AVERAGE GLUCOSE 169.0 MG/DL (60-110)
== END ==
LOC: M PLALAB 12:41
PROVIDERS: ATTEND Family Medicine
DX: E53.8 Deficiency of other specified B group vitamins (principal); I12.9 Hypertensive chronic kidney disease with stage 1 through stage 4 chronic kidney disease, or unspecified chronic kidney disease; E11.21 Type 2 diabetes mellitus with diabetic nephropathy; E55.9 Vitamin D deficiency, unspecified; E78.00 Pure hypercholesterolemia, unspecified; N18.32 Chronic kidney disease, stage 3b

== ENCOUNTER → 2025-02-09 | Outpatient (REF) | payer MEDICARE, OTHER | LOC: M SFHCPLAZ 11:48 | PROVIDERS: ATTEND Family Medicine | DX: Z53.9 Procedure and treatment not carried out, unspecified reason (principal) ==

== ENCOUNTER 2025-03-07 19:59 | Inpatient (IN) | payer MEDICARE, OTHER ==
[~2025-03-07] VITALS: Ht 177.8 cm; Wt 88.6 kg
[~2025-03-07 19:59] MED LIST changes: -ROSU10TA61 PO; +ROSU10TA90 PO
[2025-03-07 20:36] LABS: BASO # 0.0 10^3/uL (0.0-0.2); BASO % 0.3 % (0.0-1.0); EOS # 0.2 10^3/uL (0.0-0.5); EOS % 1.9 % (0.0-3.0); LYMPH # 1.1 10^3/uL (1.5-5.0); LYMPH % 12.3 % (24.0-44.0); MONO # 0.7 10^3/uL (0.0-0.8); MONO % 7.8 % (2.0-8.0); NEUTROPHILS # 6.9 10^3/uL (1.5-8.5); NEUTROPHILS % 77.1 % (36.0-66.0); PLATELET COUNT, AUTOMATED 169 10^3/uL (150-450)
[2025-03-07 21:22] LABS: ALT/SGPT 69.0 U/L (7.0-40); AST/SGOT 53.0 U/L (<34); CALCIUM LEVEL 8.9 MG/DL (8.3-10.6); CHLORIDE LEVEL 100.0 MMOL/L (98-107); CREATININE FOR GFR 3.09 MG/DL (0.70-1.30); GLOMERULAR FILTRATION RATE 18.7 (>35); POTASSIUM SERUM 4.6 MMOL/L (3.5-5.1); SODIUM LEVEL 140.0 MMOL/L (136-145)
[2025-03-07 21:52] LABS: CARBON DIOXIDE LEVEL 26.0 MMOL/L (20-31)
[2025-03-07 22:46] LABS: CPK CREATINE PHOSPHOKINASE 220.0 U/L (46-171)
[2025-03-07 22:47] LABS: CK-MB VALUE MASS 6.7 NG/ML (<3.6); MB/CK RELATIVE INDEX 3.04 (< OR =4)
[2025-03-07] MEDS: METOPROLOL TART 25 MG TABLET PO ONE (23:18)
[2025-03-08] VITALS (11 sets, daily range): BP systolic 91–110; BP diastolic 52–73; TEMP 97–97.3; O2SAT 92–100
[2025-03-08 00:10] LABS: CK-MB VALUE MASS 5.8 NG/ML (<3.6)
[2025-03-08 00:13] LABS: CPK CREATINE PHOSPHOKINASE 210.0 U/L (46-171); MB/CK RELATIVE INDEX 2.76 (< OR =4)
[2025-03-08] MEDS ORDERED: GLUCAGON INJ 1 MG VIAL SC PRN (02:20)
[2025-03-08] MEDS ORDERED: GLUCOSE 4 GM CHEW PO PRN (02:20)
[2025-03-08] MEDS ORDERED: DEXTROSE 50% 50 ML SYRINGE IV PRN (02:20)
[2025-03-08] MEDS: LEVALBUTEROL 1.25 MG 0.5ML CONCENTRATE NEB NEB SCH (02:46)
[2025-03-08 05:41] LABS: BASO # 0.0 10^3/uL (0.0-0.2); BASO % 0.1 % (0.0-1.0); EOS # 0.0 10^3/uL (0.0-0.5); EOS % 0.1 % (0.0-3.0); LYMPH # 0.4 10^3/uL (1.5-5.0); LYMPH % 4.9 % (24.0-44.0); MONO # 0.1 10^3/uL (0.0-0.8); MONO % 1.3 % (2.0-8.0); NEUTROPHILS # 6.7 10^3/uL (1.5-8.5); NEUTROPHILS % 93.0 % (36.0-66.0); PLATELET COUNT, AUTOMATED 173 10^3/uL (150-450)
[2025-03-08 06:13] LABS: ALT/SGPT 77.0 U/L (7.0-40); AST/SGOT 63.0 U/L (<34); CALCIUM LEVEL 8.8 MG/DL (8.3-10.6); CARBON DIOXIDE LEVEL 24.0 MMOL/L (20-31); CHLORIDE LEVEL 97.0 MMOL/L (98-107); CREATININE FOR GFR 3.08 MG/DL (0.70-1.30); GLOMERULAR FILTRATION RATE 18.8 (>35); MAGNESIUM LEVEL 2.4 MG/DL (1.8-2.4); POTASSIUM SERUM 5.3 MMOL/L (3.5-5.1); SODIUM LEVEL 136.0 MMOL/L (136-145)
[2025-03-08] MEDS ORDERED: METOPROLOL TART 25 MG TABLET PO ONE (07:00)
[2025-03-08] MEDS ORDERED: APIXABAN 5 MG TAB PO SCH (09:00)
[2025-03-08] MEDS ORDERED: FUROSEMIDE 40 MG/4 ML VIAL IV SCH (09:00)
[2025-03-08] MEDS ORDERED: FUROSEMIDE 100 MG/10 ML VIAL IV SCH (09:00)
[2025-03-08] MEDS: INSULIN LISPRO (NovoLOG) PER UNIT SC SCH ×2 (09:16→20:47)
[2025-03-08] MEDS: LanTUS (INSULIN GLARGINE INJ) 1 UNITS/0.01 ML SC SCH (09:16)
[2025-03-08] MEDS: FUROSEMIDE 100 MG/10 ML VIAL IV SCH (09:16)
[2025-03-08] MEDS: METOPROLOL SUCC. 25 MG *XL* TAB PO SCH (09:17)
[2025-03-08] MEDS ORDERED: THERTAB52 PO (09:35)
[2025-03-08] MEDS ORDERED: ELIQ5TAB PO (09:35)
[2025-03-08] MEDS ORDERED: FURO80TA2 PO (09:35)
[2025-03-08] MEDS ORDERED: VENTAER INH (09:37)
[2025-03-08] MEDS ORDERED: LANTINJ4 SC (09:37)
[2025-03-08] MEDS ORDERED: HOME MED LIST COMPLETE! XX SCH (09:40)
[2025-03-08] MEDS: APIXABAN 2.5 MG TAB PO SCH (10:04)
[2025-03-08] MEDS: LEVALBUTEROL 1.25 MG 0.5ML CONCENTRATE NEB NEB PRN (10:08)
[2025-03-08] MEDS ORDERED: PILL CUTTER 1 EACH XX PRN (13:25)
[2025-03-08] MEDS ORDERED: LanTUS (INSULIN GLARGINE INJ) 1 UNITS/0.01 ML SC ONE (13:45)
[2025-03-08] MEDS ORDERED: FLUTICASONE PROPIONATE 0.05% NASAL SPRAY 16 GM PRN (13:45)
[2025-03-08] MEDS: AMIODARONE HCL 150 MG in IV 1 EA IV SCH (14:22)
[2025-03-08] MEDS: FERROUS SULFATE 325 MG TAB PO SCH (14:23)
[2025-03-08] MEDS: AMIODARONE HCL 360 MG in IV 1 EA IV SCH ×2 (14:34→20:46)
[2025-03-08] MEDS ORDERED: METOPROLOL SUCC *XL* 12.5 MG PER 1/2 TAB PO ONE (15:00)
[2025-03-08] MEDS: SYMBICORT 160/4.5MCG INHALER 6GM INH SCH (19:52)
[2025-03-08] MEDS: BUDESONIDE 0.5 MG/2 ML INHALATION SUSPENSION NEB SCH (19:52)
[2025-03-08] MEDS: ROSUVASTATIN 10 MG TAB PO SCH (20:46)
[2025-03-08] MEDS: LATANOPROST 0.005% OPHTH SOLN 2.5 ML OU SCH (20:46)
[2025-03-08] MEDS: TAMSULOSIN 0.4 MG CAP PO SCH (20:46)
[2025-03-08] MEDS: METOPROLOL TART 12.5 MG PER 1/2 TAB PO SCH (20:53)
[2025-03-08] MEDS: RAMELTEON 8 MG TAB PO ONE (23:21)
[2025-03-09] VITALS (39 sets, daily range): BP systolic 68–112; BP diastolic 44–65; TEMP 96.7–97.6; O2SAT 83–99
[2025-03-09] MEDS: ONDANSETRON 4MG/2ML VIAL IV PRN (02:46)
[2025-03-09 04:04] LABS: BASO # 0.0 10^3/uL (0.0-0.2); BASO % 0.1 % (0.0-1.0); EOS # 0.0 10^3/uL (0.0-0.5); EOS % 0.0 % (0.0-3.0); LYMPH # 0.7 10^3/uL (1.5-5.0); LYMPH % 5.7 % (24.0-44.0); MONO # 1.0 10^3/uL (0.0-0.8); MONO % 7.8 % (2.0-8.0); NEUTROPHILS # 11.0 10^3/uL (1.5-8.5); NEUTROPHILS % 85.8 % (36.0-66.0); PLATELET COUNT, AUTOMATED 156 10^3/uL (150-450)
[2025-03-09 04:39] LABS: CALCIUM LEVEL 8.9 MG/DL (8.3-10.6); CARBON DIOXIDE LEVEL 24.0 MMOL/L (20-31); CHLORIDE LEVEL 96.0 MMOL/L (98-107); CREATININE FOR GFR 3.75 MG/DL (0.70-1.30); GLOMERULAR FILTRATION RATE 14.8 (>35); MAGNESIUM LEVEL 2.5 MG/DL (1.8-2.4); POTASSIUM SERUM 4.8 MMOL/L (3.5-5.1); SODIUM LEVEL 136.0 MMOL/L (136-145)
[2025-03-09] MEDS: NS 500 ML IV ONE ×2 (07:38→08:27)
[2025-03-09] MEDS ORDERED: LanTUS (INSULIN GLARGINE INJ) 1 UNITS/0.01 ML SC SCH (09:00)
[2025-03-09] MEDS ORDERED: METOPROLOL SUCC. 25 MG *XL* TAB PO SCH ×2 (09:00)
[2025-03-09] MEDS: FLUZONE HIGH DOSE (65+) 0.5 ML SYRINGE (25-26) IM.IMMUN ONE (09:40)
[2025-03-09] MEDS: AMIODARONE 200 MG TAB PO SCH (20:27)
[2025-03-10] VITALS (33 sets, daily range): BP systolic 72–107; BP diastolic 40–62; TEMP 97.2–98.3; O2SAT 87–98
[2025-03-10 05:45] LABS: BASO # 0.0 10^3/uL (0.0-0.2); BASO % 0.1 % (0.0-1.0); EOS # 0.0 10^3/uL (0.0-0.5); EOS % 0.2 % (0.0-3.0); LYMPH # 0.8 10^3/uL (1.5-5.0); LYMPH % 7.6 % (24.0-44.0); MONO # 0.7 10^3/uL (0.0-0.8); MONO % 6.9 % (2.0-8.0); NEUTROPHILS # 8.9 10^3/uL (1.5-8.5); NEUTROPHILS % 84.6 % (36.0-66.0); PLATELET COUNT, AUTOMATED 163 10^3/uL (150-450)
[2025-03-10 06:19] LABS: CALCIUM LEVEL 8.3 MG/DL (8.3-10.6); CARBON DIOXIDE LEVEL 25.0 MMOL/L (20-31); CHLORIDE LEVEL 97.0 MMOL/L (98-107); CREATININE FOR GFR 4.52 MG/DL (0.70-1.30); GLOMERULAR FILTRATION RATE 11.8 (>35); MAGNESIUM LEVEL 2.5 MG/DL (1.8-2.4); POTASSIUM SERUM 5.4 MMOL/L (3.5-5.1); SODIUM LEVEL 137.0 MMOL/L (136-145)
[2025-03-10] MEDS: PATIROMER SORBITEX CALCIUM 8.4GM POWDER PACKET PO ONE (07:44)
[2025-03-10] MEDS: LanTUS (INSULIN GLARGINE INJ) 1 UNITS/0.01 ML SC SCH (07:45)
[2025-03-10] MEDS: SODIUM CHLORIDE 0.9% 1000 ML IV ONE (07:47)
[2025-03-10] MEDS: NS 500 ML IV ONE (08:04)
[2025-03-10] MEDS: PATIROMER SORBITEX CALCIUM 8.4GM POWDER PACKET PO SCH (11:41)
[2025-03-11] VITALS (33 sets, daily range): BP systolic 102–133; BP diastolic 51–86; TEMP 97.3–98.7; O2SAT 90–97
[2025-03-11 05:25] LABS: BASO # 0.0 10^3/uL (0.0-0.2); BASO % 0.0 % (0.0-1.0); EOS # 0.0 10^3/uL (0.0-0.5); EOS % 0.4 % (0.0-3.0); LYMPH # 0.6 10^3/uL (1.5-5.0); LYMPH % 7.5 % (24.0-44.0); MONO # 0.8 10^3/uL (0.0-0.8); MONO % 8.8 % (2.0-8.0); NEUTROPHILS # 7.0 10^3/uL (1.5-8.5); NEUTROPHILS % 82.7 % (36.0-66.0); PLATELET COUNT, AUTOMATED 157 10^3/uL (150-450)
[2025-03-11 05:43] LABS: CALCIUM LEVEL 8.3 MG/DL (8.3-10.6); CARBON DIOXIDE LEVEL 22.0 MMOL/L (20-31); CHLORIDE LEVEL 100.0 MMOL/L (98-107); CREATININE FOR GFR 4.86 MG/DL (0.70-1.30); GLOMERULAR FILTRATION RATE 10.9 (>35); MAGNESIUM LEVEL 2.4 MG/DL (1.8-2.4); POTASSIUM SERUM 4.9 MMOL/L (3.5-5.1); SODIUM LEVEL 138.0 MMOL/L (136-145)
[2025-03-11] MEDS: MOM 30 ML SUSPENSION UDC PO ONE (20:38)
[2025-03-11] MEDS: SENNA 8.6 MG TAB PO SCH (20:38)
[2025-03-11] MEDS: DOCUSATE SODIUM 100 MG CAPSULE PO SCH (20:38)
[2025-03-12] VITALS (29 sets, daily range): BP systolic 107–127; BP diastolic 57–69; TEMP 97.2–97.7; O2SAT 91–97
[2025-03-12] MEDS: RAMELTEON 8 MG TAB PO ONE (01:14)
[2025-03-12 05:30] LABS: BASO # 0.0 10^3/uL (0.0-0.2); BASO % 0.0 % (0.0-1.0); EOS # 0.1 10^3/uL (0.0-0.5); EOS % 0.8 % (0.0-3.0); LYMPH # 0.6 10^3/uL (1.5-5.0); LYMPH % 8.4 % (24.0-44.0); MONO # 0.6 10^3/uL (0.0-0.8); MONO % 8.9 % (2.0-8.0); NEUTROPHILS # 5.3 10^3/uL (1.5-8.5); NEUTROPHILS % 81.4 % (36.0-66.0); PLATELET COUNT, AUTOMATED 129 10^3/uL (150-450)
[2025-03-12 05:57] LABS: CALCIUM LEVEL 8.2 MG/DL (8.3-10.6); CARBON DIOXIDE LEVEL 24.0 MMOL/L (20-31); CHLORIDE LEVEL 101.0 MMOL/L (98-107); CREATININE FOR GFR 4.79 MG/DL (0.70-1.30); GLOMERULAR FILTRATION RATE 11.1 (>35); MAGNESIUM LEVEL 2.5 MG/DL (1.8-2.4); POTASSIUM SERUM 4.3 MMOL/L (3.5-5.1); SODIUM LEVEL 139.0 MMOL/L (136-145)
[2025-03-12] MEDS: FUROSEMIDE 40 MG TAB PO ONE (11:11)
[2025-03-13] VITALS (27 sets, daily range): BP systolic 100–125; BP diastolic 56–65; TEMP 97.4–98.5; O2SAT 81–100
[2025-03-13 00:24] LABS: BASO # 0.0 10^3/uL (0.0-0.2); BASO % 0.0 % (0.0-1.0); EOS # 0.1 10^3/uL (0.0-0.5); EOS % 0.9 % (0.0-3.0); LYMPH # 0.4 10^3/uL (1.5-5.0); LYMPH % 5.6 % (24.0-44.0); MONO # 0.6 10^3/uL (0.0-0.8); MONO % 8.1 % (2.0-8.0); NEUTROPHILS # 6.5 10^3/uL (1.5-8.5); NEUTROPHILS % 84.9 % (36.0-66.0); PLATELET COUNT, AUTOMATED 129 10^3/uL (150-450)
[2025-03-13 00:43] LABS: ALT/SGPT 278.0 U/L (7.0-40); AST/SGOT 85.0 U/L (<34); CALCIUM LEVEL 8.5 MG/DL (8.3-10.6); CARBON DIOXIDE LEVEL 23.0 MMOL/L (20-31); CHLORIDE LEVEL 101.0 MMOL/L (98-107); CREATININE FOR GFR 4.73 MG/DL (0.70-1.30); GLOMERULAR FILTRATION RATE 11.2 (>35); POTASSIUM SERUM 4.4 MMOL/L (3.5-5.1); SODIUM LEVEL 139.0 MMOL/L (136-145)
[2025-03-13 05:51] LABS: BASO # 0.0 10^3/uL (0.0-0.2); BASO % 0.1 % (0.0-1.0); EOS # 0.1 10^3/uL (0.0-0.5); EOS % 1.3 % (0.0-3.0); LYMPH # 0.5 10^3/uL (1.5-5.0); LYMPH % 6.1 % (24.0-44.0); MONO # 0.6 10^3/uL (0.0-0.8); MONO % 7.4 % (2.0-8.0); NEUTROPHILS # 7.1 10^3/uL (1.5-8.5); NEUTROPHILS % 84.6 % (36.0-66.0); PLATELET COUNT, AUTOMATED 125 10^3/uL (150-450)
[2025-03-13 06:18] LABS: CALCIUM LEVEL 8.6 MG/DL (8.3-10.6); CARBON DIOXIDE LEVEL 23 MMOL/L (20-31); CHLORIDE LEVEL 104 MMOL/L (98-107); CREATININE FOR GFR 4.71 MG/DL (0.70-1.30); GLOMERULAR FILTRATION RATE 11.3 (>35); IRON (FE) 25 UG/DL (65-175); MAGNESIUM LEVEL 2.4 MG/DL (1.8-2.4); PERCENT SATURATION 10.7 % (19.7-50.0); POTASSIUM SERUM 4.4 MMOL/L (3.5-5.1); SODIUM LEVEL 139 MMOL/L (136-145)
[2025-03-13 06:20] LABS: HEPATITIS B SURFACE ANTIBODY NEGATIVE (POSITIVE)
[2025-03-13 06:52] LABS: HEPATITIS C VIRUS ABY INDEX 0.02 INDEX (<0.8)
[2025-03-13] MEDS: LanTUS (INSULIN GLARGINE INJ) 1 UNITS/0.01 ML SC SCH (08:14)
[2025-03-13] MEDS: FUROSEMIDE 80 MG TAB PO SCH (08:19)
[2025-03-13] MEDS: SOLIFENACIN 5 MG TAB PO SCH (13:40)
[2025-03-13 15:04] LABS: PLATELET COUNT, AUTOMATED 127 10^3/uL (150-450)
[2025-03-13 21:42] LABS: PLATELET COUNT, AUTOMATED 139 10^3/uL (150-450)
[2025-03-13] MEDS: ACETAMINOPHEN *IV* 1,000 MG in IV 1 EA IV ONE (22:16)
[2025-03-14] VITALS (30 sets, daily range): BP systolic 98–184; BP diastolic 53–70; TEMP 97.4–101.1; O2SAT 91–98
[2025-03-14] MEDS: SODIUM CHLORIDE 0.9% 1000 ML IV ONE (00:30)
[2025-03-14 05:56] LABS: BASO # 0.0 10^3/uL (0.0-0.2); BASO % 0.1 % (0.0-1.0); EOS # 0.0 10^3/uL (0.0-0.5); EOS % 0.3 % (0.0-3.0); LYMPH # 0.4 10^3/uL (1.5-5.0); LYMPH % 2.9 % (24.0-44.0); MONO # 0.9 10^3/uL (0.0-0.8); MONO % 7.1 % (2.0-8.0); NEUTROPHILS # 11.2 10^3/uL (1.5-8.5); NEUTROPHILS % 89.0 % (36.0-66.0); PLATELET COUNT, AUTOMATED 111 10^3/uL (150-450)
[2025-03-14] MEDS ORDERED: HEPARIN 1,000 UNITS/ML 10 ML VIAL (FOR RADIOLOGY & DIALYSIS ONLY) IV PRN ×2 (06:00→12:05)
[2025-03-14] MEDS ORDERED: SODIUM CHLORIDE 0.9% 1000 ML IV PRN (06:00)
[2025-03-14] MEDS ORDERED: HEPARIN 1,000 UNITS/ML 10 ML VIAL (FOR RADIOLOGY & DIALYSIS ONLY) XX SCH (06:00)
[2025-03-14 06:24] LABS: CALCIUM LEVEL 8.0 MG/DL (8.3-10.6); CARBON DIOXIDE LEVEL 23.0 MMOL/L (20-31); CHLORIDE LEVEL 104.0 MMOL/L (98-107); CREATININE FOR GFR 4.76 MG/DL (0.70-1.30); GLOMERULAR FILTRATION RATE 11.1 (>35); MAGNESIUM LEVEL 2.1 MG/DL (1.8-2.4); POTASSIUM SERUM 4.3 MMOL/L (3.5-5.1); SODIUM LEVEL 140.0 MMOL/L (136-145)
[2025-03-14 09:26] LABS: KETONE, URINE AUTO RFX NEGATIVE (NEGATIVE); LEUKOCYTE ESTERASE UR AUTO RFX 2+ (NEGATIVE); MUCUS, URINE RFX SMALL (NEGATIVE); NITRITE, URINE AUTO RFX NEGATIVE (NEGATIVE); RBC, URINE AUTO RFX TNTC /HPF (0-3); SQUAM EPITHELIAL CELL UR AURFX 3 /HPF (0-6); WBC, URINE AUTO RFX TNTC /HPF (0-3)
[2025-03-14 09:54] LABS: C REACTIVE PROTEIN QUANTITATIV 6.28 MG/DL (<1.0)
[2025-03-14] MEDS: LIDOCAINE 1% MDV 20 ML VIAL SC SCH (12:05)
[2025-03-14] MEDS: CEPHALEXIN 500 MG CAP PO ONE (12:26)
[2025-03-14] MEDS: cefTRIAXone SOD 1 GM in DEXTROSE 5% (D5W) ADV/MINI-BAG 50 ML IV SCH (13:40)
[2025-03-15] VITALS (30 sets, daily range): BP systolic 94–117; BP diastolic 57–70; TEMP 97.2–98.7; O2SAT 85–99
[2025-03-15] MEDS: ACETAMINOPHEN *IV* 1,000 MG in IV 1 EA IV ONE (00:43)
[2025-03-15 05:55] LABS: BASO # 0.0 10^3/uL (0.0-0.2); BASO % 0.0 % (0.0-1.0); EOS # 0.2 10^3/uL (0.0-0.5); EOS % 2.2 % (0.0-3.0); LYMPH # 0.6 10^3/uL (1.5-5.0); LYMPH % 8.4 % (24.0-44.0); MONO # 0.7 10^3/uL (0.0-0.8); MONO % 10.7 % (2.0-8.0); NEUTROPHILS # 5.3 10^3/uL (1.5-8.5); NEUTROPHILS % 78.3 % (36.0-66.0); PLATELET COUNT, AUTOMATED 116 10^3/uL (150-450)
[2025-03-15] MEDS ORDERED: HEPARIN 1,000 UNITS/ML 10 ML VIAL (FOR RADIOLOGY & DIALYSIS ONLY) IV PRN (06:00)
[2025-03-15] MEDS ORDERED: SODIUM CHLORIDE 0.9% 1000 ML IV PRN (06:00)
[2025-03-15 06:25] LABS: CALCIUM LEVEL 7.8 MG/DL (8.3-10.6); CARBON DIOXIDE LEVEL 22.0 MMOL/L (20-31); CHLORIDE LEVEL 103.0 MMOL/L (98-107); CREATININE FOR GFR 4.76 MG/DL (0.70-1.30); GLOMERULAR FILTRATION RATE 11.1 (>35); MAGNESIUM LEVEL 2.2 MG/DL (1.8-2.4); POTASSIUM SERUM 4.1 MMOL/L (3.5-5.1); SODIUM LEVEL 138.0 MMOL/L (136-145)
[2025-03-15] MEDS: HEPARIN 1,000 UNITS/ML 10 ML VIAL (FOR RADIOLOGY & DIALYSIS ONLY) XX SCH (10:14)
[2025-03-15] MEDS: AMPICILLIN SOD 2 GM in DEXTROSE 5% (D5W) MINI-BAG PLU 100 ML IV SCH (12:27)
[2025-03-16] VITALS (23 sets, daily range): BP systolic 114–135; BP diastolic 58–69; TEMP 97.4–98.8; O2SAT 91–98
[2025-03-16] MEDS: ACETAMINOPHEN *IV* 500 MG in IV 1 EA IV ONE (00:28)
[2025-03-16 05:44] LABS: BASO # 0.0 10^3/uL (0.0-0.2); BASO % 0.2 % (0.0-1.0); EOS # 0.2 10^3/uL (0.0-0.5); EOS % 2.8 % (0.0-3.0); LYMPH # 0.5 10^3/uL (1.5-5.0); LYMPH % 7.5 % (24.0-44.0); MONO # 0.7 10^3/uL (0.0-0.8); MONO % 12.0 % (2.0-8.0); NEUTROPHILS # 4.7 10^3/uL (1.5-8.5); NEUTROPHILS % 76.8 % (36.0-66.0); PLATELET COUNT, AUTOMATED 103 10^3/uL (150-450)
[2025-03-16] MEDS ORDERED: SODIUM CHLORIDE 0.9% 1000 ML IV PRN (06:00)
[2025-03-16] MEDS ORDERED: HEPARIN 1,000 UNITS/ML 10 ML VIAL (FOR RADIOLOGY & DIALYSIS ONLY) XX SCH (06:00)
[2025-03-16 06:19] LABS: CALCIUM LEVEL 7.9 MG/DL (8.3-10.6); CARBON DIOXIDE LEVEL 24.0 MMOL/L (20-31); CHLORIDE LEVEL 101.0 MMOL/L (98-107); CREATININE FOR GFR 3.56 MG/DL (0.70-1.30); GLOMERULAR FILTRATION RATE 15.8 (>35); POTASSIUM SERUM 3.7 MMOL/L (3.5-5.1); SODIUM LEVEL 138.0 MMOL/L (136-145)
[2025-03-16] MEDS: HEPARIN 1,000 UNITS/ML 10 ML VIAL (FOR RADIOLOGY & DIALYSIS ONLY) IV PRN (13:36)
[2025-03-17] VITALS (14 sets, daily range): BP systolic 99–130; BP diastolic 55–59; TEMP 97.4–98.6; O2SAT 92–99
[2025-03-17] MEDS: RAMELTEON 8 MG TAB PO ONE (02:08)
[2025-03-17 05:47] LABS: BASO # 0.0 10^3/uL (0.0-0.2); BASO % 0.2 % (0.0-1.0); EOS # 0.1 10^3/uL (0.0-0.5); EOS % 2.6 % (0.0-3.0); LYMPH # 0.5 10^3/uL (1.5-5.0); LYMPH % 8.6 % (24.0-44.0); MONO # 0.6 10^3/uL (0.0-0.8); MONO % 10.2 % (2.0-8.0); NEUTROPHILS # 4.3 10^3/uL (1.5-8.5); NEUTROPHILS % 78.0 % (36.0-66.0); PLATELET COUNT, AUTOMATED 110 10^3/uL (150-450)
[2025-03-17] MEDS ORDERED: HEPARIN 1,000 UNITS/ML 10 ML VIAL (FOR RADIOLOGY & DIALYSIS ONLY) IV PRN (06:00)
[2025-03-17] MEDS ORDERED: SODIUM CHLORIDE 0.9% 1000 ML IV PRN (06:00)
[2025-03-17 06:21] LABS: CALCIUM LEVEL 7.9 MG/DL (8.3-10.6); CARBON DIOXIDE LEVEL 26.0 MMOL/L (20-31); CHLORIDE LEVEL 102.0 MMOL/L (98-107); CREATININE FOR GFR 3.09 MG/DL (0.70-1.30); GLOMERULAR FILTRATION RATE 18.7 (>35); POTASSIUM SERUM 4.0 MMOL/L (3.5-5.1); SODIUM LEVEL 138.0 MMOL/L (136-145)
[2025-03-17] MEDS: DARBEPOETIN 100 MCG/0.5 ML *DIALYSIS* SYRINGE IV SCH (13:26)
[2025-03-17] MEDS: HEPARIN 1,000 UNITS/ML 10 ML VIAL (FOR RADIOLOGY & DIALYSIS ONLY) XX SCH (13:27)
[2025-03-17] MEDS: IRON SUCROSE 100 MG/5 ML VIAL IV SCH (14:13)
[2025-03-18 05:04] VITALS: BP 108/70; TEMP 98.1; O2SAT 96
[2025-03-18 06:28] LABS: BASO # 0.0 10^3/uL (0.0-0.2); BASO % 0.2 % (0.0-1.0); EOS # 0.1 10^3/uL (0.0-0.5); EOS % 2.7 % (0.0-3.0); LYMPH # 0.5 10^3/uL (1.5-5.0); LYMPH % 9.9 % (24.0-44.0); MONO # 0.5 10^3/uL (0.0-0.8); MONO % 10.3 % (2.0-8.0); NEUTROPHILS # 4.0 10^3/uL (1.5-8.5); NEUTROPHILS % 76.3 % (36.0-66.0); PLATELET COUNT, AUTOMATED 113 10^3/uL (150-450)
[2025-03-18 06:53] LABS: CALCIUM LEVEL 7.8 MG/DL (8.3-10.6); CARBON DIOXIDE LEVEL 29.0 MMOL/L (20-31); CHLORIDE LEVEL 99.0 MMOL/L (98-107); CREATININE FOR GFR 2.54 MG/DL (0.70-1.30); GLOMERULAR FILTRATION RATE 23.7 (>35); POTASSIUM SERUM 3.7 MMOL/L (3.5-5.1); SODIUM LEVEL 137.0 MMOL/L (136-145)
[2025-03-18] MEDS: AMOXICILLIN 500 MG CAP PO SCH (09:36)
[2025-03-18 12:00] VITALS: BP 115/57; TEMP 98; O2SAT 95
[2025-03-18] MEDS ORDERED: SENNA 8.6 MG TAB PO PRN (15:30)
[2025-03-18 19:57] VITALS: BP 103/56; TEMP 98.4; O2SAT 95
[2025-03-18] MEDS: ALBUTEROL SULFATE 2.5 MG/0.5 ML INH CONCENTRATE NEB SOLN NEB PRN (19:57)
[2025-03-19 04:21] VITALS: BP 101/56; TEMP 97.9; O2SAT 96
[2025-03-19] MEDS ORDERED: HEPARIN 1,000 UNITS/ML 10 ML VIAL (FOR RADIOLOGY & DIALYSIS ONLY) XX SCH (06:00)
[2025-03-19] MEDS ORDERED: SODIUM CHLORIDE 0.9% 1000 ML IV PRN (06:00)
[2025-03-19 07:50] LABS: BASO # 0.0 10^3/uL (0.0-0.2); BASO % 0.3 % (0.0-1.0); EOS # 0.2 10^3/uL (0.0-0.5); EOS % 2.6 % (0.0-3.0); LYMPH # 0.6 10^3/uL (1.5-5.0); LYMPH % 10.0 % (24.0-44.0); MONO # 0.6 10^3/uL (0.0-0.8); MONO % 9.2 % (2.0-8.0); NEUTROPHILS # 4.7 10^3/uL (1.5-8.5); NEUTROPHILS % 76.9 % (36.0-66.0); PLATELET COUNT, AUTOMATED 116 10^3/uL (150-450)
[2025-03-19 08:15] LABS: CALCIUM LEVEL 7.9 MG/DL (8.3-10.6); CARBON DIOXIDE LEVEL 26.0 MMOL/L (20-31); CHLORIDE LEVEL 100.0 MMOL/L (98-107); CREATININE FOR GFR 3.51 MG/DL (0.70-1.30); GLOMERULAR FILTRATION RATE 16.0 (>35); POTASSIUM SERUM 3.9 MMOL/L (3.5-5.1); SODIUM LEVEL 138.0 MMOL/L (136-145)
[2025-03-19] MEDS: HEPARIN 1,000 UNITS/ML 10 ML VIAL (FOR RADIOLOGY & DIALYSIS ONLY) IV PRN (09:58)
[2025-03-19 20:51] VITALS: BP 98/54; TEMP 97.9; O2SAT 95
[2025-03-20 05:10] VITALS: BP 104/60; TEMP 97.9; O2SAT 96
[2025-03-20] MEDS: guaiFENesin ER TABLET 600 MG TAB PO SCH (11:50)
[2025-03-21] MEDS: ACETAMINOPHEN 325 MG TAB PO PRN (00:22)
[2025-03-21 04:26] VITALS: BP 104/61; TEMP 98.1; O2SAT 96
[2025-03-21] MEDS ORDERED: SODIUM CHLORIDE 0.9% 1000 ML IV PRN (06:00)
[2025-03-21] MEDS ORDERED: HEPARIN 1,000 UNITS/ML 10 ML VIAL (FOR RADIOLOGY & DIALYSIS ONLY) IV PRN (06:00)
[2025-03-21] MEDS: HEPARIN 1,000 UNITS/ML 10 ML VIAL (FOR RADIOLOGY & DIALYSIS ONLY) XX SCH (08:39)
[2025-03-21 12:00] VITALS: BP 106/60; TEMP 98.2; O2SAT 99
[2025-03-22 03:52] VITALS: BP 103/58; TEMP 97.9; O2SAT 92
[2025-03-22 06:30] LABS: BASO # 0.0 10^3/uL (0.0-0.2); BASO % 0.3 % (0.0-1.0); EOS # 0.2 10^3/uL (0.0-0.5); EOS % 2.8 % (0.0-3.0); LYMPH # 0.7 10^3/uL (1.5-5.0); LYMPH % 12.6 % (24.0-44.0); MONO # 0.5 10^3/uL (0.0-0.8); MONO % 8.0 % (2.0-8.0); NEUTROPHILS # 4.3 10^3/uL (1.5-8.5); NEUTROPHILS % 75.4 % (36.0-66.0); PLATELET COUNT, AUTOMATED 130 10^3/uL (150-450)
[2025-03-22 07:01] LABS: CALCIUM LEVEL 8.3 MG/DL (8.3-10.6); CARBON DIOXIDE LEVEL 30.0 MMOL/L (20-31); CHLORIDE LEVEL 99.0 MMOL/L (98-107); CREATININE FOR GFR 2.98 MG/DL (0.70-1.30); GLOMERULAR FILTRATION RATE 19.5 (>35); POTASSIUM SERUM 3.8 MMOL/L (3.5-5.1); SODIUM LEVEL 137.0 MMOL/L (136-145)
[2025-03-22] MEDS: MOM 30 ML SUSPENSION UDC PO PRN (08:47)
[2025-03-22] MEDS ORDERED: AMIO200T54 PO (10:28)
[2025-03-22] MEDS ORDERED: OXYB5TAB14 PO (10:28)
[2025-03-22] MEDS ORDERED: AMOX500C PO (10:28)
[2025-03-22] MEDS ORDERED: NOVO32MI SC (13:44)
== END 2025-03-22 14:12 | disposition home health service (06) | DRG 673 ==
LOC: M ED 19:59 → M ED INP 03-08 02:10 → M PCU 03-08 04:48 → M MSPAV 03-17 22:22
PROVIDERS: ADMIT Student in an Organized Health Care Education/Training Program; ATTEND Internal Medicine
PROC: 02H633Z Insertion of Infusion Device into Right Atrium, Percutaneous Approach (ICD-10-PCS; 2025-03-14)
PROC: 0JH63XZ Insertion of Tunneled Vascular Access Device into Chest Subcutaneous Tissue and Fascia, Percutaneous Approach (ICD-10-PCS; principal; 2025-03-14 15:30)
PROC: 5A1D70Z Performance of Urinary Filtration, Intermittent, Less than 6 Hours Per Day (ICD-10-PCS; 2025-03-15)
PROC: 30233N1 Transfusion of Nonautologous Red Blood Cells into Peripheral Vein, Percutaneous Approach (ICD-10-PCS; 2025-03-15)
DX: N17.9 Acute kidney failure, unspecified (principal); I50.23 Acute on chronic systolic (congestive) heart failure; J96.01 Acute respiratory failure with hypoxia; I13.2 Hypertensive heart and chronic kidney disease with heart failure and with stage 5 chronic kidney disease, or end stage renal disease; D68.32 Hemorrhagic disorder due to extrinsic circulating anticoagulants; N39.0 Urinary tract infection, site not specified; D62 Acute posthemorrhagic anemia; E87.20 Acidosis, unspecified; N18.6 End stage renal disease; J44.9 Chronic obstructive pulmonary disease, unspecified; G47.33 Obstructive sleep apnea (adult) (pediatric); I48.0 Paroxysmal atrial fibrillation; I25.10 Atherosclerotic heart disease of native coronary artery without angina pectoris; E11.22 Type 2 diabetes mellitus with diabetic chronic kidney disease; N40.0 Benign prostatic hyperplasia without lower urinary tract symptoms; E78.5 Hyperlipidemia, unspecified; H40.9 Unspecified glaucoma; D63.1 Anemia in chronic kidney disease; D53.9 Nutritional anemia, unspecified; E11.51 Type 2 diabetes mellitus with diabetic peripheral angiopathy without gangrene; I25.5 Ischemic cardiomyopathy; E87.5 Hyperkalemia; I27.20 Pulmonary hypertension, unspecified; I95.9 Hypotension, unspecified; R31.9 Hematuria, unspecified; D50.9 Iron deficiency anemia, unspecified; B95.2 Enterococcus as the cause of diseases classified elsewhere; Z66 Do not resuscitate; Z79.51 Long term (current) use of inhaled steroids; Z85.820 Personal history of malignant melanoma of skin; Z79.01 Long term (current) use of anticoagulants; Z79.4 Long term (current) use of insulin; Z79.899 Other long term (current) drug therapy; Z87.891 Personal history of nicotine dependence; Z99.2 Dependence on renal dialysis; Z91.018 Allergy to other foods; Z91.030 Bee allergy status

== ENCOUNTER → 2025-03-29 | Outpatient (REF) | payer MEDICARE, OTHER ==
[~2025-03-29] MED LIST changes: +AMIO200T54 PO; +AMOX500C PO; +LANTINJ4 SC; +NOVO32MI SC; +OXYB5TAB14 PO; +THERTAB52 PO
== END ==
LOC: M SFHCPLAZ 12:12
PROVIDERS: ATTEND Family Medicine
DX: I48.19 Other persistent atrial fibrillation (principal); Z09 Encounter for follow-up examination after completed treatment for conditions other than malignant neoplasm; Z51.81 Encounter for therapeutic drug level monitoring

== ENCOUNTER → 2025-03-29 | Outpatient (CLI) | payer MEDICARE, OTHER ==
[2025-03-29 15:25] LABS: PLATELET COUNT, AUTOMATED 135 10^3/uL (150-450)
[2025-03-29 15:32] LABS: ALT/SGPT 47.0 U/L (7.0-40); AST/SGOT 36.0 U/L (<34); CALCIUM LEVEL 8.2 MG/DL (8.3-10.6); CARBON DIOXIDE LEVEL 31.0 MMOL/L (20-31); CHLORIDE LEVEL 96.0 MMOL/L (98-107); CREATININE FOR GFR 2.6 MG/DL (0.70-1.30); GLOMERULAR FILTRATION RATE 23.0 (>35); POTASSIUM SERUM 3.3 MMOL/L (3.5-5.1); SODIUM LEVEL 137.0 MMOL/L (136-145)
[2025-03-29 15:34] LABS: FREE T4 1.28 NG/DL (0.89-1.76)
== END ==
LOC: M PLALAB 12:40
PROVIDERS: ATTEND Family Medicine
DX: I48.19 Other persistent atrial fibrillation (principal); Z51.81 Encounter for therapeutic drug level monitoring

== ENCOUNTER → 2025-04-05 | Outpatient (REF) | payer MEDICARE, OTHER ==
[2025-04-05 13:42] LABS: APPEARANCE, URINE CLOUDY (CLEAR); BACTERIA, URINE AUTO NEGATIVE (NEGATIVE); BILIRUBIN, URINE AUTO NEGATIVE (NEGATIVE); BLOOD, URINE BLOOD 2+ (NEGATIVE); GLUCOSE, URINE (UA) AUTO 2+ mg/dL (NEGATIVE); KETONE, URINE AUTO NEGATIVE (NEGATIVE); LEUKOCYTE ESTERASE, URINE AUTO 2+ (NEGATIVE); NITRITE, URINE AUTO NEGATIVE (NEGATIVE); PROTEIN, URINE AUTO 3+ mg/dL (NEGATIVE); RBC, URINE AUTO 49 /HPF (0-3); SPECIFIC GRAVITY URINE AUTO 1.019 (1.002-1.035); SQUAMOUS EPITHELIAL CELL UR AU 0 /HPF (0-6); UROBILINOGEN, URINE AUTO 0.2 mg/dL (0.0-2.0); WBC, URINE AUTO TNTC /HPF (0-3)
== END ==
LOC: M SMT 12:39
PROVIDERS: ATTEND Physician Assistant
DX: R31.0 Gross hematuria (principal)

== ENCOUNTER 2025-04-17 15:59 | Inpatient (IN) | payer MEDICARE, OTHER ==
[~2025-04-17] VITALS: Ht 177.8 cm; Wt 86.0 kg
[2025-04-17 17:26] LABS: VENOUS BASE EXCESS 4.3 (-2.0-2.0); VENOUS HCO3 29.3 MMOL/L (23.0-27.0); VENOUS O2 SATURATION 61.8 % (60.0-80.0); VENOUS PARTIAL PRESSURE CO2 45.4 mmHg (38.0-50.0); VENOUS PARTIAL PRESSURE O2 33.8 mmHg (30.0-50.0); VENOUS PH 7.427 UNITS (7.330-7.430); VENOUS STANDARD HCO3 27.7 MMOL/L; VENOUS TOTAL CO2 30.6 MMOL/L (24.0-28.0)
[2025-04-17 17:35] LABS: BASO # 0.0 10^3/uL (0.0-0.2); BASO % 0.2 % (0.0-1.0); EOS # 0.1 10^3/uL (0.0-0.5); EOS % 2.1 % (0.0-3.0); LYMPH # 0.5 10^3/uL (1.5-5.0); LYMPH % 10.4 % (24.0-44.0); MONO # 0.4 10^3/uL (0.0-0.8); MONO % 8.3 % (2.0-8.0); NEUTROPHILS # 4.0 10^3/uL (1.5-8.5); NEUTROPHILS % 78.0 % (36.0-66.0); PLATELET COUNT, AUTOMATED 112 10^3/uL (150-450)
[2025-04-17 17:57] LABS: INR 1.39
[2025-04-17 18:02] LABS: CK-MB VALUE MASS 5.7 NG/ML (<3.6)
[2025-04-17 18:03] LABS: ALT/SGPT 50.0 U/L (7.0-40); AST/SGOT 63.0 U/L (<34); CALCIUM LEVEL 8.8 MG/DL (8.3-10.6); CARBON DIOXIDE LEVEL 29.0 MMOL/L (20-31); CHLORIDE LEVEL 96.0 MMOL/L (98-107); CREATININE FOR GFR 3.61 MG/DL (0.70-1.30); GLOMERULAR FILTRATION RATE 15.4 (>35); POTASSIUM SERUM 3.8 MMOL/L (3.5-5.1); SODIUM LEVEL 137.0 MMOL/L (136-145)
[2025-04-17 18:04] LABS: CPK CREATINE PHOSPHOKINASE 163.0 U/L (46-171); MB/CK RELATIVE INDEX 3.49 (< OR =4)
[2025-04-17] MEDS: TETANUS/DIPHTH/ACEL. PERTUSSIS 0.5 ML SYR IM.IMMUN ONE (18:35)
[2025-04-17 18:57] LABS: CK-MB VALUE MASS 6.7 NG/ML (<3.6)
[2025-04-17 18:59] LABS: CPK CREATINE PHOSPHOKINASE 164.0 U/L (46-171); MB/CK RELATIVE INDEX 4.08 (< OR =4)
[2025-04-17 20:57] LABS: CK-MB VALUE MASS 6.3 NG/ML (<3.6)
[2025-04-17 20:58] LABS: CPK CREATINE PHOSPHOKINASE 148.0 U/L (46-171); MB/CK RELATIVE INDEX 4.25 (< OR =4)
[2025-04-17] MEDS ORDERED: GLUCOSE 4 GM CHEW PO PRN (21:45)
[2025-04-17] MEDS ORDERED: HEPARIN SOD 5000 UNITS/ML 1 ML VIAL/SYRINGE SC SCH (21:45)
[2025-04-17] MEDS ORDERED: DEXTROSE 50% 50 ML SYRINGE IV PRN (21:45)
[2025-04-17] MEDS ORDERED: GLUCAGON INJ 1 MG VIAL SC PRN (21:45)
[2025-04-17] MEDS: IPRATROPIUM 0.5 MG/ALBUTEROL 2.5 MG INH SOL UD 3 ML NEB ONE (22:19)
[2025-04-17] MEDS: FUROSEMIDE 100 MG/10 ML VIAL IV ONE (23:00)
[2025-04-17] MEDS: METOPROLOL TART 12.5 MG PER 1/2 TAB PO SCH (23:01)
[2025-04-18] MEDS ORDERED: ROSU10TA90 PO (00:22)
[2025-04-18] MEDS ORDERED: AMIO200T55 PO (00:22)
[2025-04-18] MEDS ORDERED: ELIQ2.5T PO (00:22)
[2025-04-18] MEDS ORDERED: OXYB5TAB14 PO (00:22)
[2025-04-18] MEDS ORDERED: METO1TAB32 PO (00:41)
[2025-04-18 00:45] VITALS: BP 90/59; TEMP 98; O2SAT 98
[2025-04-18] MEDS ORDERED: HOME MED LIST COMPLETE! XX SCH ×2 (00:45→09:10)
[2025-04-18] MEDS: IPRATROPIUM 0.5 MG/ALBUTEROL 2.5 MG INH SOL UD 3 ML NEB SCH (01:26)
[2025-04-18 04:21] VITALS: BP 99/54; TEMP 98.1; O2SAT 100
[2025-04-18 05:50] LABS: PLATELET COUNT, AUTOMATED 107 10^3/uL (150-450)
[2025-04-18 06:24] LABS: CALCIUM LEVEL 8.4 MG/DL (8.3-10.6); CARBON DIOXIDE LEVEL 29.0 MMOL/L (20-31); CHLORIDE LEVEL 94.0 MMOL/L (98-107); CREATININE FOR GFR 3.85 MG/DL (0.70-1.30); GLOMERULAR FILTRATION RATE 14.3 (>35); POTASSIUM SERUM 3.8 MMOL/L (3.5-5.1); SODIUM LEVEL 136.0 MMOL/L (136-145)
[2025-04-18 08:01] VITALS: BP 91/59; TEMP 98.7; O2SAT 100
[2025-04-18] MEDS: INSULIN LISPRO (NovoLOG) PER UNIT SC SCH ×2 (08:07→21:00)
[2025-04-18] MEDS: AMIODARONE 200 MG TAB PO SCH (08:07)
[2025-04-18] MEDS: APIXABAN 2.5 MG TAB PO SCH (08:12)
[2025-04-18] MEDS ORDERED: HEPARIN 1,000 UNITS/ML 10 ML VIAL (FOR RADIOLOGY & DIALYSIS ONLY) XX SCH (08:25)
[2025-04-18] MEDS ORDERED: SODIUM CHLORIDE 0.9% 1000 ML IV PRN (08:25)
[2025-04-18] MEDS ORDERED: LIDOCAINE 1% SDV 5 ML VIAL SC PRN (08:25)
[2025-04-18] MEDS: METOPROLOL TART 12.5 MG PER 1/2 TAB PO SCH (09:00)
[2025-04-18] MEDS ORDERED: METOPROLOL SUCC. 25 MG *XL* TAB PO SCH (09:00)
[2025-04-18 11:06] LABS: HEPATITIS B SURFACE ANTIBODY NEGATIVE (POSITIVE)
[2025-04-18 11:55] VITALS: BP 96/53; TEMP 98.5; O2SAT 91
[2025-04-18 12:04] LABS: HEPATITIS C VIRUS ABY INDEX < 0.02 INDEX (<0.8)
[2025-04-18] MEDS: HEPARIN 1,000 UNITS/ML 10 ML VIAL (FOR RADIOLOGY & DIALYSIS ONLY) IV PRN (17:07)
[2025-04-18 19:34] VITALS: BP 106/65; TEMP 98.4; O2SAT 93
[2025-04-18] MEDS: SYMBICORT 160/4.5MCG INHALER 6GM INH SCH (19:53)
[2025-04-18] MEDS: LATANOPROST 0.005% OPHTH SOLN 2.5 ML OU SCH (21:06)
[2025-04-18] MEDS: BRIMONIDINE 0.1% OPHTH SOLN 5 ML OU SCH (21:07)
[2025-04-18] MEDS: ROSUVASTATIN 10 MG TAB PO SCH (21:07)
[2025-04-18] MEDS: TAMSULOSIN 0.4 MG CAP PO SCH (21:08)
[2025-04-18] MEDS: BENZONATATE 100 MG CAPSULE PO PRN (22:58)
[2025-04-19] VITALS (7 sets, daily range): BP systolic 96–118; BP diastolic 57–66; TEMP 97–98.1; O2SAT 90–96
[2025-04-19] MEDS ORDERED: HEPARIN 1,000 UNITS/ML 10 ML VIAL (FOR RADIOLOGY & DIALYSIS ONLY) XX SCH (06:00)
[2025-04-19] MEDS ORDERED: LIDOCAINE 1% SDV 5 ML VIAL SC PRN (06:00)
[2025-04-19] MEDS ORDERED: SODIUM CHLORIDE 0.9% 1000 ML IV PRN (06:00)
[2025-04-19] MEDS: HEPARIN 1,000 UNITS/ML 10 ML VIAL (FOR RADIOLOGY & DIALYSIS ONLY) IV PRN (10:17)
[2025-04-19] MEDS: guaiFENesin ER TABLET 600 MG TAB PO SCH (20:15)
[2025-04-19] MEDS: CHLORASEPTIC SPRAY MT PRN (22:03)
[2025-04-20] VITALS (11 sets, daily range): BP systolic 82–125; BP diastolic 52–69; TEMP 97.1–99.7; O2SAT 91–100
[2025-04-20] MEDS: RAMELTEON 8 MG TAB PO PRN (01:35)
[2025-04-20] MEDS ORDERED: SODIUM CHLORIDE HYPERTONIC 3% 4ML NEB SOL INH PRN (04:25)
[2025-04-20] MEDS: IPRATROPIUM 0.5 MG/ALBUTEROL 2.5 MG INH SOL UD 3 ML NEB ONE (04:40)
[2025-04-20 08:52] LABS: HBsAG CONFIRM SCRN NON-REACTIVE (NON-REACTIVE)
[2025-04-20] MEDS ORDERED: HEPARIN 1,000 UNITS/ML 10 ML VIAL (FOR RADIOLOGY & DIALYSIS ONLY) IV PRN (09:40)
[2025-04-20] MEDS ORDERED: HEPARIN 1,000 UNITS/ML 10 ML VIAL (FOR RADIOLOGY & DIALYSIS ONLY) XX SCH (09:40)
[2025-04-20] MEDS ORDERED: SODIUM CHLORIDE 0.9% 1000 ML IV PRN (09:40)
[2025-04-20] MEDS ORDERED: LIDOCAINE 1% SDV 5 ML VIAL SC PRN (09:40)
[2025-04-20] MEDS ORDERED: VANCOMYCIN HCL 1,000 MG, VIAL MATE ADAPTER 1 EACH in NS 250 ML IV SCH (11:45)
[2025-04-20] MEDS ORDERED: PIPERACILLIN/TAZOBACTAM SOD 3.375 GM in DEXTROSE 5% (D5W) ADV/MINI-BAG 50 ML IV SCH (11:45)
[2025-04-20] MEDS: NS 500 ML IV ONE ×2 (11:57→20:40)
[2025-04-20] MEDS ORDERED: ISOVUE-370 76% 100 ML VIAL As Ordered ONE (12:23)
[2025-04-20 12:24] LABS: PLATELET COUNT, AUTOMATED 109 10^3/uL (150-450)
[2025-04-20] MEDS: PIPERACILLIN/TAZOBACTAM SOD 4.5 GM in DEXTROSE 5% (D5W) ADV/MINI-BAG 50 ML IV SCH (13:20)
[2025-04-20 13:29] LABS: ALT/SGPT 40.0 U/L (7.0-40); AST/SGOT 48.0 U/L (<34); CALCIUM LEVEL 8.1 MG/DL (8.3-10.6); CARBON DIOXIDE LEVEL 22.0 MMOL/L (20-31); CHLORIDE LEVEL 99.0 MMOL/L (98-107); CREATININE FOR GFR 2.92 MG/DL (0.70-1.30); GLOMERULAR FILTRATION RATE 19.9 (>35); POTASSIUM SERUM 4.2 MMOL/L (3.5-5.1); SODIUM LEVEL 135.0 MMOL/L (136-145)
[2025-04-20] MEDS: VANCOMYCIN HCL 1,250 MG, VIAL MATE ADAPTER 1 EACH in NS 250 ML IV ONE (18:30)
[2025-04-20] MEDS: IPRATROPIUM 0.5 MG/ALBUTEROL 2.5 MG INH SOL UD 3 ML NEB SCH (19:17)
[2025-04-21] VITALS (7 sets, daily range): BP systolic 84–111; BP diastolic 52–68; TEMP 97.1–98.4; O2SAT 94–100
[2025-04-21 05:25] LABS: PLATELET COUNT, AUTOMATED 110 10^3/uL (150-450)
[2025-04-21 05:49] LABS: CALCIUM LEVEL 8.0 MG/DL (8.3-10.6); CARBON DIOXIDE LEVEL 23.0 MMOL/L (20-31); CHLORIDE LEVEL 101.0 MMOL/L (98-107); CREATININE FOR GFR 2.54 MG/DL (0.70-1.30); GLOMERULAR FILTRATION RATE 23.5 (>35); POTASSIUM SERUM 3.8 MMOL/L (3.5-5.1); SODIUM LEVEL 136.0 MMOL/L (136-145)
[2025-04-21] MEDS: predniSONE 20 MG TAB PO SCH (10:53)
[2025-04-21] MEDS ORDERED: VANCOMYCIN HCL 1,000 MG, VIAL MATE ADAPTER 1 EACH in NS 250 ML IV SCH (16:00)
[2025-04-21] MEDS: IPRATROPIUM 0.5 MG/ALBUTEROL 2.5 MG INH SOL UD 3 ML NEB PRN (19:40)
[2025-04-22] VITALS (7 sets, daily range): BP systolic 87–102; BP diastolic 52–62; TEMP 97.3–98.3; O2SAT 92–96
[2025-04-22 05:48] LABS: PLATELET COUNT, AUTOMATED 114 10^3/uL (150-450)
[2025-04-22] MEDS ORDERED: LIDOCAINE 1% SDV 5 ML VIAL SC PRN (06:00)
[2025-04-22] MEDS ORDERED: SODIUM CHLORIDE 0.9% 1000 ML IV PRN (06:00)
[2025-04-22] MEDS ORDERED: HEPARIN 1,000 UNITS/ML 10 ML VIAL (FOR RADIOLOGY & DIALYSIS ONLY) IV PRN (06:00)
[2025-04-22 06:18] LABS: CALCIUM LEVEL 8.1 MG/DL (8.3-10.6); CARBON DIOXIDE LEVEL 22.0 MMOL/L (20-31); CHLORIDE LEVEL 99.0 MMOL/L (98-107); CREATININE FOR GFR 3.45 MG/DL (0.70-1.30); GLOMERULAR FILTRATION RATE 16.3 (>35); POTASSIUM SERUM 4.5 MMOL/L (3.5-5.1); SODIUM LEVEL 134.0 MMOL/L (136-145)
[2025-04-22 11:04] LABS: IRON (FE) 76.0 UG/DL (65-175); PERCENT SATURATION 37.1 % (19.7-50.0)
[2025-04-22 11:06] LABS: VITAMIN B12 LEVEL 1995.0 PG/ML (211-911)
[2025-04-22] MEDS: HEPARIN 1,000 UNITS/ML 10 ML VIAL (FOR RADIOLOGY & DIALYSIS ONLY) XX SCH (13:30)
[2025-04-22] MEDS: MIDODRINE 5 MG TAB PO PRN (13:39)
[2025-04-22] MEDS: MIDODRINE 2.5 MG TAB PO ONE (17:35)
[2025-04-23] VITALS: BP 90/54; TEMP 98.5; O2SAT 96
[2025-04-23 04:00] VITALS: BP 102/62; TEMP 97.5; O2SAT 98
[2025-04-23 06:03] LABS: PLATELET COUNT, AUTOMATED 126 10^3/uL (150-450)
[2025-04-23 06:15] LABS: CALCIUM LEVEL 7.8 MG/DL (8.3-10.6); CARBON DIOXIDE LEVEL 23.0 MMOL/L (20-31); CHLORIDE LEVEL 99.0 MMOL/L (98-107); CREATININE FOR GFR 2.7 MG/DL (0.70-1.30); GLOMERULAR FILTRATION RATE 21.8 (>35); POTASSIUM SERUM 3.9 MMOL/L (3.5-5.1); SODIUM LEVEL 134.0 MMOL/L (136-145)
[2025-04-23 08:13] VITALS: BP 101/53; TEMP 97.6; O2SAT 97
[2025-04-23] MEDS: MIDODRINE 2.5 MG TAB PO SCH (09:12)
[2025-04-23 10:53] VITALS: BP 91/54; O2SAT 98
[2025-04-23] MEDS ORDERED: AMOX875T2 PO (11:49)
[2025-04-23] MEDS ORDERED: PRED20TA PO (11:49)
[2025-04-23] MEDS ORDERED: MIDO2.5T3 PO (11:49)
[2025-04-23 12:21] VITALS: BP 94/55; TEMP 97.5; O2SAT 98
[2025-04-23] MEDS ORDERED: MIDO5TA PO (12:43)
== END 2025-04-23 12:51 | disposition home health service (06) | DRG 871 ==
LOC: M ED 15:59 → EDBD 15:59 → M ED INP 16:00 → M PCU 04-18 00:44 → OBSVTOIN 04-21 13:13
PROVIDERS: ADMIT Internal Medicine; ATTEND Student in an Organized Health Care Education/Training Program
PROC: 5A1D70Z Performance of Urinary Filtration, Intermittent, Less than 6 Hours Per Day (ICD-10-PCS; principal; 2025-04-22)
DX: A41.9 Sepsis, unspecified organism (principal); I50.23 Acute on chronic systolic (congestive) heart failure; N18.6 End stage renal disease; J96.01 Acute respiratory failure with hypoxia; J15.9 Unspecified bacterial pneumonia; I13.2 Hypertensive heart and chronic kidney disease with heart failure and with stage 5 chronic kidney disease, or end stage renal disease; J44.1 Chronic obstructive pulmonary disease with (acute) exacerbation; E87.20 Acidosis, unspecified; J98.11 Atelectasis; R29.6 Repeated falls; I25.10 Atherosclerotic heart disease of native coronary artery without angina pectoris; I48.91 Unspecified atrial fibrillation; E78.5 Hyperlipidemia, unspecified; E11.22 Type 2 diabetes mellitus with diabetic chronic kidney disease; D63.1 Anemia in chronic kidney disease; N40.1 Benign prostatic hyperplasia with lower urinary tract symptoms; N32.81 Overactive bladder; E11.51 Type 2 diabetes mellitus with diabetic peripheral angiopathy without gangrene; G47.33 Obstructive sleep apnea (adult) (pediatric); B34.8 Other viral infections of unspecified site; I25.5 Ischemic cardiomyopathy; Z66 Do not resuscitate; Z79.4 Long term (current) use of insulin; Z99.2 Dependence on renal dialysis; Z79.899 Other long term (current) drug therapy; Z91.018 Allergy to other foods; Z91.030 Bee allergy status; Z95.5 Presence of coronary angioplasty implant and graft; Z85.828 Personal history of other malignant neoplasm of skin

== ENCOUNTER → 2025-05-05 | Outpatient (REF) | payer MEDICARE, OTHER ==
[~2025-05-05] MED LIST changes: +AMIO200T55 PO; +AMOX875T2 PO; +ELIQ2.5T PO; +MIDO2.5T3 PO; +MIDO5TA PO; +PRED20TA PO
[2025-05-05 18:46] LABS: ALT/SGPT 38.0 U/L (7.0-40); AST/SGOT 43.0 U/L (<34); CALCIUM LEVEL 7.8 MG/DL (8.3-10.6); CARBON DIOXIDE LEVEL 31.0 MMOL/L (20-31); CHLORIDE LEVEL 96.0 MMOL/L (98-107); CREATININE FOR GFR 2.29 MG/DL (0.70-1.30); GLOMERULAR FILTRATION RATE 26.6 (>35); POTASSIUM SERUM 3.2 MMOL/L (3.5-5.1); SODIUM LEVEL 137.0 MMOL/L (136-145)
[2025-05-05 18:48] LABS: BASO # 0.0 10^3/uL (0.0-0.2); BASO % 0.3 % (0.0-1.0); EOS # 0.2 10^3/uL (0.0-0.5); EOS % 2.9 % (0.0-3.0); LYMPH # 0.6 10^3/uL (1.5-5.0); LYMPH % 9.2 % (24.0-44.0); MONO # 0.5 10^3/uL (0.0-0.8); MONO % 7.4 % (2.0-8.0); NEUTROPHILS # 5.3 10^3/uL (1.5-8.5); NEUTROPHILS % 79.7 % (36.0-66.0); PLATELET COUNT, AUTOMATED 102 10^3/uL (150-450)
== END ==
LOC: M LABDRWCV 17:37
PROVIDERS: ATTEND Internal Medicine Medical Oncology
DX: D64.9 Anemia, unspecified (principal)

== ENCOUNTER → 2025-05-25 | Outpatient (CLI) | payer MEDICARE, OTHER | LOC: M PLALAB 12:02 | PROVIDERS: ATTEND Internal Medicine Cardiovascular Disease | DX: I48.19 Other persistent atrial fibrillation (principal) ==